=== PATIENT | female | born 1940 | race Two or more races ===

== ENCOUNTER → 2018-02-17 | Outpatient (CLI) | payer OTHER, MEDICAID | END | disposition home or self-care (01) | LOC: Rad HDHVI 15:59 | PROVIDERS: ATTEND Internal Medicine | DX: I87.2 Venous insufficiency (chronic) (peripheral) (principal); R00.2 Palpitations | CPT/HCPCS: 93306 ==

== ENCOUNTER → 2018-02-18 | Outpatient (CLI) | payer OTHER, MEDICAID ==
[~2018-02-18] VITALS: Ht 154.9 cm; Wt 88.0 kg
[~2018-02-18] MED LIST: ADENOSINE 74 MG in GIVE UN-DILUTED 0 ML IV ONE; ADENOSINE 90 MG/30 ML INJ IV ONE
== END | disposition home or self-care (01) ==
LOC: Rad HDHVI 10:01
PROVIDERS: ATTEND Internal Medicine
DX: I10 Essential (primary) hypertension (principal); I87.2 Venous insufficiency (chronic) (peripheral); I83.90 Asymptomatic varicose veins of unspecified lower extremity; E78.5 Hyperlipidemia, unspecified; J45.909 Unspecified asthma, uncomplicated; R00.2 Palpitations
CPT/HCPCS: 78452; 93005; 96374; 96375; A9500; J0153

== ENCOUNTER 2018-07-25 19:43 | Inpatient (IN) | payer OTHER, MEDICAID | END 2018-08-12 18:00 | disposition home or self-care (01) | LOC: OVERFLOW 07-26 04:34 → TELE-CENTR 08-05 13:25 → CENTRAL 08-10 13:37 → WEST WING 07-26 05:26 → TELE-CENTR 08-05 17:30 → ICU WEST 08-01 20:47 → WEST WING 07-26 05:18 → ER 19:43 | PROC: 0DV40ZZ Restriction of Esophagogastric Junction, Open Approach (ICD-10-PCS; 2018-07-27 11:25) | PROC: 5A1945Z Respiratory Ventilation, 24-96 Consecutive Hours (ICD-10-PCS; 2018-07-27 11:25) | PROC: 0BH17EZ Insertion of Endotracheal Airway into Trachea, Via Natural or Artificial Opening (ICD-10-PCS; 2018-07-27 11:25) | PROC: 0DS60ZZ Reposition Stomach, Open Approach (ICD-10-PCS; 2018-07-27 11:25) | PROC: 0DJD8ZZ Inspection of Lower Intestinal Tract, Via Natural or Artificial Opening Endoscopic (ICD-10-PCS; principal; 2018-07-27 11:45) | DX: K44.9 Diaphragmatic hernia without obstruction or gangrene (principal); K92.1 Melena; K57.30 Diverticulosis of large intestine without perforation or abscess without bleeding; I10 Essential (primary) hypertension; E78.5 Hyperlipidemia, unspecified; E66.9 Obesity, unspecified; K59.00 Constipation, unspecified; K64.8 Other hemorrhoids; K37 Unspecified appendicitis; S93.409A Sprain of unspecified ligament of unspecified ankle, initial encounter; D64.9 Anemia, unspecified ==

== ENCOUNTER 2018-09-25 00:13 | Emergency (ER) | payer OTHER, MEDICAID ==
[~2018-09-25] VITALS: Ht 147.3 cm; Wt 81.6 kg
[2018-09-25 03:11] VITALS: BP 111/56
[2018-09-25] MEDS ORDERED: HYDROcodone-ACET 5/325MG TAB PO ONE (04:00)
[2018-09-25] MEDS ORDERED: cefTRIAXone 1GM/50ML D5W 50 ML IV ONE (04:00)
[2018-09-25 05:31] LABS: Urine Bacteria FEW /hpf (None Seen); Urine Blood Negative /uL (Negative); Urine Mucus FEW (None Seen); Urine Specific Gravity 1.008 (1.001-1.035); Urine WBC 1 /hpf (0 - 5)
== END 2018-09-25 05:01 | disposition home or self-care (01) ==
LOC: EDBD 00:13 → ER 00:15
DX: N39.0 Urinary tract infection, site not specified (principal); J45.909 Unspecified asthma, uncomplicated; E78.5 Hyperlipidemia, unspecified; I10 Essential (primary) hypertension; M54.5 Low back pain; G89.29 Other chronic pain; Z90.49 Acquired absence of other specified parts of digestive tract
CPT/HCPCS: 81001; 96365; 99283; J0696

== ENCOUNTER 2019-06-26 12:21 | Emergency (ER) | payer OTHER, MEDICAID ==
[~2019-06-26] VITALS: Ht 152.4 cm; Wt 90.7 kg
[2019-06-26 16:59] VITALS: BP 137/64
== END 2019-06-26 17:26 | disposition home or self-care (01) ==
LOC: ER 12:26
DX: M17.11 Unilateral primary osteoarthritis, right knee (principal); D16.9 Benign neoplasm of bone and articular cartilage, unspecified; J45.909 Unspecified asthma, uncomplicated; E78.5 Hyperlipidemia, unspecified; I10 Essential (primary) hypertension
CPT/HCPCS: 73562

== ENCOUNTER → 2020-07-31 | Outpatient (CLI) | payer OTHER, MEDICAID | END | disposition home or self-care (01) | LOC: Rad HDHVI 08:17 | PROVIDERS: ATTEND Internal Medicine | DX: I08.2 Rheumatic disorders of both aortic and tricuspid valves (principal); R00.2 Palpitations; R07.9 Chest pain, unspecified | CPT/HCPCS: 93306 ==

== ENCOUNTER → 2020-08-22 | Outpatient (CLI) | payer OTHER, MEDICAID ==
[~2020-08-22] VITALS: Ht 160 cm; Wt 90.7 kg
[~2020-08-22] MED LIST changes: -ADENOSINE 74 MG in GIVE UN-DILUTED 0 ML IV ONE; +ADENOSINE 76 MG in GIVE UN-DILUTED 0 ML IV ONE
== END | disposition home or self-care (01) ==
LOC: Rad HDHVI 13:19
PROVIDERS: ATTEND Internal Medicine
DX: R06.02 Shortness of breath (principal); I10 Essential (primary) hypertension; E78.00 Pure hypercholesterolemia, unspecified; R07.9 Chest pain, unspecified; R00.2 Palpitations
CPT/HCPCS: 78452; 93005; 96374; 96375; A9500; J0153

== ENCOUNTER 2020-11-06 07:01 | Day surgery (SDC) | payer OTHER, MEDICAID ==
[~2020-11-06] VITALS: Ht 154.9 cm; Wt 93.0 kg
[~2020-11-06 07:01] MED LIST changes: -ADENOSINE 76 MG in GIVE UN-DILUTED 0 ML IV ONE; -ADENOSINE 90 MG/30 ML INJ IV ONE; +AML5T PO; +ASPI-498 PO; +ATOR40TA52 PO; +CHOL20007 PO; +FURO20TA3 PO; +POTA8TAB2 PO; +TIOT1AER INH; +ZOLP5TAB PO
[2020-11-06] MEDS ORDERED: VERAPAMIL 2.5MG/ML INJ 2ML VIAL IV ONE (08:19)
[2020-11-06] MEDS ORDERED: HEPARIN SODIUM (PORCINE) 5000 UNITS/ML 1ML VIAL ONE (08:19)
[2020-11-06] MEDS ORDERED: ANGIOMAX 250 MG VIAL IV ONE (08:19)
[2020-11-06] MEDS ORDERED: SODIUM CHL 0.9% 0 ML ONE (08:20)
[2020-11-06] MEDS ORDERED: MIDAZOLAM HCL 2MG/2ML 2ml VIAL (1mg/ml) ONE (08:20)
[2020-11-06] MEDS ORDERED: LIDOCAINE 2%HCL (LOCAL ANESTH.) INJ 20ML MDV ONE (08:20)
[2020-11-06] MEDS ORDERED: fentaNYL CITRATE 100 MCG/2 ML VL ONE (08:20)
[2020-11-06] MEDS ORDERED: ATROPINE SULF 1 MG/10ml SYR ONE (09:12)
[2020-11-06] MEDS ORDERED: ONDANSETRON HCL 4 MG/2 ML VIAL IV PRN (09:45)
[2020-11-06] MEDS ORDERED: HYDROcodone-ACET 5/325MG TAB PO PRN (09:45)
[2020-11-06] MEDS ORDERED: ACETAMINOPHEN 500 MG TAB PO PRN (09:45)
== END 2020-11-06 12:47 | disposition home or self-care (01) ==
LOC: CATH 07:01
PROVIDERS: ATTEND Internal Medicine
DX: R94.39 Abnormal result of other cardiovascular function study (principal); I10 Essential (primary) hypertension; E78.5 Hyperlipidemia, unspecified; J98.4 Other disorders of lung; Z79.82 Long term (current) use of aspirin; Z20.822 Contact with and (suspected) exposure to COVID-19; Z98.890 Other specified postprocedural states; Z79.899 Other long term (current) drug therapy; Z68.38 Body mass index [BMI] 38.0-38.9, adult
CPT/HCPCS: 93458; C1887; C1894; J1644; J2250; J3010; J7030; U0003; 99152

== ENCOUNTER 2020-11-12 18:30 | Emergency (ER) | payer OTHER, MEDICAID ==
[~2020-11-12] VITALS: Ht 154.9 cm; Wt 93.0 kg
[2020-11-12 19:12] LABS: Basophils # (auto) 0.1 10 ^3/uL (0-0.2); Basophils % (auto) 0.8 % (0.0-2.0); Eosinophils # (auto) 0.2 10 ^3/uL (0-0.8); Eosinophils % (auto) 3.4 % (0.0-7.0); Hematocrit 39.5 % (36.0-46.0); Hemoglobin 13.5 g/dL (12.2-16.2); Lymphocytes # (auto) 2.2 10 ^3/uL (0.4-5.4); Lymphocytes % (auto) 32.1 % (10.0-50.0); Mean Corpuscular Hemoglobin 31.2 pg (28.0-32.0); Mean Corpuscular Hgb Conc. 34.2 g/dL (32.0-36.0); Mean Corpuscular Volume 91.2 fL (80.0-100.0); Monocytes # (auto) 0.6 10 ^3/uL (0-1.3); Monocytes % (auto) 8.5 % (0.0-12.0); Neutrophils # (auto) 3.8 10 ^3/uL (1.6-8.6); Neutrophils % (auto) 55.2 % (37.0-80.0); Nucleated Red Blood Cells % 0.1 %; Platelet Count (auto) 223 10^3/uL (140-450); Red Blood Cells 4.33 10^6/uL (4.0-5.20); Red Cell Distribution Width 13.5 % (11.8-14.3); White Blood Cell 6.9 10^3/uL (4.4-10.8)
[2020-11-12 19:26] LABS: INR 0.93 (0.9-1.15)
[2020-11-12 19:27] LABS: Albumin 3.6 g/dL (3.4-5.0); Calcium 8.2 mg/dL (8.5-10.1); Lipase 113 U/L (73-393); Magnesium 2.2 mg/dL (1.6-2.6); Potassium 3.7 mmol/L (3.5-5.1)
[2020-11-12 19:31] LABS: BUN/Creatinine Ratio 21.2; Bilirubin, Total 0.3 mg/dL (0.2-1.0); Total Protein 7.1 g/dL (6.4-8.2)
[2020-11-12 21:57] LABS: Urine Bacteria NONE SEEN /hpf (None Seen); Urine Blood Negative /uL (Negative); Urine Specific Gravity 1.025 (1.001-1.035); Urine WBC 2 /hpf (0 - 5)
[2020-11-12] MEDS ORDERED: IOHEXOL 300 MG/ML 100ML BOTTLE IJ ONE (22:03)
[2020-11-13 00:01] VITALS: BP 123/56
== END 2020-11-13 01:45 | disposition home or self-care (01) ==
LOC: ER 18:32
DX: K43.9 Ventral hernia without obstruction or gangrene (principal); J45.909 Unspecified asthma, uncomplicated; E78.5 Hyperlipidemia, unspecified; I10 Essential (primary) hypertension; Z87.440 Personal history of urinary (tract) infections; Z87.442 Personal history of urinary calculi; Z90.49 Acquired absence of other specified parts of digestive tract; Z98.890 Other specified postprocedural states; Z79.899 Other long term (current) drug therapy; Z79.82 Long term (current) use of aspirin
CPT/HCPCS: 36415; 71045; 74177; 80053; 81001; 83605; 83690; 83735; 84484; 85025; 85610; 93005; 99285; Q9967

== ENCOUNTER 2021-04-09 11:33 | Inpatient (IN) | payer OTHER, MEDICAID ==
[~2021-04-09] VITALS: Ht 154.9 cm; Wt 94.8 kg
[2021-04-09] MEDS ORDERED: NEOSTIGMINE 1 MG/ML INJ (10mg/10ML VIAL) ONE (16:11)
[2021-04-09] MEDS ORDERED: fentaNYL CITRATE 100 MCG/2 ML VL ONE (16:11)
[2021-04-09] MEDS ORDERED: ONDANSETRON HCL 4 MG/2 ML VIAL ONE (16:11)
[2021-04-09] MEDS ORDERED: ROCURONIUM 10MG/ML 10ML VIAL IV ONE (16:11)
[2021-04-09] MEDS ORDERED: MEPERIDINE HCL (25 MG/ML) 1ML VIAL ONE (16:11)
[2021-04-09] MEDS ORDERED: MIDAZOLAM HCL 2MG/2ML 2ml VIAL (1mg/ml) ONE (16:11)
[2021-04-09] MEDS ORDERED: PROPOFOL 10 MG/ML 20 ML IV ONE (16:11)
[2021-04-09] MEDS ORDERED: SODIUM CHLORIDE LOCK 10 ML ONE (16:11)
[2021-04-09] MEDS ORDERED: GLYCOPYRROLATE 0.2 MG/ML 1ML VIAL ONE (16:11)
[2021-04-09] MEDS ORDERED: hydrALAZINE HCL 20 MG/ML VL ONE (16:24)
[2021-04-09] MEDS ORDERED: LIDOCAINE W/ EPINEPHRINE 1% 20ML VIAL ONE (16:41)
[2021-04-09] MEDS ORDERED: BUPIVACAINE 0.25% INJ 50ML VIAL ONE (16:42)
[2021-04-09] MEDS ORDERED: SUCCINYLCHOLINE CHLORIDE 20 MG/ML 10ML VIAL IV ONE (16:53)
[2021-04-09] MEDS ORDERED: ceFAZolin 1GM/50ML 100 ML IV ONE (17:04)
[2021-04-09] MEDS ORDERED: POVIDONE IODINE 10 % TOPICAL OINT 30GM TOP ONE (18:17)
[2021-04-09] MEDS ORDERED: METOCLOPRAMIDE HCL 5MG/ml INJ 2ml VIAL IV PRN (18:45)
[2021-04-09] MEDS ORDERED: MORPHINE SULFATE 4 MG/ML SYR/VIAL IV PRN (18:45)
[2021-04-09] MEDS ORDERED: ONDANSETRON HCL 4 MG/2 ML VIAL IV PRN (18:45)
[2021-04-09] MEDS ORDERED: HYDROmorphone HCL 2 MG/ML VL IV PRN (18:45)
[2021-04-09] MEDS: HYDROmorphone HCL 2 MG/ML VL IV PRN ×2 (18:45→19:32)
[2021-04-09] MEDS ORDERED: MORPHINE SULFATE INJECTION 2 MG/ML SYRG IV PRN (19:45)
[2021-04-09] MEDS ORDERED: NITROGLYCERIN 0.4 MG SL TAB SL PRN (19:45)
[2021-04-09] MEDS ORDERED: hydrALAZINE HCL 20 MG/ML VL IV PRN (19:45)
[2021-04-09 21:30] VITALS: BP 136/97
[2021-04-09 21:37] VITALS: BP 136/97
[2021-04-09] MEDS: D5W/SOD CHL 0.45%/KCL 20MEQ 1,000 ML IV SCH (21:37)
[2021-04-10] MEDS ORDERED: PNEUMOCOCCAL VACC POLYS 25 MCG/0.5 ML VIAL IM ONE (01:30)
[2021-04-10] MEDS ORDERED: INFLUENZA QUAD 2021-2022 0.5 ML SYRG IM ONE (01:30)
[2021-04-10 04:53] VITALS: BP 114/55
[2021-04-10 07:20] LABS: Basophils # (auto) 0 10 ^3/uL (0-0.2); Basophils % (auto) 0.3 % (0.0-2.0); Eosinophils # (auto) 0 10 ^3/uL (0-0.8); Hematocrit 38.8 % (36.0-46.0); Hemoglobin 13.2 g/dL (12.2-16.2); Lymphocytes # (auto) 0.6 10 ^3/uL (0.4-5.4); Lymphocytes % (auto) 8.3 % (10.0-50.0); Mean Corpuscular Hemoglobin 31.1 pg (28.0-32.0); Mean Corpuscular Hgb Conc. 34.1 g/dL (32.0-36.0); Mean Corpuscular Volume 91.3 fL (80.0-100.0); Monocytes # (auto) 0.1 10 ^3/uL (0-1.3); Neutrophils # (auto) 6.7 10 ^3/uL (1.6-8.6); Neutrophils % (auto) 90.4 % (37.0-80.0); Red Blood Cells 4.25 10^6/uL (4.0-5.20); Red Cell Distribution Width 13.7 % (11.8-14.3); White Blood Cell 7.5 10^3/uL (4.4-10.8)
[2021-04-10 07:30] LABS: Albumin 2.9 g/dL (3.4-5.0); Calcium 8.1 mg/dL (8.5-10.1); Potassium 4.3 mmol/L (3.5-5.1)
[2021-04-10 07:33] LABS: BUN/Creatinine Ratio 18.8; Bilirubin, Total 0.3 mg/dL (0.2-1.0); Total Protein 6.2 g/dL (6.4-8.2)
[2021-04-10 09:00] VITALS: BP 129/72
[2021-04-10] MEDS ORDERED: cefTRIAXone 1GM/50ML D5W 50 ML IV ONE (09:00)
[2021-04-10] MEDS: PANTOPRAZOLE 40 MG/10 ML VIAL INJ IV SCH (10:36)
[2021-04-10] MEDS: D5W/SOD CHL 0.45%/KCL 20MEQ 1,000 ML IV SCH ×2 (11:45→23:50)
[2021-04-10 13:00] VITALS: BP 124/50
[2021-04-10 17:00] VITALS: BP 156/56
[2021-04-10] MEDS ORDERED: BENA20TA14 PO (18:02)
[2021-04-10 22:00] VITALS: BP 129/50
[2021-04-11 03:08] VITALS: BP 129/50
[2021-04-11 05:00] VITALS: BP 143/50
[2021-04-11 09:00] VITALS: BP 136/68
[2021-04-11 09:28] LABS: Basophils # (auto) 0 10 ^3/uL (0-0.2); Basophils % (auto) 0.6 % (0.0-2.0); Eosinophils # (auto) 0 10 ^3/uL (0-0.8); Eosinophils % (auto) 0.4 % (0.0-7.0); Hematocrit 37.1 % (36.0-46.0); Hemoglobin 12.3 g/dL (12.2-16.2); Lymphocytes # (auto) 1.4 10 ^3/uL (0.4-5.4); Lymphocytes % (auto) 18.2 % (10.0-50.0); Mean Corpuscular Hemoglobin 30.5 pg (28.0-32.0); Mean Corpuscular Hgb Conc. 33.2 g/dL (32.0-36.0); Mean Corpuscular Volume 91.9 fL (80.0-100.0); Monocytes # (auto) 0.6 10 ^3/uL (0-1.3); Monocytes % (auto) 7.8 % (0.0-12.0); Neutrophils # (auto) 5.8 10 ^3/uL (1.6-8.6); Red Blood Cells 4.04 10^6/uL (4.0-5.20); Red Cell Distribution Width 13.9 % (11.8-14.3); White Blood Cell 7.9 10^3/uL (4.4-10.8)
[2021-04-11] MEDS: PANTOPRAZOLE 40 MG/10 ML VIAL INJ IV SCH (09:30)
[2021-04-11 09:45] LABS: BUN/Creatinine Ratio 17.9; Calcium 8.4 mg/dL (8.5-10.1); Magnesium 2.4 mg/dL (1.6-2.6); Potassium 4.3 mmol/L (3.5-5.1)
[2021-04-11 09:57] LABS: Cholesterol 166 mg/dL (< 200); HDL Cholesterol 53 mg/dL (40-59); LDL Cholesterol 95 mg/dL (< 100); Triglycerides 130 mg/dL (< 150)
[2021-04-11] MEDS: D5W/SOD CHL 0.45%/KCL 20MEQ 1,000 ML IV SCH ×2 (11:11→14:09)
[2021-04-11] MEDS: DOCUSATE SOD 100 MG CAP PO PRN ×2 (11:12→21:43)
[2021-04-11 13:00] VITALS: BP 139/65
[2021-04-11 16:48] VITALS: BP 156/97
[2021-04-11 22:00] VITALS: BP 147/66
[2021-04-12 05:00] VITALS: BP_SYST 150; BP_SYST 167; BP_DIAS 71; BP_DIAS 89
[2021-04-12] MEDS: D5W/SOD CHL 0.45%/KCL 20MEQ 1,000 ML IV SCH (06:25)
[2021-04-12] MEDS: IPRATROPIUM BROM 0.5 MG/2.5ML INH SOL NEB PRN (07:01)
[2021-04-12] MEDS: ALBUTEROL SULF 2.5 MG/0.5ML(0.5%) NEB SOLN NEB PRN (07:01)
[2021-04-12 09:00] VITALS: BP 155/75
[2021-04-12] MEDS: PANTOPRAZOLE 40 MG/10 ML VIAL INJ IV SCH (09:18)
[2021-04-12 13:00] VITALS: BP 142/65
[2021-04-12] MEDS ORDERED: D5W/SOD CHL 0.45%/KCL 20MEQ 1,000 ML IV SCH (16:00)
[2021-04-12 17:00] VITALS: BP 146/79
[2021-04-12] MEDS: amLODIPine BESYLATE 5 MG TAB PO SCH (17:25)
[2021-04-12 22:00] VITALS: BP 140/62
[2021-04-13 05:00] VITALS: BP 139/73
[2021-04-13] MEDS: ALBUTEROL SULF 2.5 MG/0.5ML(0.5%) NEB SOLN NEB PRN (06:39)
[2021-04-13] MEDS: IPRATROPIUM BROM 0.5 MG/2.5ML INH SOL NEB PRN (06:39)
[2021-04-13 07:28] LABS: Basophils # (auto) 0.1 10 ^3/uL (0-0.2); Basophils % (auto) 0.9 % (0.0-2.0); Eosinophils # (auto) 0.5 10 ^3/uL (0-0.8); Eosinophils % (auto) 7.2 % (0.0-7.0); Hematocrit 40.3 % (36.0-46.0); Hemoglobin 13.2 g/dL (12.2-16.2); Lymphocytes % (auto) 30.7 % (10.0-50.0); Mean Corpuscular Hemoglobin 29.8 pg (28.0-32.0); Mean Corpuscular Hgb Conc. 32.7 g/dL (32.0-36.0); Monocytes # (auto) 0.6 10 ^3/uL (0-1.3); Monocytes % (auto) 9.4 % (0.0-12.0); Neutrophils # (auto) 3.4 10 ^3/uL (1.6-8.6); Neutrophils % (auto) 51.8 % (37.0-80.0); Red Blood Cells 4.42 10^6/uL (4.0-5.20); Red Cell Distribution Width 13.9 % (11.8-14.3); White Blood Cell 6.5 10^3/uL (4.4-10.8)
[2021-04-13 07:49] LABS: BUN/Creatinine Ratio 11.8; Calcium 8.4 mg/dL (8.5-10.1); Magnesium 2.2 mg/dL (1.6-2.6); Potassium 4.3 mmol/L (3.5-5.1)
[2021-04-13 09:00] VITALS: BP 157/57
[2021-04-13] MEDS: PANTOPRAZOLE 40 MG/10 ML VIAL INJ IV SCH (10:35)
[2021-04-13] MEDS: amLODIPine BESYLATE 5 MG TAB PO SCH (10:36)
[2021-04-13 13:00] VITALS: BP 152/79
[2021-04-13] MEDS ORDERED: INFLUENZA QUAD 2021-2022 0.5 ML SYRG IM ONE (17:15)
== END 2021-04-13 17:55 | disposition home health service (06) | DRG 355 ==
LOC: SUR 11:33 → TELE 19:33 → TELE-WESTW 20:45
PROVIDERS: ADMIT Nurse Practitioner Acute Care; ATTEND Internal Medicine
PROC: 0WQF0ZZ Repair Abdominal Wall, Open Approach (ICD-10-PCS; principal; 2021-04-09 17:03)
DX: K43.6 Other and unspecified ventral hernia with obstruction, without gangrene (principal); K44.9 Diaphragmatic hernia without obstruction or gangrene; I10 Essential (primary) hypertension; E66.9 Obesity, unspecified; G47.33 Obstructive sleep apnea (adult) (pediatric); E78.5 Hyperlipidemia, unspecified; J45.909 Unspecified asthma, uncomplicated; Z68.38 Body mass index [BMI] 38.0-38.9, adult
CPT/HCPCS: 36415; 80048; 80053; 80061; 83735; 85025; 90686; 97163; C9113; G0378; J0330; J0690; J0696; J2250; J2405; J2704; J3490

== ENCOUNTER 2023-01-01 06:41 | Inpatient (IN) | payer OTHER, MEDICAID ==
[~2023-01-01] VITALS: Ht 154.9 cm; Wt 103.0 kg
[~2023-01-01 06:41] MED LIST changes: +BENA-36 PO; -POTA8TAB2 PO; +POTA8TAB38 PO; -ZOLP5TAB PO
[2023-01-01 07:20] LABS: Basophils # (auto) 0.1 10 ^3/uL (0-0.2); Eosinophils # (auto) 0.2 10 ^3/uL (0-0.8); Eosinophils % (auto) 3.2 % (0.0-7.0); Hematocrit 41.8 % (36.0-46.0); Hemoglobin 13.7 g/dL (12.2-16.2); Lymphocytes # (auto) 2.5 10 ^3/uL (0.4-5.4); Lymphocytes % (auto) 34.1 % (10.0-50.0); Mean Corpuscular Hemoglobin 30.3 pg (28.0-32.0); Mean Corpuscular Hgb Conc. 32.7 g/dL (32.0-36.0); Mean Corpuscular Volume 92.6 fL (80.0-100.0); Monocytes # (auto) 0.6 10 ^3/uL (0-1.3); Monocytes % (auto) 8.3 % (0.0-12.0); Neutrophils # (auto) 3.9 10 ^3/uL (1.6-8.6); Neutrophils % (auto) 53.4 % (37.0-80.0); Nucleated Red Blood Cells % 0.2 %; Red Blood Cells 4.51 10^6/uL (4.0-5.20); Red Cell Distribution Width 13.4 % (11.8-14.3); White Blood Cell 7.3 10^3/uL (4.4-10.8)
[2023-01-01 07:24] LABS: INR 0.95 (0.9-1.15); Partial Thromboplastin Time 26.5 SEC (24.5-34.5)
[2023-01-01 07:27] LABS: Albumin 3.6 g/dL (3.4-5.0); Calcium 9.2 mg/dL (8.5-10.1); Potassium 4.8 mmol/L (3.5-5.1)
[2023-01-01 07:31] LABS: BUN/Creatinine Ratio 23.1 (10.0-20.0); Bilirubin, Total 0.5 mg/dL (0.2-1.0); Total Protein 6.7 g/dL (6.4-8.2)
[2023-01-01] MEDS ORDERED: PRED20TA2 PO (07:54)
[2023-01-01] MEDS ORDERED: IPRATROPIUM BROM 0.5 MG/2.5ML INH SOL NEB ONE (08:00)
[2023-01-01] MEDS ORDERED: predniSONE 20 MG TAB PO ONE (08:00)
[2023-01-01] MEDS ORDERED: ALBUTEROL SULF 2.5 MG/0.5ML(0.5%) NEB SOLN NEB ONE (08:00)
[2023-01-01] MEDS ORDERED: IOHEXOL 350 MG/ML 100ML IJ ONE (09:44)
[2023-01-01] MEDS ORDERED: IPRATROPIUM BROM 0.5 MG/2.5ML INH SOL NEB PRN (12:45)
[2023-01-01] MEDS ORDERED: ONDANSETRON HCL 4 MG/2 ML VIAL IV PRN (12:45)
[2023-01-01] MEDS ORDERED: ALBUTEROL SULF 2.5 MG/0.5ML(0.5%) NEB SOLN NEB PRN (12:45)
[2023-01-01] MEDS ORDERED: MORPHINE SULFATE INJ 2 MG/ml SYRG IV PRN (12:45)
[2023-01-01 16:01] VITALS: BP 133/58
[2023-01-01] MEDS: ATORVASTATIN 20 MG TAB PO SCH (20:45)
[2023-01-01] MEDS: [UNRECOGNIZED DRUG - OTHER] IN SCH (20:46)
[2023-01-01 22:00] VITALS: BP 154/68
[2023-01-02] MEDS ORDERED: MELATONIN 5 MG TAB PO ONE (01:45)
[2023-01-02 05:00] VITALS: BP 155/85
[2023-01-02 06:07] LABS: Basophils # (auto) 0.1 10 ^3/uL (0-0.2); Basophils % (auto) 0.8 % (0.0-2.0); Eosinophils # (auto) 0.1 10 ^3/uL (0-0.8); Eosinophils % (auto) 1.2 % (0.0-7.0); Hematocrit 36.7 % (36.0-46.0); Hemoglobin 12.4 g/dL (12.2-16.2); Lymphocytes # (auto) 2.2 10 ^3/uL (0.4-5.4); Lymphocytes % (auto) 25.7 % (10.0-50.0); Mean Corpuscular Hemoglobin 30.7 pg (28.0-32.0); Mean Corpuscular Hgb Conc. 33.7 g/dL (32.0-36.0); Mean Corpuscular Volume 91.2 fL (80.0-100.0); Monocytes # (auto) 0.7 10 ^3/uL (0-1.3); Monocytes % (auto) 8.5 % (0.0-12.0); Neutrophils # (auto) 5.6 10 ^3/uL (1.6-8.6); Neutrophils % (auto) 63.8 % (37.0-80.0); Nucleated Red Blood Cells % 0.1 %; Red Blood Cells 4.03 10^6/uL (4.0-5.20); Red Cell Distribution Width 13.5 % (11.8-14.3); White Blood Cell 8.7 10^3/uL (4.4-10.8)
[2023-01-02 06:21] LABS: Potassium 3.8 mmol/L (3.5-5.1)
[2023-01-02 06:29] LABS: Albumin 2.9 g/dL (3.4-5.0); BUN/Creatinine Ratio 27.8 (10.0-20.0); Bilirubin, Total 0.4 mg/dL (0.2-1.0); Calcium 8.3 mg/dL (8.5-10.1)
[2023-01-02] MEDS: ASPirin-EC 81 mg tab PO SCH (06:46)
[2023-01-02] MEDS: FUROSEMIDE 20 MG TAB PO SCH (06:47)
[2023-01-02] MEDS: amLODIPine BESYLATE 5 MG TAB PO SCH (06:48)
[2023-01-02 09:11] VITALS: BP 107/65
[2023-01-02] MEDS: PANTOPRAZOLE 40 MG/10 ML VIAL INJ IV SCH (10:03)
[2023-01-02] MEDS: DOCUSATE SOD 100 MG CAP PO PRN (10:03)
[2023-01-02] MEDS: BENAZEPRIL HCL 10 MG TAB PO SCH (10:04)
[2023-01-02] MEDS: CHOLECALCIFEROL (VITD3) 2,000 UNIT CAP/TAB PO SCH (10:04)
[2023-01-02] MEDS: predniSONE 20 MG TAB PO SCH (10:04)
[2023-01-02 13:00] VITALS: BP 111/69
[2023-01-02 17:00] VITALS: BP 133/61
[2023-01-02] MEDS: [UNRECOGNIZED DRUG - OTHER] IN SCH (18:00)
[2023-01-02] MEDS: ATORVASTATIN 20 MG TAB PO SCH (18:48)
[2023-01-02 22:00] VITALS: BP 142/62
[2023-01-03 05:00] VITALS: BP 156/73
[2023-01-03] MEDS: ASPirin-EC 81 mg tab PO SCH (06:02)
[2023-01-03] MEDS: FUROSEMIDE 20 MG TAB PO SCH (06:03)
[2023-01-03] MEDS: amLODIPine BESYLATE 5 MG TAB PO SCH (06:03)
[2023-01-03 09:00] VITALS: BP 149/55
[2023-01-03] MEDS: DOCUSATE SOD 100 MG CAP PO PRN (09:13)
[2023-01-03] MEDS: PANTOPRAZOLE 40 MG/10 ML VIAL INJ IV SCH (09:13)
[2023-01-03] MEDS: CHOLECALCIFEROL (VITD3) 2,000 UNIT CAP/TAB PO SCH (09:13)
[2023-01-03] MEDS: predniSONE 20 MG TAB PO SCH (09:13)
[2023-01-03] MEDS: BENAZEPRIL HCL 10 MG TAB PO SCH (09:14)
[2023-01-03 13:00] VITALS: BP 135/91
[2023-01-03 17:00] VITALS: BP 109/43
[2023-01-03] MEDS: ATORVASTATIN 20 MG TAB PO SCH (17:12)
[2023-01-03] MEDS: [UNRECOGNIZED DRUG - OTHER] IN SCH (17:12)
[2023-01-03 22:00] VITALS: BP 118/57
[2023-01-03] MEDS: ZOLPIDEM TARTRATE 5 MG TAB PO PRN (23:56)
[2023-01-04] VITALS (7 sets, daily range): BP systolic 118–146; BP diastolic 49–76
[2023-01-04] MEDS: ASPirin-EC 81 mg tab PO SCH (06:19)
[2023-01-04] MEDS: FUROSEMIDE 20 MG TAB PO SCH (06:20)
[2023-01-04] MEDS: amLODIPine BESYLATE 5 MG TAB PO SCH (06:20)
[2023-01-04] MEDS: BENAZEPRIL HCL 10 MG TAB PO SCH (09:07)
[2023-01-04] MEDS: CHOLECALCIFEROL (VITD3) 2,000 UNIT CAP/TAB PO SCH (09:07)
[2023-01-04] MEDS: predniSONE 20 MG TAB PO SCH (09:07)
[2023-01-04] MEDS: PANTOPRAZOLE 40 MG/10 ML VIAL INJ IV SCH (09:07)
[2023-01-04] MEDS: ATORVASTATIN 20 MG TAB PO SCH (17:16)
[2023-01-04] MEDS: [UNRECOGNIZED DRUG - OTHER] IN SCH (17:55)
[2023-01-04] MEDS: ZOLPIDEM TARTRATE 5 MG TAB PO PRN (21:23)
[2023-01-05] VITALS (8 sets, daily range): BP systolic 119–148; BP diastolic 43–77
[2023-01-05] MEDS: FUROSEMIDE 20 MG TAB PO SCH (07:00)
[2023-01-05] MEDS: amLODIPine BESYLATE 5 MG TAB PO SCH (07:00)
[2023-01-05] MEDS: ASPirin-EC 81 mg tab PO SCH (07:00)
[2023-01-05] MEDS: CHOLECALCIFEROL (VITD3) 2,000 UNIT CAP/TAB PO SCH (09:12)
[2023-01-05] MEDS ORDERED: ADENOSINE 87 MG in GIVE UN-DILUTED 0 ML IV STA (09:22)
[2023-01-05] MEDS: BENAZEPRIL HCL 10 MG TAB PO SCH (09:57)
[2023-01-05] MEDS: predniSONE 20 MG TAB PO SCH (09:57)
[2023-01-05] MEDS: DOCUSATE SOD 100 MG CAP PO PRN (17:35)
[2023-01-05] MEDS: ATORVASTATIN 20 MG TAB PO SCH (17:35)
[2023-01-05] MEDS: [UNRECOGNIZED DRUG - OTHER] IN SCH (17:36)
[2023-01-05] MEDS: ZOLPIDEM TARTRATE 5 MG TAB PO PRN (23:06)
[2023-01-06 05:00] VITALS: BP 136/57
[2023-01-06] MEDS: ASPirin-EC 81 mg tab PO SCH (06:06)
[2023-01-06] MEDS: amLODIPine BESYLATE 5 MG TAB PO SCH (06:07)
[2023-01-06] MEDS: FUROSEMIDE 20 MG TAB PO SCH (06:07)
[2023-01-06 08:35] VITALS: BP 143/57
[2023-01-06] MEDS: predniSONE 20 MG TAB PO SCH (08:51)
[2023-01-06] MEDS: BENAZEPRIL HCL 10 MG TAB PO SCH (08:51)
[2023-01-06] MEDS: CHOLECALCIFEROL (VITD3) 2,000 UNIT CAP/TAB PO SCH (08:51)
[2023-01-06] MEDS ORDERED: LACT10PA2 PO (10:15)
[2023-01-06 12:41] VITALS: BP 130/60
== END 2023-01-06 13:31 | disposition home health service (06) | DRG 203 ==
LOC: ER 06:41 → OVERFLOW 12:46 → CENTRAL 17:40
PROVIDERS: ADMIT Nurse Practitioner Family; ATTEND Family Medicine
DX: J45.901 Unspecified asthma with (acute) exacerbation (principal); E78.00 Pure hypercholesterolemia, unspecified; I11.0 Hypertensive heart disease with heart failure; I50.9 Heart failure, unspecified; Z90.49 Acquired absence of other specified parts of digestive tract; Z87.442 Personal history of urinary calculi
CPT/HCPCS: 36415; 71045; 71275; 78452; 80053; 83880; 84484; 85025; 85379; 85610; 85730; 93005; 93017; 93306; 94640; C9113; G0378; J0153; J2405

== ENCOUNTER 2023-09-04 07:55 | Inpatient (IN) | payer OTHER, MEDICAID ==
[~2023-09-04] VITALS: Ht 152.4 cm; Wt 91.5 kg
[~2023-09-04 07:55] MED LIST changes: +LACT10PA2 PO; +PRED20TA2 PO
[2023-09-04 09:30] LABS: Basophils # (auto) 0.1 10 ^3/uL (0-0.2); Basophils % (auto) 1.2 % (0.0-2.0); Eosinophils # (auto) 0.3 10 ^3/uL (0-0.8); Eosinophils % (auto) 4.5 % (0.0-7.0); Hematocrit 42.6 % (36.0-46.0); Hemoglobin 13.9 g/dL (12.2-16.2); Lymphocytes # (auto) 2.3 10 ^3/uL (0.4-5.4); Lymphocytes % (auto) 33.4 % (10.0-50.0); Mean Corpuscular Hemoglobin 29.9 pg (28.0-32.0); Mean Corpuscular Hgb Conc. 32.6 g/dL (32.0-36.0); Mean Corpuscular Volume 91.7 fL (80.0-100.0); Monocytes # (auto) 0.6 10 ^3/uL (0-1.3); Monocytes % (auto) 9.1 % (0.0-12.0); Neutrophils # (auto) 3.6 10 ^3/uL (1.6-8.6); Neutrophils % (auto) 51.8 % (37.0-80.0); Nucleated Red Blood Cells % 0.1 %; Red Blood Cells 4.64 10^6/uL (4.0-5.20); Red Cell Distribution Width 14.5 % (11.8-14.3)
[2023-09-04 09:33] LABS: Urine Bacteria NONE SEEN /hpf (None Seen); Urine Blood Negative /uL (Negative); Urine Clarity Clear (Clear); Urine Color Yellow (Yellow); Urine Mucus FEW (None Seen); Urine Protein, UAD Negative (Negative); Urine Specific Gravity 1.025 (1.001-1.035); Urine Urobilinogen Normal (Negative); Urine WBC 3 /hpf (0 - 5); Urine pH 5.5 (5.0-8.0)
[2023-09-04 09:45] LABS: Alanine Aminotransferase 14 U/L (7-40); Albumin 4.3 g/dL (3.2-4.8); Alkaline Phosphatase 76 U/L (46-116); Anion Gap 2 (5-15); Aspartate Aminotransferase 17 U/L (13-40); BUN/Creatinine Ratio 17.8 (10.0-20.0); Blood Urea Nitrogen 13 mg/dL (9-23); Calcium 9.3 mg/dL (8.5-10.1); Carbon Dioxide 29 mmol/L (20-30); Chloride 111 mmol/L (98-107); Glucose 102 mg/dL (74-106); Potassium 5.2 mmol/L (3.5-5.1); Sodium 142 mmol/L (136-145)
[2023-09-04 09:46] LABS: Bilirubin, Total 0.5 mg/dL (0.2-1.0); Total Protein 6.9 g/dL (5.7-8.2)
[2023-09-04] MEDS: SODIUM CHLORIDE 0.9% 1,000 ML IV ONE (10:37)
[2023-09-04] MEDS: SODIUM CHLORIDE 0.9% 1,000 ML IV SCH (10:56)
[2023-09-04] MEDS: LACTULOSE 20Gm/30ML SOLN PO ONE (11:09)
[2023-09-04] MEDS: MILK OF MAGNESIA 30ML SUSP PO ONE (11:10)
[2023-09-04] MEDS: FLEET ENEMA(ADULT) 135 ML PR ONE (11:10)
[2023-09-04] MEDS: cefTRIAXone 1GM/50ML D5W 50 ML IV ONE (11:50)
[2023-09-04 11:57] LABS: LDL Cholesterol 98 mg/dL (< 100); Triglycerides 141 mg/dL (< 150)
[2023-09-04 11:59] LABS: Cholesterol 168 mg/dL (< 200); HDL Cholesterol 48 mg/dL (40-59)
[2023-09-04 18:56] VITALS: BP 120/59; PULSE 65; RESP 18; O2SAT 97
[2023-09-04 19:50] VITALS: O2SAT 95
[2023-09-04] MEDS: DOCUSATE SOD 100 MG CAP PO SCH (21:48)
[2023-09-04] MEDS: ATORVASTATIN 20 MG TAB PO SCH (21:48)
[2023-09-05] VITALS (8 sets, daily range): BP systolic 112–157; BP diastolic 50–81; PULSE 53–65; RESP 16–18; TEMP 97.4–98.9; O2SAT 93–98
[2023-09-05] MEDS: ACETAMINOPHEN 325 MG TAB PO PRN (01:41)
[2023-09-05 04:20] LABS: Basophils # (auto) 0.1 10 ^3/uL (0-0.2); Eosinophils # (auto) 0.4 10 ^3/uL (0-0.8); Eosinophils % (auto) 5.9 % (0.0-7.0); Hematocrit 38.7 % (36.0-46.0); Hemoglobin 12.7 g/dL (12.2-16.2); Lymphocytes # (auto) 2.5 10 ^3/uL (0.4-5.4); Lymphocytes % (auto) 36.6 % (10.0-50.0); Mean Corpuscular Hemoglobin 30.3 pg (28.0-32.0); Mean Corpuscular Hgb Conc. 32.8 g/dL (32.0-36.0); Mean Corpuscular Volume 92.2 fL (80.0-100.0); Monocytes # (auto) 0.6 10 ^3/uL (0-1.3); Monocytes % (auto) 9.6 % (0.0-12.0); Neutrophils # (auto) 3.2 10 ^3/uL (1.6-8.6); Neutrophils % (auto) 46.9 % (37.0-80.0); Nucleated Red Blood Cells % 0.1 %; Red Blood Cells 4.19 10^6/uL (4.0-5.20); Red Cell Distribution Width 14.4 % (11.8-14.3); White Blood Cell 6.7 10^3/uL (4.4-10.8)
[2023-09-05 04:39] LABS: Alanine Aminotransferase 13 U/L (7-40); Albumin 3.8 g/dL (3.2-4.8); Alkaline Phosphatase 67 U/L (46-116); Anion Gap 4 (5-15); Aspartate Aminotransferase 15 U/L (13-40); BUN/Creatinine Ratio 18.5 (10.0-20.0); Bilirubin, Total 0.4 mg/dL (0.2-1.0); Blood Urea Nitrogen 15 mg/dL (9-23); Calcium 9.1 mg/dL (8.7-10.4); Carbon Dioxide 26 mmol/L (20-30); Chloride 108 mmol/L (98-107); Glucose 99 mg/dL (74-106); Potassium 4.9 mmol/L (3.5-5.1); Sodium 138 mmol/L (136-145); Total Protein 6.2 g/dL (5.7-8.2)
[2023-09-05] MEDS ORDERED: RALO60TA14 PO (06:05)
[2023-09-05] MEDS ORDERED: FAMO-12 PO (06:05)
[2023-09-05] MEDS ORDERED: BUSP5TAB51 PO (06:05)
[2023-09-05] MEDS ORDERED: ENAL1TAB42 PO (06:05)
[2023-09-05] MEDS: FUROSEMIDE 20 MG TAB PO SCH (06:39)
[2023-09-05] MEDS: ASPirin-EC 81 mg tab PO SCH (06:39)
[2023-09-05] MEDS: amLODIPine BESYLATE 5 MG TAB PO SCH (06:39)
[2023-09-05] MEDS: ENOXAPARIN SOD 40 MG/0.4 ML SYRINGE SC SCH (09:26)
[2023-09-05] MEDS: CHOLECALCIFEROL (VITD3) 1,000UNIT=25mCg TAB PO SCH (09:26)
[2023-09-05] MEDS: cefTRIAXone 1GM/50ML D5W 50 ML IV SCH (09:43)
[2023-09-05] MEDS ORDERED: BENAZEPRIL HCL 10 MG TAB PO SCH (10:00)
[2023-09-05] MEDS: LACTULOSE 20Gm/30ML SOLN PO PRN (18:05)
[2023-09-06] VITALS (8 sets, daily range): BP systolic 128–151; BP diastolic 53–74; PULSE 55–85; RESP 17–18; TEMP 97.6–98.4; O2SAT 94–99
[2023-09-06] MEDS: MELATONIN 5 MG TAB PO ONE (03:00)
[2023-09-06 08:39] LABS: Hepatitis B Surface Antigen Negative (Negative)
[2023-09-06 09:01] LABS: Hepatitis C Antibody Negative (Negative)
[2023-09-06 12:22] LABS: Basophils # (auto) 0.1 10 ^3/uL (0-0.2); Eosinophils # (auto) 0.3 10 ^3/uL (0-0.8); Eosinophils % (auto) 5.4 % (0.0-7.0); Hematocrit 39.2 % (36.0-46.0); Hemoglobin 12.8 g/dL (12.2-16.2); Lymphocytes # (auto) 2.3 10 ^3/uL (0.4-5.4); Lymphocytes % (auto) 37.5 % (10.0-50.0); Mean Corpuscular Hemoglobin 29.9 pg (28.0-32.0); Mean Corpuscular Hgb Conc. 32.6 g/dL (32.0-36.0); Mean Corpuscular Volume 91.8 fL (80.0-100.0); Monocytes # (auto) 0.7 10 ^3/uL (0-1.3); Monocytes % (auto) 11.9 % (0.0-12.0); Neutrophils # (auto) 2.7 10 ^3/uL (1.6-8.6); Neutrophils % (auto) 44.2 % (37.0-80.0); Nucleated Red Blood Cells % 0.3 %; Red Blood Cells 4.27 10^6/uL (4.0-5.20); Red Cell Distribution Width 14.2 % (11.8-14.3); White Blood Cell 6.2 10^3/uL (4.4-10.8)
[2023-09-06 12:44] LABS: Alanine Aminotransferase 13 U/L (7-40); Albumin 3.6 g/dL (3.2-4.8); Alkaline Phosphatase 63 U/L (46-116); Anion Gap 5 (5-15); Aspartate Aminotransferase 15 U/L (13-40); BUN/Creatinine Ratio 16.2 (10.0-20.0); Bilirubin, Total 0.3 mg/dL (0.2-1.0); Blood Urea Nitrogen 11 mg/dL (9-23); Calcium 8.9 mg/dL (8.7-10.4); Carbon Dioxide 26 mmol/L (20-30); Chloride 108 mmol/L (98-107); Glucose 93 mg/dL (74-106); Potassium 4.4 mmol/L (3.5-5.1); Sodium 139 mmol/L (136-145); Total Protein 6.1 g/dL (5.7-8.2)
[2023-09-06] MEDS: SODIUM CHLORIDE 0.9% 1,000 ML IV SCH (12:45)
[2023-09-06 14:28] LABS: INR 0.96 (0.9-1.15); Partial Thromboplastin Time 29.7 SEC (24.5-34.5); Prothrombin Time 10.1 sec (9.3-11.8)
[2023-09-06] MEDS ORDERED: FAMO40TA7 PO (17:21)
[2023-09-06] MEDS ORDERED: GABA400C PO (17:27)
[2023-09-07] VITALS (13 sets, daily range): BP systolic 121–166; BP diastolic 49–86; PULSE 57–83; RESP 16–20; TEMP 97.3–98; O2SAT 94–100
[2023-09-07 06:18] LABS: Basophils # (auto) 0.1 10 ^3/uL (0-0.2); Basophils % (auto) 1.1 % (0.0-2.0); Eosinophils # (auto) 0.3 10 ^3/uL (0-0.8); Hematocrit 38.7 % (36.0-46.0); Hemoglobin 12.7 g/dL (12.2-16.2); Lymphocytes # (auto) 2.3 10 ^3/uL (0.4-5.4); Lymphocytes % (auto) 35.8 % (10.0-50.0); Mean Corpuscular Hemoglobin 30.3 pg (28.0-32.0); Mean Corpuscular Hgb Conc. 32.9 g/dL (32.0-36.0); Mean Corpuscular Volume 92.1 fL (80.0-100.0); Monocytes # (auto) 0.6 10 ^3/uL (0-1.3); Monocytes % (auto) 9.7 % (0.0-12.0); Neutrophils # (auto) 3.1 10 ^3/uL (1.6-8.6); Neutrophils % (auto) 48.4 % (37.0-80.0); Nucleated Red Blood Cells % 0.1 %; Red Cell Distribution Width 14.1 % (11.8-14.3); White Blood Cell 6.3 10^3/uL (4.4-10.8)
[2023-09-07 06:24] LABS: Anion Gap 6 (5-15); Carbon Dioxide 27 mmol/L (20-30); Chloride 108 mmol/L (98-107); Sodium 141 mmol/L (136-145)
[2023-09-07 06:30] LABS: BUN/Creatinine Ratio 15.2 (10.0-20.0); Blood Urea Nitrogen 10 mg/dL (9-23); Glucose 79 mg/dL (74-106); Magnesium 2.2 mg/dL (1.6-2.6)
[2023-09-07] MEDS: ALBUTEROL SULF 2.5 MG/0.5ML(0.5%) NEB SOLN NEB PRN (08:00)
[2023-09-07] MEDS ORDERED: hydrALAZINE HCL 20 MG/ML VL IV PRN (14:15)
[2023-09-08] VITALS (7 sets, daily range): BP systolic 107–142; BP diastolic 48–86; PULSE 64–94; RESP 16–20; TEMP 97.3–98.3; O2SAT 94–96
[2023-09-08 05:51] LABS: Basophils # (auto) 0.1 10 ^3/uL (0-0.2); Basophils % (auto) 0.7 % (0.0-2.0); Eosinophils # (auto) 0.2 10 ^3/uL (0-0.8); Eosinophils % (auto) 2.9 % (0.0-7.0); Hematocrit 39.5 % (36.0-46.0); Lymphocytes # (auto) 2.5 10 ^3/uL (0.4-5.4); Lymphocytes % (auto) 32.8 % (10.0-50.0); Mean Corpuscular Hemoglobin 30.2 pg (28.0-32.0); Mean Corpuscular Volume 91.5 fL (80.0-100.0); Monocytes # (auto) 0.8 10 ^3/uL (0-1.3); Monocytes % (auto) 9.8 % (0.0-12.0); Neutrophils # (auto) 4.1 10 ^3/uL (1.6-8.6); Neutrophils % (auto) 53.8 % (37.0-80.0); Red Blood Cells 4.31 10^6/uL (4.0-5.20); Red Cell Distribution Width 13.9 % (11.8-14.3); White Blood Cell 7.7 10^3/uL (4.4-10.8)
[2023-09-08 06:04] LABS: Anion Gap 10 (5-15); Carbon Dioxide 23 mmol/L (20-30); Chloride 108 mmol/L (98-107); Potassium 3.9 mmol/L (3.5-5.1); Sodium 141 mmol/L (136-145)
[2023-09-08 06:10] LABS: Blood Urea Nitrogen 12 mg/dL (9-23); Glucose 79 mg/dL (74-106)
[2023-09-08 06:11] LABS: Magnesium 2.2 mg/dL (1.6-2.6)
[2023-09-08] MEDS ORDERED: GASTROGRAFIN 120 ML SOL ONE (07:07)
== END 2023-09-08 14:03 | disposition home or self-care (01) | DRG 394 ==
LOC: ER 07:55 → OVERFLOW 10:49 → WEST WING 09-05 04:45
PROVIDERS: ADMIT Internal Medicine Geriatric Medicine; ATTEND Internal Medicine Geriatric Medicine
PROC: 05HD33Z Insertion of Infusion Device into Right Cephalic Vein, Percutaneous Approach (ICD-10-PCS; principal; 2023-09-06)
PROC: B54MZZA Ultrasonography of Right Upper Extremity Veins, Guidance (ICD-10-PCS; 2023-09-06)
DX: K40.30 Unilateral inguinal hernia, with obstruction, without gangrene, not specified as recurrent (principal); K56.600 Partial intestinal obstruction, unspecified as to cause; N39.0 Urinary tract infection, site not specified; K56.7 Ileus, unspecified; K56.41 Fecal impaction; I10 Essential (primary) hypertension; J45.909 Unspecified asthma, uncomplicated; E66.01 Morbid (severe) obesity due to excess calories; K57.30 Diverticulosis of large intestine without perforation or abscess without bleeding; N20.0 Calculus of kidney; E78.5 Hyperlipidemia, unspecified; Z87.440 Personal history of urinary (tract) infections; Z87.442 Personal history of urinary calculi; Z98.891 History of uterine scar from previous surgery; Z68.39 Body mass index [BMI] 39.0-39.9, adult; Z90.49 Acquired absence of other specified parts of digestive tract
CPT/HCPCS: 36415; 71045; 74176; 74250; 80048; 80053; 80061; 81001; 83735; 84443; 85025; 85610; 85730; 86803; 87086; 87088; 87186; 87340; 94640; 96365; G0378

== ENCOUNTER 2023-09-11 05:12 | Emergency (ER) | payer OTHER, MEDICAID ==
[~2023-09-11] VITALS: Ht 160 cm; Wt 94.5 kg
[~2023-09-11 05:12] MED LIST changes: -BENA-36 PO; +BUSP5TAB51 PO; +ENAL1TAB42 PO; +FAMO40TA7 PO; +GABA400C PO; -PRED20TA2 PO; +RALO60TA14 PO
[2023-09-11 05:17] VITALS: BP 142/67; PULSE 74; RESP 16; TEMP 99; O2SAT 98
[2023-09-11] MEDS: ONDANSETRON ODT 4 MG TAB PO ONE (06:28)
[2023-09-11] MEDS: HYDROcodone-ACET 5/325MG TAB PO ONE (06:29)
[2023-09-11] MEDS: methylPREDNISolone SOD SUCC 125 MG/2 ML VL IM ONE (06:29)
== END 2023-09-11 07:00 | disposition home or self-care (01) ==
LOC: ER 05:12
DX: M10.9 Gout, unspecified (principal); J45.909 Unspecified asthma, uncomplicated; E78.5 Hyperlipidemia, unspecified; I10 Essential (primary) hypertension; Z90.49 Acquired absence of other specified parts of digestive tract; Z87.442 Personal history of urinary calculi
CPT/HCPCS: 96372; 99283; J2930; Q0162

== ENCOUNTER → 2023-12-14 | Outpatient (CLI) | payer OTHER, MEDICAID ==
[~2023-12-14] MED LIST changes: +ALBUTEROL SULF 2.5 MG/0.5ML(0.5%) NEB SOLN ONE
== END | disposition home or self-care (01) ==
LOC: RT 10:00
PROVIDERS: ATTEND Internal Medicine Pulmonary Disease
DX: R06.02 Shortness of breath (principal); R06.09 Other forms of dyspnea; R05.9 Cough, unspecified
CPT/HCPCS: 94060; 94727; 94729

== ENCOUNTER 2024-05-05 12:07 | Emergency (ER) | payer OTHER, MEDICAID ==
[~2024-05-05] VITALS: Ht 154.9 cm; Wt 92.8 kg
[~2024-05-05 12:07] MED LIST changes: -ALBUTEROL SULF 2.5 MG/0.5ML(0.5%) NEB SOLN ONE
--- NOTE | 2024-05-05 13:05 | ED.PDOC ---
History of Present Illness HPI Comments 83 y.o female with PMH of asthma, HTN and hyperlipidemia, presents to the ED for a chief complaint of a productive cough and phlegm that started about 15 days ago. Patient reports recovering from flu like symptoms, felt better for 8 days after but recently cough has came back and states she is unable to spit phlegm out. Patient denies any fever, chills, chest pain, SOB. Patient has been seen by her PCP for this complaint but was told if symptoms persisted or worsened, to come into the ED for further workup. Time Seen by MD: 12:55 Primary Care Provider: Anish Reviewed Notes: Nurses Notes, Medications, Allergies Allergies: Coded Allergies: No Known Drug Allergy (Verified Allergy, Unknown, 11/04/20) Home Meds Active Scripts Azithromycin (Zithromax) 1 Gm Pow, 1 PACK PO ONCE, #1 PACK Prov:ROLAND TELLES MD 05/05/24 Lactulose (Lactulose) 10 Gm Pablo, 10 GM PO DAILY PRN, #240 PACK Prov:ALEXIS SAUNDERS MD 01/06/23 Reported Medications Gabapentin (Neurontin) 400 Mg Cap, 400 MG PO BID 09/06/23 Famotidine (Famotidine) 40 Mg Tab, 40 MG PO DAILY, TAB 09/06/23 Enalapril Maleate (Enalapril Maleate) 2.5 Mg Tab, 10 MG PO DAILY for 30 Days, MG 09/05/23 Buspirone Hcl (Buspirone Hcl) 5 Mg Tab, 5 MG PO Q12HR for 30 Days, MG 09/05/23 Raloxifene Hydrochloride (EVISTA TABLET) 60 Mg Tb, 1 TAB PO DAILY, #30 TAB 11 Refills 09/05/23 Cholecalciferol (VITAMIN D3) 2,000 Unit Tab, 1 TAB PO DAILY for SUPPLEMENT 11/04/20 Furosemide (Furosemide) 20 Mg Tab, 1 TAB PO QAM for PERIPHERAL EDEMA 11/04/20 Potassium Chloride (Klor-Con 8) 8 Meq Tab, 1 TAB PO DAILY for SUPPLEMENT 11/04/20 Atorvastatin Calcium (ATORVASTATIN CALCIUM) 40 Mg Tab, 1 TAB PO QPM for HIGH CHOLESTEROL 11/04/20 Aspirin (ASPIRIN 81) 81 Mg Tab, 1 TAB PO QAM for HEART ATTACK PREVENTION 11/04/20 Tiotropium Ruffin-Olodaterol (Stiolto Respimat 2.5-2.5 Mcg/Act) 1 Aer Aer, 2 PUFF INH QPM for ASTHMA 11/04/20 Amlodipine Besylate (NORVASC TABLET) 5 Mg Tb, 1 TAB PO QAM for HYPERTENSION 11/04/20 Information Source: Patient Mode of Arrival: Ambulatory Severity: Moderate Timing: Days (15) Duration: Since onset Past Medical History PAST MEDICAL HISTORY: Arthritis, Asthma, Gout, High Lipids, HTN, Kidney Stones, UTI'S Surgical History: Cholecystectomy, , Hernia Repair 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 Family History Family History: Unknown Social History Smoker: Non-Smoker Alcohol: Denies ETOH Use Drugs: Denies Drug Use Lives In: Home Constitutional: denies: chills, diaphoresis, fatigue, fever, malaise, sweats, weakness, others EENTM: denies: blurred vision, double vision, ear bleeding, ear discharge, ear drainage, ear pain, ear ringing, eye pain, eye redness, hearing loss, mouth pain, mouth swelling, nasal discharge, nose bleeding, nose congestion, nose pain, photophobia, tearing, throat pain, throat swelling, voice changes, others Respiratory: reports: cough; denies: hemoptysis, orthopnea, SOB at rest, shortness of breath, SOB with excertion, stridor, wheezing, others Cardiovascular: denies: chest pain, dizzy spells, diaphoresis, Dyspnea on exertion, edema, irregular heart beat, left arm pain, lightheadedness, palpitations, PND, syncope, others Gastrointestinal: denies: abdomen distended, abdominal pain, blood streaked bowels, constipated, diarrhea, dysphagia, difficulty swallowing, hematemesis, melena, nausea, poor appetite, poor fluid intake, rectal bleeding, rectal pain, vomiting, others Genitourinary: denies: abnormal vagina bleeding, burning, dyspareunia, dysuria, flank pain, frequency, hematuria, incontinence, pain, , vagina discharge, urgency, others Neurological: denies: dizziness, fainting, headache, left sided numbness, left sided weakness, numbness, paresthesia, pre-existing deficit, right sided numbness, right sided weakness, seizure, speech problems, tingling, tremors, weakness, others Musculoskeletal: denies: back pain, gout, joint pain, joint swelling, muscle pain, muscle stiffness, neck pain, others Integumetry: denies: bruises, change in color, change in hair/nails, dryness, laceration, lesions, lumps, rash, wounds, others Allergic/Immunocompromised: denies: Difficulty Healing, Frequent Infections, Hives, Itching, others Hematologic/Lymphatic: denies: anemia, blood clots, easy bleeding, easy bruising, swollen glands, others Endocrine: denies: excessive hunger, excessive sweating, excessive thirst, excessive urination, flushing, intolerance to cold, intolerance to heat, unexplained weight gain, unexplained weight loss, others Psychiatric: denies: anxiety, bipolar disorder, depression, hopeless, panic disorder, schizophrenia, sleepless, suicidal, others All Other Systems: Reviewed and Negative Physical Exam General Appearance: No Apparent Distress HEENT: Normal ENT Inspection, Pharynx Normal, TMs Normal Neck: Full Range of Motion, Non-Tender, Normal, Normal Inspection Respiratory: Chest Non-Tender, Lungs Clear, No Accessory Muscle Use, No Respiratory Distress, Normal Breath Sounds Cardiovascular: No Edema, No JVD, No Murmur, No Gallop, Normal Peripheral Pulses, Regular Rate/Rhythm Breast Exam: Deferred Gastrointestinal: No Organomegaly, Non Tender, No Pulsatile Mass, Normal Bowel Sounds, Soft Genitalia: Deferred Pelvic: Deferred Rectal: Deferred Extremities: No calf tenderness, Normal capillary refill, Normal inspection, Normal range of motion, Non-tender, No pedal edema Musculoskeletal : Apperance: Normal Neurologic: Alert, survey associate II-XII nml as Tested, No Motor Deficits, Normal Affect, Normal Mood, No Sensory Deficits Cerebellar Function: Normal Reflexes: Normal Skin: Dry, Normal Color, Warm Lymphatic: No Adenopathy Was a procedure done? Was a procedure done?: No Differential Dx Considerations may include: Influenza, URI, Bronchitis, asthma, pneumonia X-Ray, Labs, Meds, VS Vital Signs Date Time Temp Pulse Resp B/P (MAP) Pulse Ox O2 Delivery O2 Flow Rate FiO2 05/05/24 16:32 97.0 55 18 188/65 (106) 97 97.0 05/05/24 13:51 98.3 62 18 155/68 (97) 96 Lab Test 05/05/24 15:24 Range/Units Influenza Type A Antigen Negative Negative Influenza Type B Antigen Negative Negative SARS-CoV-2 Antigen (Rapid) Negative NEGATIVE The influenza a, influenza B and COVID test are negative Images Reviewed?: Images reviewed and evaluated by me Time of 1ST Reevaluation: 13:02 Reevaluation 1ST: Unchanged Patient Education/Counseling: Diagnosis, Treatment, Prognosis, Need For Follow Up Family Education/Counseling: Diagnosis, Treatment, Prognosis, Need For Follow U p Departure 1 Departure Time of Disposition: 17:27 Impression: Primary Impression: Acute bronchitis Qualified Codes: J20.9 - Acute bronchitis, unspecified Disposition: 01 HOME / SELF CARE / HOMELESS Condition: Fair e-Prescriptions Azithromycin (Zithromax) 1 Gm Pow 1 PACK PO ONCE, #1 PACK Prov: ROLAND TELLES MD 05/05/24 Discharged With: Self Critical Care Note Critical Care Time?: No Stability Stability form required: No I personally scribed for ROLAND TELLES MD ([email or web address]) on 05/05/24 at 13:05. Electronically submitted by Laura He ([facility]). ROLAND TELLES MD May 05, 2024 13:05
--- NOTE | 2024-05-05 13:57 | DVH ---
CHEST RADIOGRAPH Indication:cough Technique: Frontal and lateral view of the chest was obtained Comparison: CHEST TWO VIEWS ROUTINE on DOS: 11/04/20 FINDINGS: Lines and Tubes: None Lungs: Clear Pleura: No effusion. No pneumothorax. Cardiomediastinal contours: Vascular calcifications of the aorta Bones: Unremarkable IMPRESSION: No evidence of acute disease.
[2024-05-05 16:32] VITALS: BP 188/65; PULSE 55; RESP 18; TEMP 97; O2SAT 97
[2024-05-05 17:06] LABS: COVID19 ANTIGEN SOFIA FIA NEGATIVE (NEGATIVE); Rapid Influenza A Negative (Negative); Rapid Influenza B Negative (Negative)
[2024-05-05] MEDS ORDERED: AZIT1POW PO (17:26)
== END 2024-05-05 17:43 | disposition home or self-care (01) ==
LOC: ER 12:07
DX: J20.9 Acute bronchitis, unspecified (principal); J45.909 Unspecified asthma, uncomplicated; E78.5 Hyperlipidemia, unspecified; I10 Essential (primary) hypertension; M19.90 Unspecified osteoarthritis, unspecified site; Z79.899 Other long term (current) drug therapy; Z87.440 Personal history of urinary (tract) infections; Z90.49 Acquired absence of other specified parts of digestive tract; Z98.890 Other specified postprocedural states; Z20.822 Contact with and (suspected) exposure to COVID-19
CPT/HCPCS: 36415; 71046; 87426; 87804

== ENCOUNTER 2024-09-05 18:15 | Inpatient (IN) | payer OTHER, MEDICAID ==
[~2024-09-05] VITALS: Ht 154.9 cm; Wt 94.9 kg
[~2024-09-05 18:15] MED LIST changes: +AZIT1POW PO
[2024-09-05 19:07] LABS: Urine Bacteria None Seen /hpf (None Seen)
--- NOTE | 2024-09-05 19:08 | ED.PDOC ---
History of Present Illness HPI Comments 83 year old female accompanied by daughter presents to the ED with chief complaint of back pain. Patient reports that she has been experiencing bilateral lower back pain that radiates down her legs for the past few days. Patient relays that she was normally able to walk on her own with a cane, however, now s he has been in too much pain and too weak to walk on her own. Daughter states that besides the back pain, the patient has been experiencing a lingering cough, congestion, chills, and poor appetite for months. Patient notes she is worried she may have cancer. Patient denies any dysuria, N/V/D, chest pain, SOB, dizziness, headache, or fever. Chief Complaint: Back Pain Time Seen by MD: 19:02 Primary Care Provider: RHIANNON Reviewed Notes: Nurses Notes, Medications, Allergies Allergies: Coded Allergies: No Known Drug Allergy (Verified Allergy, Unknown, 11/04/20) Home Meds Active Scripts Azithromycin (Zithromax) 1 Gm Pow, 1 PACK PO ONCE, #1 PACK Prov:ROLAND TELLES MD 05/05/24 Lactulose (Lactulose) 10 Gm Pablo, 10 GM PO DAILY PRN, #240 PACK Prov:ALEXIS SAUNDERS MD 01/06/23 Reported Medications Gabapentin (Neurontin) 400 Mg Cap, 400 MG PO BID 09/06/23 Famotidine (Famotidine) 40 Mg Tab, 40 MG PO DAILY, TAB 09/06/23 Enalapril Maleate (Enalapril Maleate) 2.5 Mg Tab, 10 MG PO DAILY for 30 Days, MG 09/05/23 Buspirone Hcl (Buspirone Hcl) 5 Mg Tab, 5 MG PO Q12HR for 30 Days, MG 09/05/23 Raloxifene Hydrochloride (EVISTA TABLET) 60 Mg Tb, 1 TAB PO DAILY, #30 TAB 11 Refills 09/05/23 Cholecalciferol (VITAMIN D3) 2,000 Unit Tab, 1 TAB PO DAILY for SUPPLEMENT 11/04/20 Furosemide (Furosemide) 20 Mg Tab, 1 TAB PO QAM for PERIPHERAL EDEMA 11/04/20 Potassium Chloride (Klor-Con 8) 8 Meq Tab, 1 TAB PO DAILY for SUPPLEMENT 11/04/20 Atorvastatin Calcium (ATORVASTATIN CALCIUM) 40 Mg Tab, 1 TAB PO QPM for HIGH CHOLESTEROL 11/04/20 Aspirin (ASPIRIN 81) 81 Mg Tab, 1 TAB PO QAM for HEART ATTACK PREVENTION 11/04/20 Tiotropium Compton-Olodaterol (Stiolto Respimat 2.5-2.5 Mcg/Act) 1 Aer Aer, 2 PUFF INH QPM for ASTHMA 11/04/20 Amlodipine Besylate (NORVASC TABLET) 5 Mg Tb, 1 TAB PO QAM for HYPERTENSION 11/04/20 Information Source: Patient, Relative (Daughter) Mode of Arrival: Ambulatory Severity: Moderate Timing: Days Duration: Since onset Prehospital treatment: None Past Medical History PAST MEDICAL HISTORY: Anxiety, Arthritis, Asthma, Cancer, DM, Gout, High Lipids, HTN, Kidney Stones, UTI'S Past Medical History (Other): Cardiomegaly Surgical History: Cholecystectomy, , Hernia Repair 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 Family History Family History: Reviewed,noncontributory to illness, Unknown Social History Smoker: Non-Smoker Alcohol: Denies ETOH Use Drugs: Denies Drug Use Lives In: Home Constitutional: reports: chills, weakness; denies: diaphoresis, fatigue, fever, malaise, sweats, others EENTM: denies: blurred vision, double vision, ear bleeding, ear discharge, ear drainage, ear pain, ear ringing, eye pain, eye redness, hearing loss, mouth pain, mouth swelling, nasal discharge, nose bleeding, nose congestion, nose pain, photophobia, tearing, throat pain, throat swelling, voice changes, others Respiratory: reports: cough; denies: hemoptysis, orthopnea, SOB at rest, shortness of breath, SOB with excertion, stridor, wheezing, others Cardiovascular: denies: chest pain, dizzy spells, diaphoresis, Dyspnea on exertion, edema, irregular heart beat, left arm pain, lightheadedness, palpitations, PND, syncope, others Gastrointestinal: reports: poor appetite; denies: abdomen distended, abdominal pain, blood streaked bowels, constipated, diarrhea, dysphagia, difficulty swallowing, hematemesis, melena, nausea, poor fluid intake, rectal bleeding, rectal pain, vomiting, others Genitourinary: denies: abnormal vagina bleeding, burning, dyspareunia, dysuria, flank pain, frequency, hematuria, incontinence, pain, , vagina discharge, urgency, others Neurological: denies: dizziness, fainting, headache, left sided numbness, left sided weakness, numbness, paresthesia, pre-existing deficit, right sided numbness, right sided weakness, seizure, speech problems, tingling, tremors, weakness, others Musculoskeletal: reports: back pain, others (Leg pain); denies: gout, joint pain, joint swelling, muscle pain, muscle stiffness, neck pain Integumetry: denies: bruises, change in color, change in hair/nails, dryness, laceration, lesions, lumps, rash, wounds, others Allergic/Immunocompromised: denies: Difficulty Healing, Frequent Infections, Hives, Itching, others Hematologic/Lymphatic: denies: anemia, blood clots, easy bleeding, easy bruising, swollen glands, others Endocrine: denies: excessive hunger, excessive sweating, excessive thirst, excessive urination, flushing, intolerance to cold, intolerance to heat, unexplained weight gain, unexplained weight loss, others Psychiatric: denies: anxiety, bipolar disorder, depression, hopeless, panic disorder, schizophrenia, sleepless, suicidal, others All Other Systems: Reviewed and Negative Physical Exam General Appearance: Moderate Distress HEENT: Normal ENT Inspection, Pharynx Normal, TMs Normal Neck: Full Range of Motion, Non-Tender, Normal, Normal Inspection Respiratory: Chest Non-Tender, Lungs Clear, No Accessory Muscle Use, No Respiratory Distress, Normal Breath Sounds Cardiovascular: No Edema, No JVD, No Murmur, No Gallop, Normal Peripheral Pulses, Regular Rate/Rhythm Breast Exam: Deferred Gastrointestinal: No Organomegaly, Non Tender, No Pulsatile Mass, Normal Bowel Sounds, Soft Genitalia: Deferred Pelvic: Deferred Rectal: Deferred Extremities: No calf tenderness, Normal capillary refill, No pedal edema Musculoskeletal : Apperance: Normal Neurologic: Alert, respiratory equipment assistant II-XII nml as Tested, Motor Weakness, Normal Affect, Normal Mood, No Sensory Deficits Cerebellar Function: Normal Reflexes: Normal Skin: Dry, Normal Color, Warm Lymphatic: No Adenopathy Was a procedure done? Was a procedure done?: No Differential Dx Considerations may include: Generalized weakness, electrolyte imbalance, UTI, bowel obstruction X-Ray, Labs, Meds, VS Vital Signs Date Time Temp Pulse Resp B/P (MAP) Pulse Ox O2 Delivery O2 Flow Rate FiO2 09/05/24 18:37 98.8 88 21 152/62 (92) 96 Lab Test 09/05/24 19:16 09/05/24 18:37 Range/Units White Blood Count 9.4 4.4-10.8 10^3/uL Red Blood Count 4.80 4.0-5.20 10^6/uL Hemoglobin 14.7 12.2-16.2 g/dL Hematocrit 44.2 36.0-46.0 % Mean Corpuscular Volume 92.2 80.0-100.0 fL Mean Corpuscular Hemoglobin 30.7 28.0-32.0 pg Mean Corpuscular Hemoglobin Concent 33.3 32.0-36.0 g/dL Red Cell Distribution Width 13.7 11.8-14.3 % Platelet Count 230 140-450 10^3/uL Mean Platelet Volume 9.8 6.9-10.8 fL Neutrophils (%) (Auto) 58.6 37.0-80.0 % Lymphocytes (%) (Auto) 28.3 10.0-50.0 % Monocytes (%) (Auto) 9.9 0.0-12.0 % Eosinophils (%) (Auto) 2.3 0.0-7.0 % Basophils (%) (Auto) 0.9 0.0-2.0 % Neutrophils # (Auto) 5.5 1.6-8.6 10 ^3/uL Lymphocytes # (Auto) 2.6 0.4-5.4 10 ^3/uL Monocytes # (Auto) 0.9 0-1.3 10 ^3/uL Eosinophils # (Auto) 0.2 0-0.8 10 ^3/uL Basophils # (Auto) 0.1 0-0.2 10 ^3/uL Nucleated Red Blood Cells 0.0 % Sodium Level 139 136-145 mmol/L Potassium Level 4.3 3.5-5.1 mmol/L Chloride Level 105 98-107 mmol/L Carbon Dioxide Level 27 20-31 mmol/L Anion Gap 7 5-15 Blood Urea Nitrogen 18 9-23 mg/dL Creatinine 0.81 0.550-1.02 mg/dL Glomerular Filtration Rate Calc 72 >90 mL/min BUN/Creatinine Ratio 22.2 H 10.0-20.0 Serum Glucose 97 74-106 mg/dL Calcium Level 10.3 8.7-10.4 mg/dL Total Bilirubin 0.7 0.2-1.0 mg/dL Aspartate Amino Transferase (AST) 19 13-40 U/L Alanine Aminotransferase (ALT) 15 7-40 U/L Alkaline Phosphatase 72 46-116 U/L Total Protein 7.3 5.7-8.2 g/dL Albumin 4.5 3.2-4.8 g/dL Lipase 26 12-53 U/L Urine Color Light-yellow Yellow Urine Clarity Clear Clear Urine pH 5.5 5.0-9.0 Urine Specific Regent 1.016 1.001-1.035 Urine Protein Negative Negative Urine Ketones Trace Negative Urine Blood Negative Negative /uL Urine Nitrite Negative Negative Urine Bilirubin Negative Negative Urine Urobilinogen Normal Negative mg/dL Urine Leukocyte Esterase 1+ Negative /uL Urine RBC 1 0 - 4 /hpf Urine Microscopic WBC 15 H 0-5 /HPF Urine Squamous Epithelial Cells Few <5 /hpf Urine Bacteria None seen None Seen /hpf Urine Glucose Normal Normal mg/dL CT scan of the abdomen and pelvis shows: Impression: 1. No acute abdominopelvic abnormalities. 2. Diverticulosis without evidence of acute diverticulitis. 3. Punctate nonobstructive right nephrolithiasis. The urine test is positive for UTI The patient's CBC is within normal limits The chemistry panel is within normal limits The patient is given Rocephin 1 g IV piggyback An IV Hep-Lock was established Images Reviewed?: Images reviewed and evaluated by me Time of 1ST Reevaluation: 20:03 Reevaluation 1ST: Unchanged Patient Education/Counseling: Diagnosis, Treatment, Prognosis Family Education/Counseling: Diagnosis, Treatment, Prognosis Additional Information -Reviewed patient's previous visit(s): 05/05/24 for bronchitis - The following tests were ordered, and results were reviewed by me: CT Abd/Pel, CBC, CMP, UA, Lipase - Additional information was gathered from interviewing the following independent Historian: daughter - I reviewed and agreed with the following test results read by other provider: CT Abd/Pel - I discussed treatments and results with medical personnel and: patient and daughter Comprehensive systems review obtained and negative except for what is stated in the HPI. Departure 1 Departure Time of Disposition: 20:03 Impression: Primary Impression: Intractable abdominal pain Additional Impression: UTI (urinary tract infection) Qualified Codes: N30.00 - Acute cystitis without hematuria Disposition: ADMITTED INPATIENT Admit to: [facility] Surg Condition: Fair Critical Care Note Critical Care Time?: No Stability Stability form required: Yes Unstable for transfer: ED Physician Assesment (Clinical assesment) Heart Score Heart Score: Heart Score Response (Comments) Value History N/A 0 EKG N/A 0 Age N/A 0 Risk Factors N/A 0 Troponin N/A 0 Total 0 I personally scribed for ROLAND TELLES MD ([email or web address]) on 09/05/24 at 19:08. Electronically submitted by Kareem Juarez ([email or web address]). ROLAND TELLES MD Sep 05, 2024 19:08
[2024-09-05 19:16] LABS: Urine Blood Negative /uL (Negative); Urine Clarity Clear (Clear); Urine Color Light-Yellow (Yellow); Urine Protein, UAD Negative (Negative); Urine Specific Gravity 1.016 (1.001-1.035); Urine Squamous Epithelial Cell FEW /hpf (<5); Urine Urobilinogen Normal (Negative); Urine WBC 15 /HPF (0-5); Urine pH 5.5 (5.0-9.0)
[2024-09-05 19:38] LABS: Basophils # (auto) 0.1 10 ^3/uL (0-0.2); Basophils % (auto) 0.9 % (0.0-2.0); Eosinophils # (auto) 0.2 10 ^3/uL (0-0.8); Eosinophils % (auto) 2.3 % (0.0-7.0); Hematocrit 44.2 % (36.0-46.0); Hemoglobin 14.7 g/dL (12.2-16.2); Lymphocytes # (auto) 2.6 10 ^3/uL (0.4-5.4); Lymphocytes % (auto) 28.3 % (10.0-50.0); Mean Corpuscular Hemoglobin 30.7 pg (28.0-32.0); Mean Corpuscular Hgb Conc. 33.3 g/dL (32.0-36.0); Mean Corpuscular Volume 92.2 fL (80.0-100.0); Monocytes # (auto) 0.9 10 ^3/uL (0-1.3); Monocytes % (auto) 9.9 % (0.0-12.0); Neutrophils # (auto) 5.5 10 ^3/uL (1.6-8.6); Neutrophils % (auto) 58.6 % (37.0-80.0); Platelet Count (auto) 230 10^3/uL (140-450); Red Cell Distribution Width 13.7 % (11.8-14.3); White Blood Cell 9.4 10^3/uL (4.4-10.8)
[2024-09-05 19:53] LABS: Alanine Aminotransferase 15 U/L (7-40); Albumin 4.5 g/dL (3.2-4.8); Alkaline Phosphatase 72 U/L (46-116); Anion Gap 7 (5-15); Aspartate Aminotransferase 19 U/L (13-40); BUN/Creatinine Ratio 22.2 (10.0-20.0); Blood Urea Nitrogen 18 mg/dL (9-23); Calcium 10.3 mg/dL (8.7-10.4); Carbon Dioxide 27 mmol/L (20-31); Chloride 105 mmol/L (98-107); Glucose 97 mg/dL (74-106); Lipase 26 U/L (12-53); Potassium 4.3 mmol/L (3.5-5.1); Sodium 139 mmol/L (136-145); Total Protein 7.3 g/dL (5.7-8.2)
[2024-09-05 19:54] LABS: Bilirubin, Total 0.7 mg/dL (0.2-1.0)
--- NOTE | 2024-09-05 19:58 | DVH ---
Exam: CT CT AB PEL WO CON-NO ORAL OR IV History: weakness Comparison Study: CT CT AB PEL WO CON-NO ORAL OR IV on DOS: 09/04/23 TECHNIQUE: Multidetector CT of the abdomen and pelvis was performed from lung bases to pubic symphysi s. Imaging was performed without IV contrast. Axial, coronal, and sagittal multiplanar reformats were obtained from the axial data set by the technologist. RADIATION DOSE: DLP 1149.79 mGy.cm; CTDI vol 22.54 mGy. Findings: Lungs: The lung bases are clear. Heart: No cardiomegaly or pericardial effusion. Liver: Unremarkable. Gallbladder: Cholecystectomy. Spleen: Unremarkable Pancreas: Unremarkable Adrenals: Unremarkable Kidneys: Punctate nonobstructive right nephrolithiasis. GI tract: Diverticulosis without evidence of acute diverticulitis. : Unremarkable. Vasculature: Mild aortoiliac atherosclerosis. Lymphadenopathy: Absent Peritoneum: No ascites Musculoskeletal: Moderate multilevel degenerative changes of the thoracolumbar spine Soft tissues: Moderate right fat containing inguinal hernia. Impression: 1. No acute abdominopelvic abnormalities. 2. Diverticulosis without evidence of acute diverticulitis. 3. Punctate nonobstructive right nephrolithiasis.
[2024-09-05] MEDS: RALOXIFENE HCL 60 MG TAB PO ONE (21:45)
[2024-09-05] MEDS: ASPirin 81 mg TAB PO ONE (21:45)
[2024-09-05] MEDS ORDERED: ACETAMINOPHEN 325 MG TAB PO PRN (21:45)
[2024-09-05] MEDS: ENOXAPARIN SOD 40 MG/0.4 ML SYRINGE SC ONE (21:45)
[2024-09-05] MEDS: ENALAPRIL MALEATE 10 MG TAB PO ONE (21:45)
[2024-09-05] MEDS: SODIUM CHLORIDE 0.9% 500 ML IV ONE (21:45)
[2024-09-05] MEDS: OXYBUTYNIN CHL 5 MG TAB PO ONE (21:45)
--- NOTE | 2024-09-05 21:50 | DVHHPRES ---
History of Present Illness Resident Creating Document: FERNANDA JONES RESDIENT History of Present Illness + this is an 83-year-old female with past medical history of anxiety, osteoarthritis, asthma, cancer (possible cervical cancer), prediabetic, gout, dyslipidemia, hypertension came to the hospital due to lower back and bilateral lower limb pain. She also reports fever, chills, decreased appetite, cough, shortness of breaths and constipation. Due to bilateral knee pain secondary to osteoarthritis the patient was previously using cane but recently has been wheelchair-bound. Due to previous history of cancer, the patient afraid of having cancer. PMHx: anxiety, osteoarthritis, asthma, cancer (possible cervical cancer), prediabetic, gout, dyslipidemia, hypertension PSHx: Cholecystectomy, and hernia repair Family history: Noncontributory Social history: Lives with the family at home, denies smoking or any other drug use, uses wheelchair for mobility Home medication: Raloxifene, enalapril, oxybutynin, and multivitamins Allergic history: No known allergy Review of Systems Review of Systems General: Reports fever and chill HEENT: No headaches, visiual changes, hearing loss, tinnitus, nasal congestion and discharge, and sore throat. Cardiovascular: Denies chest pain, palpitations, dyspnea on exertion, orthopnea, or claudication. Respiratory: Reports cough and congestion Gastrointestinal: Denies nausea, vomiting, dysphagia, odynophagia, heartburn, abdominal pain, flatulence, bloating, diarrhea, constipation, change in stool, or blood in stool. Genitourinary: No dysuria, hematuria, discharge, frequency, urgency, nocturia, incontinence, and urinary retention. Endocrine: No heat or cold intolerance, polydipsia, polyuria, and polyphagia. Neurological: No dizziness, extremity weakness and numbness, tremors, gait disturbance, seizures, and memory impairment. Psychiatric: Denies depression, anxiety,or insomnia. Musculoskeletal: Reports lower back and bilateral lower limb pain Skin: No rashes, itching, skin lesion, changes in hair, nail, skin texture and breast. Hematologic/Lymphatic: Denies easy bruising, bleeding tendencies, or lymph node enlargement. Allergies: Coded Allergies: No Known Drug Allergy (Verified Allergy, Unknown, 11/04/20) Exam Vital Signs Vital Signs Date Time Temp Pulse Resp B/P (MAP) Pulse Ox O2 Delivery O2 Flow Rate FiO2 09/05/24 18:37 98.8 88 21 152/62 (92) 96 Exam General Appearance: Alert, Oriented X3, Cooperative, No acute distress HEENT: Atraumatic, PERRLA, EOMI, Mucous membrane moist/pink Respiratory: Clear to auscultation, Normal air movement Cardiovascular: Regular rate, Normal S1, Normal S2, No murmurs, no chest wall tenderness Abdominal: Mild suprapubic tenderness Extremities: Bilateral knee joint tenderness with restricted range of motion due to pain Skin: No rashes, No breakdown, No significant lesion Neuro: Normal gait, Normal speech, Strength at 5/5 X4 ext, Normal tone, Sensation intact, Cranial nerves 3-12 NL, Reflexes 2+ Psych/Mental Status: Mental status NL, Mood NL Labs/Xrays Labs Test 09/05/24 19:16 09/05/24 18:37 Range/Units White Blood Count 9.4 4.4-10.8 10^3/uL Red Blood Count 4.80 4.0-5.20 10^6/uL Hemoglobin 14.7 12.2-16.2 g/dL Hematocrit 44.2 36.0-46.0 % Mean Corpuscular Volume 92.2 80.0-100.0 fL Mean Corpuscular Hemoglobin 30.7 28.0-32.0 pg Mean Corpuscular Hemoglobin Concent 33.3 32.0-36.0 g/dL Red Cell Distribution Width 13.7 11.8-14.3 % Platelet Count 230 140-450 10^3/uL Mean Platelet Volume 9.8 6.9-10.8 fL Neutrophils (%) (Auto) 58.6 37.0-80.0 % Lymphocytes (%) (Auto) 28.3 10.0-50.0 % Monocytes (%) (Auto) 9.9 0.0-12.0 % Eosinophils (%) (Auto) 2.3 0.0-7.0 % Basophils (%) (Auto) 0.9 0.0-2.0 % Neutrophils # (Auto) 5.5 1.6-8.6 10 ^3/uL Lymphocytes # (Auto) 2.6 0.4-5.4 10 ^3/uL Monocytes # (Auto) 0.9 0-1.3 10 ^3/uL Eosinophils # (Auto) 0.2 0-0.8 10 ^3/uL Basophils # (Auto) 0.1 0-0.2 10 ^3/uL Nucleated Red Blood Cells 0.0 % Sodium Level 139 136-145 mmol/L Potassium Level 4.3 3.5-5.1 mmol/L Chloride Level 105 98-107 mmol/L Carbon Dioxide Level 27 20-31 mmol/L Anion Gap 7 5-15 Blood Urea Nitrogen 18 9-23 mg/dL Creatinine 0.81 0.550-1.02 mg/dL Glomerular Filtration Rate Calc 72 >90 mL/min BUN/Creatinine Ratio 22.2 H 10.0-20.0 Serum Glucose 97 74-106 mg/dL Calcium Level 10.3 8.7-10.4 mg/dL Total Bilirubin 0.7 0.2-1.0 mg/dL Aspartate Amino Transferase (AST) 19 13-40 U/L Alanine Aminotransferase (ALT) 15 7-40 U/L Alkaline Phosphatase 72 46-116 U/L Total Protein 7.3 5.7-8.2 g/dL Albumin 4.5 3.2-4.8 g/dL Lipase 26 12-53 U/L Urine Color Light-yellow Yellow Urine Clarity Clear Clear Urine pH 5.5 5.0-9.0 Urine Specific [place] 1.016 1.001-1.035 Urine Protein Negative Negative Urine Ketones Trace Negative Urine Blood Negative Negative /uL Urine Nitrite Negative Negative Urine Bilirubin Negative Negative Urine Urobilinogen Normal Negative mg/dL Urine Leukocyte Esterase 1+ Negative /uL Urine RBC 1 0 - 4 /hpf Urine Microscopic WBC 15 H 0-5 /HPF Urine Squamous Epithelial Cells Few <5 /hpf Urine Bacteria None seen None Seen /hpf Urine Glucose Normal Normal mg/dL Assessment/Plan Assessment/Plan Complicated UTI UA shows UTI picture Urine culture Empiric antibiotic, ceftriaxone IV fluid Acetaminophen History of cervical cancer Osteoarthritis Asthma Diabetes Gout Dyslipidemia Hypertension Continue home medicine DIET: Cardiac diet DVT PROPHYLAXIS: Lovenox BOWEL REGIMEN: Colace CODE STATUS: Goal of care discussed for more than 18 minutes, full code DISPOSITION: Med/surge Patient's status and paln discussed with the patient and the patient's granddaughter at the bedside. Case discussed with Dr. Pineda Plan discussed with: Patient, Other (RN) My Orders Orders - HEWADMAL,HEWAD RESDIENT Procedure Category Date Status Time Admit ADMIT 09/05/24 Transmitted 21:41 Stat Ekg For Chest SYLVIA 09/05/24 In Process Pain 21:41 Notify Md Of Changes SYLVIA 09/05/24 In Process From Base 21:41 Date of Service: Sep 05, 2024 Billing Provider: MANI PINEDA MD Common Visit Codes: [id number] INP/OBS CARE (HIGH) Secondary Visit Codes: [id number] CARE PLAN 30 MINUTES FERNANDA JONES RESDIENT Sep 05, 2024 21:49 MANI PINEDA MD Sep 06, 2024 17:44
[2024-09-05] MEDS: OXYBUTYNIN CHL 5 MG TAB PO SCH (22:00)
[2024-09-06 00:07] LABS: Barbiturate Scree,Urine Neg (NEGATIVE); Benzodiazephine Screen, Urine Neg (NEGATIVE); Opiate Scree,Urine Neg (NEGATIVE)
[2024-09-06 00:08] LABS: Amphetamine Screen, Urine Neg (NEGATIVE); Cannabinoid Screen, Urine Neg (NEGATIVE); Cocaine Screen, Urine Neg (NEGATIVE); Phencyclidine Screen, Urine Neg (NEGATIVE)
[2024-09-06] MEDS: cefTRIAXone 1GM/50ML D5W 50 ML IV ONE (00:19)
[2024-09-06 05:00] VITALS: PULSE 64; RESP 16; O2SAT 98
[2024-09-06] MEDS: PANTOPRAZOLE 40 MG TAB PO SCH (05:31)
[2024-09-06] MEDS: IBUPROFEN 400 MG TAB PO PRN (05:31)
[2024-09-06 07:24] LABS: Alanine Aminotransferase 11 U/L (7-40); Alkaline Phosphatase 61 U/L (46-116); Anion Gap 8 (5-15); Aspartate Aminotransferase 13 U/L (13-40); BUN/Creatinine Ratio 22.4 (10.0-20.0); Bilirubin, Total 0.6 mg/dL (0.2-1.0); Blood Urea Nitrogen 17 mg/dL (9-23); Calcium 9.7 mg/dL (8.7-10.4); Carbon Dioxide 26 mmol/L (20-31); Chloride 105 mmol/L (98-107); Glucose 98 mg/dL (74-106); Potassium 4.5 mmol/L (3.5-5.1); Sodium 139 mmol/L (136-145); Total Protein 6.4 g/dL (5.7-8.2)
[2024-09-06 07:29] LABS: Basophils # (auto) 0.1 10 ^3/uL (0-0.2); Basophils % (auto) 0.9 % (0.0-2.0); Eosinophils # (auto) 0.2 10 ^3/uL (0-0.8); Eosinophils % (auto) 2.5 % (0.0-7.0); Hematocrit 39.6 % (36.0-46.0); Hemoglobin 13.4 g/dL (12.2-16.2); Lymphocytes # (auto) 2.4 10 ^3/uL (0.4-5.4); Lymphocytes % (auto) 26.2 % (10.0-50.0); Mean Corpuscular Hemoglobin 31.1 pg (28.0-32.0); Mean Corpuscular Hgb Conc. 33.9 g/dL (32.0-36.0); Mean Corpuscular Volume 91.8 fL (80.0-100.0); Monocytes # (auto) 0.9 10 ^3/uL (0-1.3); Monocytes % (auto) 10.5 % (0.0-12.0); Neutrophils # (auto) 5.4 10 ^3/uL (1.6-8.6); Neutrophils % (auto) 59.9 % (37.0-80.0); Platelet Count (auto) 210 10^3/uL (140-450); Red Blood Cells 4.31 10^6/uL (4.0-5.20); Red Cell Distribution Width 13.5 % (11.8-14.3)
--- NOTE | 2024-09-06 07:45 | DVH ---
EXAM: XR Chest, 1 View CLINICAL INDICATION: pna TECHNIQUE: Frontal view of the chest. COMPARISON: XY CHEST XRAY 1 VIEW on DOS: 09/06/23, XY CHEST PORTABLE on DOS: 01/02/23, XY CHEST PORTAB LE on DOS: 01/01/23, CHEST XRAY 1 VIEW on DOS: 11/12/20 FINDINGS: LUNGS AND PLEURAL SPACES: Pulmonary venous congestion. No consolidation. No pneumothorax. HEART: Unremarkable. No cardiomegaly. MEDIASTINUM: Unremarkable. Normal mediastinal contour. BONES/JOINTS: Unremarkable. No acute fracture. OTHER FINDINGS: . IMPRESSION: Pulmonary venous congestion.
[2024-09-06 08:00] VITALS: PULSE 68; RESP 13; O2SAT 95
[2024-09-06 08:32] LABS: Rapid Influenza A Negative (Negative); Rapid Influenza B Negative (Negative)
[2024-09-06 08:34] LABS: COVID19 ANTIGEN SOFIA FIA NEGATIVE (NEGATIVE)
--- NOTE | 2024-09-06 08:38 | DVH ---
INDICATION: hx of Thickened endometrium measuring up to 17 mm. TECHNIQUE: Multiple real-time grayscale transabdominal sonographic images along with color and duplex Doppler of the uterus and ovaries were obtained. COMPARISON: None FINDINGS: Visualization of the pelvic structures due to obscuration from bowel gas. The uterus measures 5.9 x 3.2 x 2.1 cm. The endometrial stripe is not well visualized due to obscurat ion from bowel gas. Bilateral ovaries are not well visualized due to obscuration from bowel gas. IMPRESSION: Evaluation is limited due to exam obscuration from bowel gas. Bilateral ovaries not visualized. Lurdes l sonographic appearance of the uterus. Endometrium not well visualized due to obscuration from bowel gas.
[2024-09-06] MEDS: cefTRIAXone 1GM/50ML D5W 50 ML IV SCH (09:08)
[2024-09-06] MEDS: RALOXIFENE HCL 60 MG TAB PO SCH (10:17)
[2024-09-06] MEDS: ENALAPRIL MALEATE 10 MG TAB PO SCH (10:18)
[2024-09-06] MEDS: POLYETHYLENE GLYCOL 17 GM PWDR PO ONE (10:19)
[2024-09-06] MEDS: ASPirin 81 mg TAB PO SCH (10:19)
[2024-09-06] MEDS: ENOXAPARIN SOD 40 MG/0.4 ML SYRINGE SC SCH (10:20)
--- NOTE | 2024-09-06 12:53 | DVH ---
EXAM: CT LS SPINE WO CONTRAST HISTORY: midline tenderness, positive R slr test COMPARISON: None CTDIvol 38.22 mGy, DLP 1134.71 mGy*cm. TECHNIQUE: Multiple axial CT images of the spine were obtained using bone algorithm. Axial and coron al reformatting was done. Bone and soft tissue windows were reviewed. FINDINGS: No CT evidence of definite acute fracture, spinal dislocation, or significant appearing acute subluxa tion is seen. The visualized paraspinal soft tissues are grossly unremarkable. Diffuse osteopenia. Gr rima 1 anterolisthesis of L5 on S1. Multilevel degenerative changes of the spine with multilevel degenerative disc osteophyte hypertrophy most prominent at L4-L5 and L5-S1. There is suggestion of moderate canal stenosis at L3-L4 and L4-L5 . IMPRESSION: No definite CT evidence of acute fracture or dislocation of the bony lumbar spine.
--- NOTE | 2024-09-06 14:57 | DVHPNRES ---
Progress Note Date Seen: Sep 06, 2024 Resident Creating Document: HERI REGALADO RESIDENT Medical Necessity Reason Pt with a Central, PICC or Fol: No Subjective Review of Systems Mirna Pink is a [place]an-speaking 83 year old female with past medical history of hypertension, dyslipidemia, prediabetes, gout, osteoarthritis, asthma, ? Cervical cancer who presented to the ER with a chief complaint of lower back pain and bilateral posterior thigh pain for the past month. Per daughter present at bedside, patient was ambulatory a month back, but now she is less because of the pain in her back and bilateral hips and thighs. Reports that the pain is worsening with time, but denies any fever or chills, headache or urinary or bowel incontinence. The patient has a PCP who she saw 3 months back. On examination, patient had lumbar spinal midline tenderness positive straight leg test on the right side. CT lumbar spine without contrast completed showed No CT evidence of definite acute fracture, spinal dislocation, or significant appearing acute subluxation is seen. The visualized paraspinal soft tissues are grossly unremarkable. Diffuse osteopenia. Grade 1 anterolisthesis of L5 on S1. Multilevel degenerative changes of the spine with multilevel degenerative disc osteophyte hypertrophy most prominent at L4-L5 and L5-S1. There is suggestion of moderate canal stenosis at L3-L4 and L4-L5. Past medical history: See above Surgical history: , hernia repair, cholecystectomy Social history: Lives with daughter, denies smoking or drug use. Home medication: Raloxifene, enalapril, oxybutynin, and multivitamins Patient seen and examined in the ER. Daughter at bedside. Physical therapy consulted. Objective vital signs Vital Sign Date Time Temp Pulse Resp B/P (MAP) Pulse Ox O2 Delivery O2 Flow Rate FiO2 09/06/24 13:35 Room Air* 0 21 09/06/24 12:00 68 09/06/24 12:00 97.8 21 139/55 (83) 94 97.8 Total Intake and Output 09/05/24 09/05/24 09/06/24 15:00 23:00 07:00 Intake Total 550 ml Balance 550 ml medications Current Medications Medications Dose Ordered Sig/Rodney Route Start Time Stop Time Status Last Admin Dose Admin Ceftriaxone Sodium 50 ml @ 100 mls/hr DAILY@09 IV 09/06/24 09:00 09/06/24 09:08 100 MLS/HR Enalapril Maleate 10 mg DAILY PO 09/06/24 10:00 09/06/24 10:18 10 MG Raloxifene HCl 60 mg DAILY PO 09/06/24 10:00 09/06/24 10:17 60 MG Acetaminophen 650 mg Q4HP PRN PO 09/05/24 21:45 Ibuprofen 400 mg Q8HP PRN PO 09/05/24 21:45 09/06/24 05:31 400 MG Enoxaparin Sodium 40 mg DAILY SC 09/06/24 10:00 09/06/24 10:20 40 MG Pantoprazole Sodium 40 mg DAILY@0600 PO 09/06/24 06:00 09/06/24 05:31 40 MG Aspirin 81 mg DAILY PO 09/06/24 10:00 09/06/24 10:19 81 MG Oxybutynin Chloride 5 mg Q12HR PO 09/05/24 22:00 09/06/24 10:19 5 MG Examination Patient lying in bed, in no acute distress General: Well-built, afebrile, palor, mucosae are moist Cardiovascular: Regular S1 and S2. No murmurs, gallops or rubs. No JVD elevation. 1+ pitting edema Respiratory: Normal B/L air entry on room air. Bilateral crackles on lower base on auscultation Abdomen: Soft, nontender, nondistended, normoactive bowel sounds, no rebound tenderness, no organomegaly, no masses Genitourinary: Deferred MSK/skin: Mobilizes 4 limbs. Skin is dry and warm. Positive straight leg test on the right side that 60 degree. Midline lumbar spinal tenderness. Neurological: No motor, no sensitive deficits, normal speech. Pupils are isocoric and reactive. Psych/Mental Status: A/Ox3 laboratory and microbiology Laboratory Tests 09/06/24 06:43 Test 09/06/24 06:43 Range/Units Serum Glucose 98 74-106 mg/dL Labs and/or images reviewed: Labs reviewed by me, Image(s) reviewed by me Problem List/Assessment/Plan Problem List/Assessment/Plan Chronic lower back pain with positive straight leg test Diffuse osteopenia Degenerative disc disease L4-L5-S1 Spinal canal stenosis L3-L4-L5 CT lumbar spine, showed Diffuse osteopenia. Grade 1 anterolisthesis of L5 on S1. Multilevel degenerative changes of the spine with multilevel degenerative disc osteophyte hypertrophy most prominent at L4-L5 and L5-S1. There is suggestion of moderate canal stenosis at L3-L4 and L4-L5. Physical therapy consulted Continue home medication raloxifene 60 mg daily Acute cystitis IV ceftriaxone starting 09/05 Hypertension Continue home medication enalapril 10 mg daily History of asthma-controlled Albuterol nebulized treatment q.6 hour ?Diabetes mellitus type 2-hemoglobin A1c pending Plan discussed with patient and daughter at the bedside in which all questions have been answered Goals of care discussed with patient for more than 22 minutes, full code status Case discussed with Dr. Preez Plan discussed with: Patient My Orders My Orders Orders - HERI REGALADO Procedure Category Date Status Time Chest Xray 1 View XY 09/06/24 Resulted 07:21 Vitamin D, 25-Hydroxy LAB 09/07/24 Verified 04:00 Vitamin B12 LAB 09/07/24 Verified 04:00 Thyroid Stimulating LAB 09/07/24 Verified Hormone 04:00 PTPTT LAB 09/07/24 Verified 04:00 Pelvic US 09/06/24 Resulted 07:28 Ls Spine Wo Contrast CT 09/06/24 Resulted 09:41 Pt Request For Service PT 09/06/24 Logged 11:53 Date of Service: Sep 06, 2024 Billing Provider: JELANI PEREZ MD Common Visit Codes: [id number] INP/OBS CARE(HIGH) HERI REGALADO RESIDENT Sep 06, 2024 14:57 JELANI PEREZ MD Sep 06, 2024 21:16
[2024-09-06] MEDS ORDERED: ALBUTEROL SULF 2.5 MG/0.5ML(0.5%) NEB SOLN NEB SCH (15:15)
[2024-09-06] MEDS: DOCUSATE SOD 100 MG CAP PO ONE (16:21)
[2024-09-06 17:07] VITALS: BP 126/49; PULSE 64; RESP 21; TEMP 98.1; O2SAT 95
[2024-09-06 19:30] VITALS: PULSE 60; RESP 14; O2SAT 99
[2024-09-06] MEDS: ALBUTEROL SULF 2.5 MG/0.5ML(0.5%) NEB SOLN NEB SCH (19:30)
[2024-09-06 19:36] VITALS: PULSE 58; RESP 14; O2SAT 100
[2024-09-06 21:00] VITALS: BP 150/44; PULSE 62; RESP 18; TEMP 97.7; O2SAT 97
[2024-09-06] MEDS: DOCUSATE SOD 100 MG CAP PO SCH (22:59)
[2024-09-07] VITALS (12 sets, daily range): BP systolic 108–134; BP diastolic 39–67; PULSE 53–78; RESP 16–20; TEMP 97.9–98.4; O2SAT 94–100
[2024-09-07] MEDS ORDERED: ENAL1TAB46 PO (02:46)
[2024-09-07 09:11] LABS: Basophils # (auto) 0.1 10 ^3/uL (0-0.2); Basophils % (auto) 0.9 % (0.0-2.0); Eosinophils # (auto) 0.2 10 ^3/uL (0-0.8); Eosinophils % (auto) 3.2 % (0.0-7.0); Hemoglobin 13.7 g/dL (12.2-16.2); Lymphocytes # (auto) 2.2 10 ^3/uL (0.4-5.4); Mean Corpuscular Hemoglobin 31.1 pg (28.0-32.0); Mean Corpuscular Hgb Conc. 34.1 g/dL (32.0-36.0); Monocytes # (auto) 0.7 10 ^3/uL (0-1.3); Monocytes % (auto) 9.9 % (0.0-12.0); Platelet Count (auto) 239 10^3/uL (140-450); Red Cell Distribution Width 13.5 % (11.8-14.3); White Blood Cell 7.3 10^3/uL (4.4-10.8)
[2024-09-07 09:31] LABS: Chloride 104 mmol/L (98-107); Potassium 4.2 mmol/L (3.5-5.1); Sodium 139 mmol/L (136-145)
[2024-09-07 09:32] LABS: Anion Gap 6 (5-15); Calcium 9.7 mg/dL (8.7-10.4); Carbon Dioxide 29 mmol/L (20-31)
[2024-09-07 09:35] LABS: INR 0.95 (0.9-1.15); Partial Thromboplastin Time 26.7 SEC (24.5-34.5); Prothrombin Time 10.1 sec (9.3-11.8)
[2024-09-07 09:37] LABS: BUN/Creatinine Ratio 13.3 (10.0-20.0); Blood Urea Nitrogen 10 mg/dL (9-23); Glucose 106 mg/dL (74-106)
--- NOTE | 2024-09-07 10:45 | DVHINCON2 ---
Consultation - Spinal Surgery Date Seen: Sep 07, 2024 Referring Physician Referring Physician Attending Doctor: Milton Gerard Resident Resident Creating Document: FERNANDA JONES RESPAVANDAVID Reason for Consultation Intractable lower back and hip pain rating dating to the thighs History of Present Illness History of Present Illness History of Present Illness + this is an 83-year-old female with past medical history of anxiety, osteoarthritis, asthma, cancer (possible cervical cancer), prediabetic, gout, dyslipidemia, hypertension came to the hospital due to lower back and bilateral lower limb pain. She also reports fever, chills, decreased appetite, cough, shortness of breaths and constipation. Due to bilateral knee pain secondary to osteoarthritis the patient was previously using cane but recently has been wheelchair-bound. Due to previous history of cancer, the patient afraid of having cancer. Past Medical/Surgical History Past Medical/Surgical History PMHx: anxiety, osteoarthritis, asthma, cancer (possible cervical cancer), prediabetic, gout, dyslipidemia, hypertension PSHx: Cholecystectomy, and hernia repair Family and Social History Family and Social History Family history: Noncontributory Social history: Lives with the family at home, denies smoking or any other drug use, uses wheelchair for mobility Home medication: Raloxifene, enalapril, oxybutynin, and multivitamins Allergic history: No known allergy Allergies and medications Allergies: Coded Allergies: No Known Drug Allergy (Verified Allergy, Unknown, 11/04/20) Home Meds Active Scripts Azithromycin (Zithromax) 1 Gm Pow, 1 PACK PO ONCE, #1 PACK Prov:ROLAND TELLES MD 05/05/24 Lactulose (Lactulose) 10 Gm Pablo, 10 GM PO DAILY PRN, #240 PACK Prov:ALEXIS SAUNDERS MD 01/06/23 Reported Medications Enalapril Maleate (VASOTEC TABLET) 10 Mg Tb, 1 TAB PO BID, #30 TAB 5 Refills 09/07/24 Gabapentin (Neurontin) 400 Mg Cap, 400 MG PO BID 09/06/23 Famotidine (Famotidine) 40 Mg Tab, 40 MG PO DAILY, TAB 09/06/23 Buspirone Hcl (Buspirone Hcl) 5 Mg Tab, 5 MG PO Q12HR for 30 Days, MG 09/05/23 Raloxifene Hydrochloride (EVISTA TABLET) 60 Mg Tb, 1 TAB PO DAILY, #30 TAB 11 Refills 09/05/23 Cholecalciferol (VITAMIN D3) 2,000 Unit Tab, 1 TAB PO DAILY for SUPPLEMENT 11/04/20 Furosemide (Furosemide) 20 Mg Tab, 1 TAB PO QAM for PERIPHERAL EDEMA 11/04/20 Potassium Chloride (Klor-Con 8) 8 Meq Tab, 1 TAB PO DAILY for SUPPLEMENT 11/04/20 Atorvastatin Calcium (ATORVASTATIN CALCIUM) 40 Mg Tab, 1 TAB PO QPM for HIGH CHOLESTEROL 11/04/20 Aspirin (ASPIRIN 81) 81 Mg Tab, 1 TAB PO QAM for HEART ATTACK PREVENTION 11/04/20 Tiotropium [place]-Olodaterol (Stiolto Respimat 2.5-2.5 Mcg/Act) 1 Aer Aer, 2 PUFF INH QPM for ASTHMA 11/04/20 Amlodipine Besylate (NORVASC TABLET) 5 Mg Tb, 1 TAB PO QAM for HYPERTENSION 11/04/20 Review of systems Review of Systems: HEENT:Normal, CVS:Abnormal, RESPIRATORY:Abnormal, GI:Normal, :Normal, MSK:Abnormal (Low back pain), NEURO:Normal Examination Vital signs PROCEDURE: MRI LUMBAR SPINE WO CONTRAST INDICATION: moderate canal stenosis at L3-L4 and L4-L5 Exam Date: 09/07/2024 02:47 PM COMPARISON: CT scan of the lumbar spine dated 09/06/2024. TECHNIQUE: MRI lumbar spine without intravenous contrast. FINDINGS: No vertebral body fractures are identified about the lumbar spine. There is bilateral L5 spondylolysis with grade 2 anterolisthesis L5 on S1 measuring 11 mm AP. The conus terminates at L1-L2. L1-L2: No significant discopathy, spinal canal stenosis, or neural foraminal stenosis bilaterally. There is mild bilateral facet hypertrophy. L2-L3: There is a mild circumferential broad disc bulge. There is bilateral facet and ligamentum flavum hypertrophy. No significant spinal canal stenosis. There is mild bilateral neural foraminal stenosis. L3-L4: There is grade 1 anterolisthesis L3 on L4 measuring 3 mm AP without evidence of spondylolysis. There is disc desiccation without loss of disc height. There is a circumferential broad disc bulge, most prominent in the foraminal regions. There is bilateral facet and ligamentum flavum hypertrophy, with fluid intensity in the bilateral facets. The AP dimension of the spinal canal measures 7 mm. There is mild bilateral neural foraminal stenosis. L4-L5: There is grade 1 anterolisthesis L4 on L5 measuring 4 mm AP, without evidence of spondylolysis. There is disc desiccation without loss of disc height. There is a circumferential broad disc bulge with endplate hypertrophy. Probable central disc annulus tear without focal disc herniation. There is bilateral facet and ligamentum flavum hypertrophy, with fluid intensity in the bilateral facets. No significant spinal canal stenosis. There is mild right and moderate left neural foraminal stenosis. L5-S1: There is grade 2 anterolisthesis L5 on S1 measuring 11 mm AP, with bilateral L5 spondylolysis. There is disc desiccation with loss of disc height. There are irregularities of the adjacent endplates. There is a circumferential broad disc bulge with endplate hypertrophy, most prominent in the foraminal regions. The AP dimension of the spinal canal measures 9 mm. There is moderate to severe bilateral neural foraminal stenosis. IMPRESSION: 1. No vertebral body fracture of the lumbar spine. 2. 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 There is also grade 1 anterolisthesis L3 on L4 and L4 on L5 without evidence of spondylolysis at those levels. 3. Degenerative disc disease and facet arthropathy with loda-en-yantxino spinal canal stenosis at L3-L4. No significant spinal canal stenosis is identified at any other level in the lumbar spine. 4. Significant neural foraminal stenosis on the left at L4-L5 and bilaterally at L5-S1. These findings May correspond to lower extremity radicular symptoms in the left L4 and bilateral L5 nerve root distributions. Imaging EXAM: CT LS SPINE WO CONTRAST HISTORY: midline tenderness, positive R slr test COMPARISON: None CTDIvol 38.22 mGy, DLP 1134.71 mGy*cm. TECHNIQUE: Multiple axial CT images of the spine were obtained using bone algorithm. Axial and coronal reformatting was done. Bone and soft tissue windows were reviewed. FINDINGS: No CT evidence of definite acute fracture, spinal dislocation, or significant appearing acute subluxation is seen. The visualized paraspinal soft tissues are grossly unremarkable. Diffuse osteopenia. Grade 1 anterolisthesis of L5 on S1. Multilevel degenerative changes of the spine with multilevel degenerative disc osteophyte hypertrophy most prominent at L4-L5 and L5-S1. There is suggestion of moderate canal stenosis at L3-L4 and L4-L5. IMPRESSION: No definite CT evidence of acute fracture or dislocation of the bony lumbar spine. Vital Signs Date Time Temp Pulse Resp B/P (MAP) Pulse Ox O2 Delivery O2 Flow Rate FiO2 09/07/24 10:05 118/67 09/07/24 09:00 98.1 62 16 95 98.1 09/07/24 08:00 Room Air* 0 21 Medications Current Medications Medications (Trade) Dose Ordered Sig/Rodney Route PRN Reason Start Time Stop Time Status Last Admin Albuterol (Ventolin Medneb) 2.[address] [facility] 09/06/24 15:15 09/06/24 15:16 DC Docusate Sodium (Colace Capsule) 100 mg BID PO 09/06/24 22:00 09/07/24 10:03 Albuterol (Ventolin Medneb) 2.[address] [facility] 09/06/24 18:00 09/07/24 07:37 Laboratory Labs Test 09/07/24 08:50 09/06/24 07:54 09/06/24 06:43 09/05/24 19:16 Range/Units White Blood Count 7.3 4.4-10.8 10^3/uL Red Blood Count 4.40 4.0-5.20 10^6/uL Hemoglobin 13.7 12.2-16.2 g/dL Hematocrit 40.0 36.0-46.0 % Mean Corpuscular Volume 91.0 80.0-100.0 fL Mean Corpuscular Hemoglobin 31.1 28.0-32.0 pg Mean Corpuscular Hemoglobin Concent 34.1 32.0-36.0 g/dL Red Cell Distribution Width 13.5 11.8-14.3 % Platelet Count 239 140-450 10^3/uL Mean Platelet Volume 9.3 6.9-10.8 fL Neutrophils (%) (Auto) 55.0 37.0-80.0 % Lymphocytes (%) (Auto) 31.0 10.0-50.0 % Monocytes (%) (Auto) 9.9 0.0-12.0 % Eosinophils (%) (Auto) 3.2 0.0-7.0 % Basophils (%) (Auto) 0.9 0.0-2.0 % Neutrophils # (Auto) 4.0 1.6-8.6 10 ^3/uL Lymphocytes # (Auto) 2.2 0.4-5.4 10 ^3/uL Monocytes # (Auto) 0.7 0-1.3 10 ^3/uL Eosinophils # (Auto) 0.2 0-0.8 10 ^3/uL Basophils # (Auto) 0.1 0-0.2 10 ^3/uL Nucleated Red Blood Cells 0.0 % Prothrombin Time 10.1 9.3-11.8 sec Prothrombin Time INR 0.95 0.9-1.15 Activated Partial Thromboplast Time 26.7 24.5-34.5 SEC Sodium Level 139 136-145 mmol/L Potassium Level 4.2 3.5-5.1 mmol/L Chloride Level 104 98-107 mmol/L Carbon Dioxide Level 29 20-31 mmol/L Anion Gap 6 5-15 Blood Urea Nitrogen 10 9-23 mg/dL Creatinine 0.75 0.550-1.02 mg/dL Glomerular Filtration Rate Calc 78 >90 mL/min BUN/Creatinine Ratio 13.3 10.0-20.0 Serum Glucose 106 74-106 mg/dL Hemoglobin A1c 5.4 <5.7 % A1C Calcium Level 9.7 8.7-10.4 mg/dL Influenza Type A Antigen Negative Negative Influenza Type B Antigen Negative Negative SARS-CoV-2 Antigen (Rapid) Negative NEGATIVE Magnesium Level 2.0 1.6-2.6 mg/dL Total Bilirubin 0.6 0.2-1.0 mg/dL Aspartate Amino Transferase (AST) 13 13-40 U/L Alanine Aminotransferase (ALT) 11 7-40 U/L Alkaline Phosphatase 61 46-116 U/L Troponin I High Sensitivity 4 </=34 ng/L B-Type Natriuretic Peptide 55.07 0-100 pg/mL Total Protein 6.4 5.7-8.2 g/dL Albumin 4.0 3.2-4.8 g/dL Lipase 26 12-53 U/L Test 09/05/24 18:37 Range/Units Urine Color Light-yellow Yellow Urine Clarity Clear Clear Urine pH 5.5 5.0-9.0 Urine Specific [place] 1.016 1.001-1.035 Urine Protein Negative Negative Urine Ketones Trace Negative Urine Blood Negative Negative /uL Urine Nitrite Negative Negative Urine Bilirubin Negative Negative Urine Urobilinogen Normal Negative mg/dL Urine Leukocyte Esterase 1+ Negative /uL Urine RBC 1 0 - 4 /hpf Urine Microscopic WBC 15 H 0-5 /HPF Urine Squamous Epithelial Cells Few <5 /hpf Urine Bacteria None seen None Seen /hpf Urine Glucose Normal Normal mg/dL Urine Opiates Screen Neg NEGATIVE Urine Fentanyl Screen Neg NEGATIVE Urine Barbiturates Screen Neg NEGATIVE Urine Phencyclidine Screen Neg NEGATIVE Urine Amphetamines Screen Neg NEGATIVE Urine Benzodiazepines Screen Neg NEGATIVE Urine Cocaine Screen Neg NEGATIVE Urine Cannabinoids Screen Neg NEGATIVE Microbiology Date/Time Source Procedure Growth Status 09/05/24 18:37 Voided Urine Urine Culture - Preliminary Resulted Examination: GENERAL:Normal, HEENT:Normal, NECK:Normal, LUNGS:Normal (No distress noted today), CVS:Abnormal, ABDOMEN:Normal, MSK:Normal (Patient states that the pain when she stands up his improved with her muscle relaxer), SKIN:Normal, NEURO:Normal (Patient states that she is able to get up and move a round better after receiving her muscle relaxers.) Problem List/Assessment/Plan Problems: (1) Lumbar stenosis with neurogenic claudication (2) Muscle spasm of back Assessment and Plan moderate canal stenosis at L3-L4 and L4-L5 found on CT > plan to order a MRI of the lumbar spine without contrast further spine recommendations will be given after the radiology study is complete Further care and management per admitting team's discretion PT evaluation and treatment recommendations If patient is complaining of muscle spasms recommend muscle relaxers Addendum 09/08/2024 after reviewing MRI 1. 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 There is also grade 1 anterolisthesis L3 on L4 and L4 on L5 without evidence of spondylolysis at those levels. 2. Degenerative disc disease and facet arthropathy with iyel-on-mxgfjbew spinal canal stenosis at L3-L4. No significant spinal canal stenosis is identified at any other level in the lumbar spine. 3. Significant neural foraminal stenosis on the left at L4-L5 and bilaterally at L5-S1. These findings May correspond to lower extremity radicular symptoms in the left L4 and bilateral L5 nerve root distributions. After speaking with the patient using drafting supervisor [id number] drafting supervisor his name is Keya patient must discuss any surgical options with her family. Patient is stating that after getting her muscle relaxer she feels that she is getting around and moving much better than yesterday. She states the pain with standing has improved. Spine recommends physical therapy and continue muscle relaxers. In light of the patient's improvement she may be discharged with outpatient follow-up. Call [phone] for a appointment with Dr. Genaro Aranda [address] [place] [address], [place] [id number] Call with questions Lorenzo Weeks [facility] Orthopaedic Spine Surgery nurse practitioner For Dr Makeda Morton Patient was examined, chart reviewed, labs evaluated, and diagnostic studies and findings analyzed. Case was discussed with Dr. Genaro Morton who formulated the plan of care. This medical document was created using an electronic medical record system with [employer] dictation system. Although this document has been carefully reviewed, there might still be some phonetic and typographical errors. These areas are purely typographical due to imperfections of the software programs, and do not reflect any compromise in the patient's medical care. Plan discussed with Plan discussed with: Patient, Other (Jonel DEL VALLE) RICARDO WEEKS NP Sep 07, 2024 10:45
[2024-09-07] MEDS: POLYETHYLENE GLYCOL 17 GM PWDR PO ONE (11:40)
--- NOTE | 2024-09-07 12:24 | DVHPNRES ---
Progress Note Date Seen: Sep 07, 2024 Resident Creating Document: HERI REGALADO RESIDENT Medical Necessity Reason Pt with a Central, PICC or Fol: No Subjective Review of Systems Mirna Pink is a Slovak-speaking 83 year old female with past medical history of hypertension, dyslipidemia, prediabetes, gout, osteoarthritis, asthma, ? Cervical cancer who presented to the ER with a chief complaint of lower back pain and bilateral posterior thigh pain for the past month. Per daughter present at bedside, patient was ambulatory a month back, but now she is less because of the pain in her back and bilateral hips and thighs. Reports that the pain is worsening with time, but denies any fever or chills, headache or urinary or bowel incontinence. The patient has a PCP who she saw 3 months back. On examination, patient had lumbar spinal midline tenderness positive straight leg test on the right side. CT lumbar spine without contrast completed showed No CT evidence of definite acute fracture, spinal dislocation, or significant appearing acute subluxation is seen. The visualized paraspinal soft tissues are grossly unremarkable. Diffuse osteopenia. Grade 1 anterolisthesis of L5 on S1. Multilevel degenerative changes of the spine with multilevel degenerative disc osteophyte hypertrophy most prominent at L4-L5 and L5-S1. There is suggestion of moderate canal stenosis at L3-L4 and L4-L5. Past medical history: See above Surgical history: , hernia repair, cholecystectomy Social history: Lives with daughter, denies smoking or drug use. Home medication: Raloxifene, enalapril, oxybutynin, and multivitamins 09/06-Patient seen and examined in the ER. Daughter at bedside. Physical therapy consulted. 09/07 - patient seen and examined at the bedside. Reports feeling better. Panel surgeon consulted given the CT scan lumber findings of spinal stenosis, recommended MRI without contrast of the lumbar spine. Started Flexeril 10 mg TID. Objective vital signs Vital Sign Date Time Temp Pulse Resp B/P (MAP) Pulse Ox O2 Delivery O2 Flow Rate FiO2 09/07/24 11:40 61 18 100 09/07/24 11:34 Room Air* 0 21 09/07/24 10:05 118/67 09/07/24 09:00 98.1 98.1 Total Intake and Output 09/06/24 09/06/24 09/07/24 15:00 23:00 07:00 Intake Total 50 ml 300 ml 100 ml Output Total 2 ml 4 ml Balance 50 ml 298 ml 96 ml medications Current Medications Medications Dose Ordered Sig/Rodney Route Start Time Stop Time Status Last Admin Dose Admin Ceftriaxone Sodium 50 ml @ 100 mls/hr DAILY@09 IV 09/06/24 09:00 09/07/24 10:08 100 MLS/HR Enalapril Maleate 10 mg DAILY PO 09/06/24 10:00 09/07/24 10:05 10 MG Raloxifene HCl 60 mg DAILY PO 09/06/24 10:00 09/07/24 10:07 60 MG Acetaminophen 650 mg Q4HP PRN PO 09/05/24 21:45 Ibuprofen 400 mg Q8HP PRN PO 09/05/24 21:45 09/06/24 05:31 400 MG Enoxaparin Sodium 40 mg DAILY SC 09/06/24 10:00 09/07/24 10:08 40 MG Pantoprazole Sodium 40 mg DAILY@0600 PO 09/06/24 06:00 09/07/24 06:40 40 MG Aspirin 81 mg DAILY PO 09/06/24 10:00 09/07/24 10:04 81 MG Oxybutynin Chloride 5 mg Q12HR PO 09/05/24 22:00 09/07/24 10:03 5 MG Docusate Sodium 100 mg BID PO 09/06/24 22:00 09/07/24 10:03 100 MG Albuterol 2.5 mg Q6HWA NEB 09/06/24 18:00 09/07/24 11:34 2.5 MG Cyclobenzaprine HCl 10 mg Q8HPRN PO 09/07/24 14:00 UNV Examination Examination Patient lying in bed, in no acute distress General: Well-built, afebrile, palor, mucosae are moist Cardiovascular: Regular S1 and S2. No murmurs, gallops or rubs. No JVD elevation. 1+ pitting edema Respiratory: Normal B/L air entry on room air. Bilateral crackles on lower base on auscultation Abdomen: Soft, nontender, nondistended, normoactive bowel sounds, no rebound tenderness, no organomegaly, no masses Genitourinary: Deferred MSK/skin: Mobilizes 4 limbs. Skin is dry and warm. Positive straight leg test on the right side that 60 degree. Midline lumbar spinal tenderness. Neurological: No motor, no sensitive deficits, normal speech. Pupils are isocoric and reactive. Psych/Mental Status: A/Ox laboratory and microbiology Laboratory Tests 09/07/24 08:50 Test 09/07/24 08:50 Range/Units Serum Glucose 106 74-106 mg/dL Microbiology Date/Time Source Procedure Growth Status 09/05/24 18:37 Voided Urine Urine Culture - Preliminary Resulted Labs and/or images reviewed: Labs reviewed by me, Image(s) reviewed by me Problem List/Assessment/Plan Problem List/Assessment/Plan 09/07 - patient seen and examined at the bedside. Reports feeling better. Panel surgeon consulted given the CT scan lumber findings of spinal stenosis, recommended MRI without contrast of the lumbar spine. Started Flexeril 10 mg TID. Chronic lower back pain with positive straight leg test Diffuse osteopenia Degenerative disc disease L4-L5-S1 Spinal canal stenosis L3-L4-L5 CT lumbar spine, showed Diffuse osteopenia. Grade 1 anterolisthesis of L5 on S1. Multilevel degenerative changes of the spine with multilevel degenerative disc osteophyte hypertrophy most prominent at L4-L5 and L5-S1. There is suggestion of moderate canal stenosis at L3-L4 and L4-L5. Physical therapy consulted Continue home medication raloxifene 60 mg daily Spinal surgeon consulted-recommended MRI lumbar spine without contrast Started Flexeril 10 mg TID Acute cystitis IV ceftriaxone starting 09/05 Hypertension Continue home medication enalapril 10 mg daily History of asthma-controlled Albuterol nebulized treatment q.6 hour Plan discussed with patient and daughter at the bedside in which all questions have been answered Goals of care discussed with patient for more than 22 minutes, full code status Case discussed with Dr. Perez Plan discussed with: Patient, Daughter My Orders My Orders Orders - HERI REGALADO Procedure Category Date Status Time Docusate Sodium PHA 09/06/24 In Process Capsule (Colace 22:00 Albuterol Medneb PHA 09/06/24 In Process (Ventolin Medneb) 18:00 ConsultdrDominique Lam CONS 09/07/24 Transmitted [place](Spine) 10:40 Lumbar Spine Wo MRI 09/07/24 Logged Contrast 10:42 Cyclobenzaprine PHA 09/07/24 Pending Tablet (Flexeril 14:00 Date of Service: Sep 07, 2024 Billing Provider: JELANI PEREZ MD Common Visit Codes: [id number] INP/OBS CARE(HIGH) HERI REGALADO RESIDENT Sep 07, 2024 12:24 JELANI PEREZ MD Sep 07, 2024 22:27
[2024-09-07] MEDS: ERGOCALCIFEROL 50,000 UNIT(1.25MG) CAP PO SCH (13:09)
[2024-09-07] MEDS: CYCLOBENZAPRINE HCL 10 MG TAB PO ONE (13:09)
[2024-09-07] MEDS: LORazepam 2MG/ML-1ML VIAL IV ONE (13:10)
[2024-09-07] MEDS ORDERED: CYCLOBENZAPRINE HCL 10 MG TAB PO PRN (14:00)
--- NOTE | 2024-09-07 16:12 | DVH ---
PROCEDURE: MRI LUMBAR SPINE WO CONTRAST INDICATION: moderate canal stenosis at L3-L4 and L4-L5 Exam Date: 09/07/2024 02:47 PM COMPARISON: CT scan of the lumbar spine dated 09/06/2024. TECHNIQUE: MRI lumbar spine without intravenous contrast. FINDINGS: No vertebral body fractures are identified about the lumbar spine. There is bilateral L5 spondylolysi s with grade 2 anterolisthesis L5 on S1 measuring 11 mm AP. The conus terminates at L1-L2. L1-L2: No significant discopathy, spinal canal stenosis, or neural foraminal stenosis bilaterally. Th ere is mild bilateral facet hypertrophy. L2-L3: There is a mild circumferential broad disc bulge. There is bilateral facet and ligamentum flav um hypertrophy. No significant spinal canal stenosis. There is mild bilateral neural foraminal steno sis. L3-L4: There is grade 1 anterolisthesis L3 on L4 measuring 3 mm AP without evidence of spondylolysis. There is disc desiccation without loss of disc height. There is a circumferential broad disc bulge, most prominent in the foraminal regions. There is bilateral facet and ligamentum flavum hypertrophy, with fluid intensity in the bilateral facets. The AP dimension of the spinal canal measures 7 mm. T here is mild bilateral neural foraminal stenosis. L4-L5: There is grade 1 anterolisthesis L4 on L5 measuring 4 mm AP, without evidence of spondylolysis . There is disc desiccation without loss of disc height. There is a circumferential broad disc bulge with endplate hypertrophy. Probable central disc annulus tear without focal disc herniation. There i s bilateral facet and ligamentum flavum hypertrophy, with fluid intensity in the bilateral facets. No significant spinal canal stenosis. There is mild right and moderate left neural foraminal stenosis. L5-S1: There is grade 2 anterolisthesis L5 on S1 measuring 11 mm AP, with bilateral L5 spondylolysis. There is disc desiccation with loss of disc height. There are irregularities of the adjacent endplat es. There is a circumferential broad disc bulge with endplate hypertrophy, most prominent in the fora rogers regions. The AP dimension of the spinal canal measures 9 mm. There is moderate to severe bilate ral neural foraminal stenosis. IMPRESSION: 1. No vertebral body fracture of the lumbar spine. 2. 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 There is also grade 1 anterolist hesis L3 on L4 and L4 on L5 without evidence of spondylolysis at those levels. 3. Degenerative disc disease and facet arthropathy with [id number] spinal canal stenosis at L3- L4. No significant spinal canal stenosis is identified at any other level in the lumbar spine. 4. Significant neural foraminal stenosis on the left at L4-L5 and bilaterally at L5-S1. These findin gs May correspond to lower extremity radicular symptoms in the left L4 and bilateral L5 nerve root di stributions.
[2024-09-08] VITALS (13 sets, daily range): BP systolic 105–151; BP diastolic 37–70; PULSE 60–94; RESP 16–20; TEMP 97.3–98.6; O2SAT 92–99
--- NOTE | 2024-09-08 12:00 | DVH ---
Date: 09/08/2024 10:46 AM Examination: XY KUB ABDOMEN SINGLE VIEW History: sbo Comparison: None TECHNIQUE: Frontal views of the abdomen was obtained. FINDINGS: Bowel gas pattern is unremarkable. The lung bases are unremarkable. No acute osseous abnormality identified. IMPRESSION: Nonobstructive bowel gas pattern. Large stool burden.
--- NOTE | 2024-09-08 14:21 | DVHPNRES ---
Progress Note Date Seen: Sep 08, 2024 Resident Creating Document: HERI REGALADO RESIDENT Medical Necessity Reason Pt with a Central, PICC or Fol: No Subjective Review of Systems Mirna Pink is a Greek-speaking 83 year old female with past medical history of hypertension, dyslipidemia, prediabetes, gout, osteoarthritis, asthma, ? Cervical cancer who presented to the ER with a chief complaint of lower back pain and bilateral posterior thigh pain for the past month. Per daughter present at bedside, patient was ambulatory a month back, but now she is less because of the pain in her back and bilateral hips and thighs. Reports that the pain is worsening with time, but denies any fever or chills, headache or urinary or bowel incontinence. The patient has a PCP who she saw 3 months back. On examination, patient had lumbar spinal midline tenderness positive straight leg test on the right side. CT lumbar spine without contrast completed showed No CT evidence of definite acute fracture, spinal dislocation, or significant appearing acute subluxation is seen. The visualized paraspinal soft tissues are grossly unremarkable. Diffuse osteopenia. Grade 1 anterolisthesis of L5 on S1. Multilevel degenerative changes of the spine with multilevel degenerative disc osteophyte hypertrophy most prominent at L4-L5 and L5-S1. There is suggestion of moderate canal stenosis at L3-L4 and L4-L5. Past medical history: See above Surgical history: , hernia repair, cholecystectomy Social history: Lives with daughter, denies smoking or drug use. Home medication: Raloxifene, enalapril, oxybutynin, and multivitamins 09/06-Patient seen and examined in the ER. Daughter at bedside. Physical therapy consulted. 09/07 - patient seen and examined at the bedside. Reports feeling better. Panel surgeon consulted given the CT scan lumber findings of spinal stenosis, recommended MRI without contrast of the lumbar spine. Started Flexeril 10 mg TID. 09/08 - patient seen and examined at the bedside. Spinal Surgeon recommends outpatient follow up, last bowel movement 4 days. Magnesium citrate administered. X-ray KUB showed large stool burden. Objective vital signs Vital Sign Date Time Temp Pulse Resp B/P (MAP) Pulse Ox O2 Delivery O2 Flow Rate FiO2 09/08/24 12:07 61 18 97 09/08/24 12:00 Room Air* 0 21 09/08/24 10:23 132/53 09/08/24 09:00 98.1 98.1 Total Intake and Output 09/07/24 09/07/24 09/08/24 15:00 23:00 07:00 Intake Total 50 ml 450 ml 75 ml Balance 50 ml 450 ml 75 ml medications Current Medications Medications Dose Ordered Sig/Rodney Route Start Time Stop Time Status Last Admin Dose Admin Ceftriaxone Sodium 50 ml @ 100 mls/hr DAILY@09 IV 09/06/24 09:00 09/08/24 10:25 100 MLS/HR Enalapril Maleate 10 mg DAILY PO 09/06/24 10:00 09/08/24 10:23 10 MG Raloxifene HCl 60 mg DAILY PO 09/06/24 10:00 09/08/24 10:31 60 MG Acetaminophen 650 mg Q4HP PRN PO 09/05/24 21:45 Ibuprofen 400 mg Q8HP PRN PO 09/05/24 21:45 09/06/24 05:31 400 MG Enoxaparin Sodium 40 mg DAILY SC 09/06/24 10:00 09/08/24 10:24 40 MG Pantoprazole Sodium 40 mg DAILY@0600 PO 09/06/24 06:00 09/08/24 05:58 40 MG Aspirin 81 mg DAILY PO 09/06/24 10:00 09/08/24 10:25 81 MG Oxybutynin Chloride 5 mg Q12HR PO 09/05/24 22:00 09/08/24 10:22 5 MG Docusate Sodium 100 mg BID PO 09/06/24 22:00 09/08/24 10:22 100 MG Albuterol 2.5 mg Q6HWA NEB 09/06/24 18:00 09/08/24 12:00 2.5 MG Cyclobenzaprine HCl 10 mg Q8HPRN PRN PO 09/07/24 14:00 Ergocalciferol 50,000 unit Q7D PO 09/07/24 12:30 09/07/24 13:09 50,000 UNIT Examination Patient lying in bed, in no acute distress General: Well-built, afebrile, palor, mucosae are moist Cardiovascular: Regular S1 and S2. No murmurs, gallops or rubs. No JVD elevation. 1+ pitting edema Respiratory: Normal B/L air entry on room air. Bilateral crackles on lower base on auscultation Abdomen: Soft, nontender, nondistended, normoactive bowel sounds, no rebound tenderness, no organomegaly, no masses Genitourinary: Deferred MSK/skin: Mobilizes 4 limbs. Skin is dry and warm. Positive straight leg test on the right side that 60 degree. Midline lumbar spinal tenderness. Neurological: No motor, no sensitive deficits, normal speech. Pupils are isocoric and reactive. Psych/Mental Status: A/Ox4 laboratory and microbiology Laboratory Tests 09/07/24 08:50 Test 09/07/24 08:50 Range/Units Serum Glucose 106 74-106 mg/dL Microbiology Date/Time Source Procedure Growth Status 09/05/24 18:37 Voided Urine Urine Culture - Final Complete Labs and/or images reviewed: Labs reviewed by me, Image(s) reviewed by me Problem List/Assessment/Plan Problem List/Assessment/Plan 09/08 - patient seen and examined at the bedside. Spinal Surgeon recommends outpatient follow up, last bowel movement 4 days. Magnesium citrate administered. X-ray KUB showed large stool burden. Chronic lower back pain with positive straight leg test Diffuse osteopenia Degenerative disc disease L4-L5-S1 Spinal canal stenosis L3-L4-L5 CT lumbar spine, showed Diffuse osteopenia. Grade 1 anterolisthesis of L5 on S1. Multilevel degenerative changes of the spine with multilevel degenerative disc osteophyte hypertrophy most prominent at L4-L5 and L5-S1. There is suggestion of moderate canal stenosis at L3-L4 and L4-L5. Physical therapy consulted Continue home medication raloxifene 60 mg daily Spinal surgeon consulted-recommended MRI lumbar spine without contrast Started Flexeril 10 mg TID Acute cystitis IV ceftriaxone starting 09/05 Hypertension Continue home medication enalapril 10 mg daily History of asthma-controlled Albuterol nebulized treatment q.6 hour Plan discussed with patient and daughter at the bedside in which all questions have been answered Goals of care discussed with patient for more than 22 minutes, full code status Case discussed with Dr. Diaz Plan discussed with: Patient My Orders My Orders Orders - HERI REGALADO RESIDENT Procedure Category Date Status Time Kub Abdomen Single XY 09/08/24 Resulted View 10:20 Dietary Evaluation Review Comments: 1. Recommend liberalizing to Regular diet for least-restrictive diet possible 2. Encourage good PO intakes >50% of meals; appropriate for advanced age 3. Weekly weights to trend possible gains/losses Expected Outcomes/Goals: Weight maintenance, adequate nutrition. Date of Service: Sep 08, 2024 Billing Provider: MANI MILLARD MD Common Visit Codes: [id number] INP/OBS CARE(HIGH) HERI REGALADO RESIDENT Sep 08, 2024 14:21 MANI MILLARD MD Sep 08, 2024 17:38
[2024-09-08] MEDS: MAGNESIUM CITRATE SOLUTION 300 ML BTL PO ONE (14:44)
[2024-09-09] VITALS (9 sets, daily range): BP systolic 118–138; BP diastolic 41–64; PULSE 54–86; RESP 16–19; TEMP 97.6–98.6; O2SAT 93–100
[2024-09-09 07:33] LABS: Anion Gap 9 (5-15); Carbon Dioxide 26 mmol/L (20-31); Chloride 104 mmol/L (98-107); Potassium 4.7 mmol/L (3.5-5.1); Sodium 139 mmol/L (136-145)
[2024-09-09 07:34] LABS: Calcium 9.3 mg/dL (8.7-10.4)
[2024-09-09 07:39] LABS: Blood Urea Nitrogen 15 mg/dL (9-23); Glucose 102 mg/dL (74-106)
[2024-09-09] MEDS ORDERED: LACT10SO3 PO (09:25)
[2024-09-09] MEDS ORDERED: DOCU1CAP46 PO (09:25)
[2024-09-09] MEDS ORDERED: CYCL-839 PO ×2 (09:25→09:30)
--- NOTE | 2024-09-09 09:30 | DVHDSRES ---
Discharge Summary Date of Admission Resident Creating Document: HERI REGALADO RESIDENT Sep 05, 2024 at 21:41 Date of Discharge: Sep 09, 2024 Labs/Diagnostic Data: Laboratory Results Test 09/09/24 06:35 09/07/24 08:50 09/06/24 07:54 09/06/24 06:43 Sodium Level 139 mmol/L (136-145) Potassium Level 4.7 mmol/L (3.5-5.1) Chloride Level 104 mmol/L (98-107) Carbon Dioxide Level 26 mmol/L (20-31) Anion Gap 9 (5-15) Blood Urea Nitrogen 15 mg/dL (9-23) Creatinine 0.79 mg/dL (0.550-1.02) Glomerular Filtration Rate Calc 74 mL/min (>90) BUN/Creatinine Ratio 19.0 (10.0-20.0) Serum Glucose 102 mg/dL (74-106) Calcium Level 9.3 mg/dL (8.7-10.4) White Blood Count 7.3 10^3/uL (4.4-10.8) Red Blood Count 4.40 10^6/uL (4.0-5.20) Hemoglobin 13.7 g/dL (12.2-16.2) Hematocrit 40.0 % (36.0-46.0) Mean Corpuscular Volume 91.0 fL (80.0-100.0) Mean Corpuscular Hemoglobin 31.1 pg (28.0-32.0) Mean Corpuscular Hemoglobin Concent 34.1 g/dL (32.0-36.0) Red Cell Distribution Width 13.5 % (11.8-14.3) Platelet Count 239 10^3/uL (140-450) Mean Platelet Volume 9.3 fL (6.9-10.8) Neutrophils (%) (Auto) 55.0 % (37.0-80.0) Lymphocytes (%) (Auto) 31.0 % (10.0-50.0) Monocytes (%) (Auto) 9.9 % (0.0-12.0) Eosinophils (%) (Auto) 3.2 % (0.0-7.0) Basophils (%) (Auto) 0.9 % (0.0-2.0) Neutrophils # (Auto) 4.0 10 ^3/uL (1.6-8.6) Lymphocytes # (Auto) 2.2 10 ^3/uL (0.4-5.4) Monocytes # (Auto) 0.7 10 ^3/uL (0-1.3) Eosinophils # (Auto) 0.2 10 ^3/uL (0-0.8) Basophils # (Auto) 0.1 10 ^3/uL (0-0.2) Nucleated Red Blood Cells 0.0 % Prothrombin Time 10.1 sec (9.3-11.8) Prothrombin Time INR 0.95 (0.9-1.15) Activated Partial Thromboplast Time 26.7 SEC (24.5-34.5) Hemoglobin A1c 5.4 % A1C (<5.7) Vitamin B12 Level 458 pg/mL (211-911) Vitamin D 25-Hydroxy 32.0 ng/mL (30.0-100) Thyroid Stimulating Hormone (TSH) 3.35 uIU/mL (0.55-4.78) Influenza Type A Antigen Negative (Negative) Influenza Type B Antigen Negative (Negative) SARS-CoV-2 Antigen (Rapid) Negative (NEGATIVE) Magnesium Level 2.0 mg/dL (1.6-2.6) Total Bilirubin 0.6 mg/dL (0.2-1.0) Aspartate Amino Transferase (AST) 13 U/L (13-40) Alanine Aminotransferase (ALT) 11 U/L (7-40) Alkaline Phosphatase 61 U/L (46-116) Troponin I High Sensitivity 4 ng/L (</=34) B-Type Natriuretic Peptide 55.07 pg/mL (0-100) Total Protein 6.4 g/dL (5.7-8.2) Albumin 4.0 g/dL (3.2-4.8) Test 09/05/24 19:16 09/05/24 18:37 Lipase 26 U/L (12-53) Urine Color Light-yellow (Yellow) Urine Clarity Clear (Clear) Urine pH 5.5 (5.0-9.0) Urine Specific [place] 1.016 (1.001-1.035) Urine Protein Negative (Negative) Urine Ketones Trace (Negative) Urine Blood Negative /uL (Negative) Urine Nitrite Negative (Negative) Urine Bilirubin Negative (Negative) Urine Urobilinogen Normal mg/dL (Negative) Urine Leukocyte Esterase 1+ /uL (Negative) Urine RBC 1 /hpf (0 - 4) Urine Microscopic WBC 15 /HPF (0-5) Urine Squamous Epithelial Cells Few /hpf (<5) Urine Bacteria None seen /hpf (None Seen) Urine Glucose Normal mg/dL (Normal) Urine Opiates Screen Neg (NEGATIVE) Urine Fentanyl Screen Neg (NEGATIVE) Urine Barbiturates Screen Neg (NEGATIVE) Urine Phencyclidine Screen Neg (NEGATIVE) Urine Amphetamines Screen Neg (NEGATIVE) Urine Benzodiazepines Screen Neg (NEGATIVE) Urine Cocaine Screen Neg (NEGATIVE) Urine Cannabinoids Screen Neg (NEGATIVE) Other Laboratory Tests 09/09/24 06:35 09/07/24 08:50 Brief Hx & Hospital Course: Mirna Pink is a Kinyarwanda-speaking 83 year old female with past medical history of hypertension, dyslipidemia, prediabetes, gout, osteoarthritis, asthma, ? Cervical cancer who presented to the ER with a chief complaint of lower back pain and bilateral posterior thigh pain for the past month. Per daughter present at bedside, patient was ambulatory a month back, but now she is less because of the pain in her back and bilateral hips and thighs. Reports that the pain is worsening with time, but denies any fever or chills, headache or urinary or bowel incontinence. The patient has a PCP who she saw 3 months back. On examination, patient had lumbar spinal midline tenderness positive straight leg test on the right side. CT lumbar spine without contrast completed showed No CT evidence of definite acute fracture, spinal dislocation, or significant appearing acute subluxation is seen. The visualized paraspinal soft tissues are grossly unremarkable. Diffuse osteopenia. Grade 1 anterolisthesis of L5 on S1. Multilevel degenerative changes of the spine with multilevel degenerative disc osteophyte hypertrophy most prominent at L4-L5 and L5-S1. There is suggestion of moderate canal stenosis at L3-L4 and L4-L5. Past medical history: See above Surgical history: , hernia repair, cholecystectomy Social history: Lives with daughter, denies smoking or drug use. Home medication: Raloxifene, enalapril, oxybutynin, and multivitamins During the hospitalization,CT lumbar spine, showed Diffuse osteopenia. Grade 1 anterolisthesis of L5 on S1. Multilevel degenerative changes of the spine with multilevel degenerative disc osteophyte hypertrophy most prominent at L4-L5 and L5-S1. There is suggestion of moderate canal stenosis at L3-L4 and L4-L5, spinal surgeon consulted, recommended MRI lumbar spine which showed Significant neural foraminal stenosis on the left at L4-L5 and bilaterally at L5-S1. These findings May correspond to lower extremity radicular symptoms in the left L4 and bilateral L5 nerve root distributions. [id number] spinal canal stenosis at L3-L4. Spinal surgeon recommended conservative and outpatient management along with outpatient pain management. PT was consulted, recommended front wheel walker which was provided to the patient. For constipation, MiraLax was continued during the stay, KUB was within normal limits, back citrate was administered and patient had 3 bowel movements overnight. We started Flexeril 10 mg TID. She received IV ceftriaxone for cystitis during the hospital stay. -patient is hemodynamically stable, clinically stable, no active complaint, therefore is being discharged home with the recommendations follow up with spinal surgeon, outpatient pain management, with the following medications: Flexeril 10 mg t.i.d. p.r.n., docusate 100 mg b.i.d., lactulose daily. Patient agrees with the discharge plan. Consults/Reason for consult Spinal surgeon consulted Operations or Procedures PROCEDURE: MRI LUMBAR SPINE WO CONTRAST INDICATION: moderate canal stenosis at L3-L4 and L4-L5 Exam Date: 09/07/2024 02:47 PM COMPARISON: CT scan of the lumbar spine dated 09/06/2024. TECHNIQUE: MRI lumbar spine without intravenous contrast. FINDINGS: No vertebral body fractures are identified about the lumbar spine. There is bilateral L5 spondylolysis with grade 2 anterolisthesis L5 on S1 measuring 11 mm AP. The conus terminates at L1-L2. L1-L2: No significant discopathy, spinal canal stenosis, or neural foraminal stenosis bilaterally. There is mild bilateral facet hypertrophy. L2-L3: There is a mild circumferential broad disc bulge. There is bilateral facet and ligamentum flavum hypertrophy. No significant spinal canal stenosis. There is mild bilateral neural foraminal stenosis. L3-L4: There is grade 1 anterolisthesis L3 on L4 measuring 3 mm AP without evidence of spondylolysis. There is disc desiccation without loss of disc height. There is a circumferential broad disc bulge, most prominent in the foraminal regions. There is bilateral facet and ligamentum flavum hypertrophy, with fluid intensity in the bilateral facets. The AP dimension of the spinal canal measures 7 mm. There is mild bilateral neural foraminal stenosis. L4-L5: There is grade 1 anterolisthesis L4 on L5 measuring 4 mm AP, without evidence of spondylolysis. There is disc desiccation without loss of disc height. There is a circumferential broad disc bulge with endplate hypertrophy. Probable central disc annulus tear without focal disc herniation. There is bilateral facet and ligamentum flavum hypertrophy, with fluid intensity in the bilateral facets. No significant spinal canal stenosis. There is mild right and moderate left neural foraminal stenosis. L5-S1: There is grade 2 anterolisthesis L5 on S1 measuring 11 mm AP, with bilateral L5 spondylolysis. There is disc desiccation with loss of disc height. There are irregularities of the adjacent endplates. There is a circumferential broad disc bulge with endplate hypertrophy, most prominent in the foraminal regions. The AP dimension of the spinal canal measures 9 mm. There is moderate to severe bilateral neural foraminal stenosis. IMPRESSION: 1. No vertebral body fracture of the lumbar spine. 2. 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 There is also grade 1 anterolisthesis L3 on L4 and L4 on L5 without evidence of spondylolysis at those levels. 3. Degenerative disc disease and facet arthropathy with [id number] spinal canal stenosis at L3-L4. No significant spinal canal stenosis is identified at any other level in the lumbar spine. 4. Significant neural foraminal stenosis on the left at L4-L5 and bilaterally at L5-S1. These findings May correspond to lower extremity radicular symptoms in the left L4 and bilateral L5 nerve root distributions. ATED BY: EMIR SOLORZANO MD DICTATED DATE/TIME: 09/07/24 1609 SIGNED BY: EMIR SOLORZANO MD SIGNED DATE/TIME: 09/07/24 1609 CC: Condition at Discharge: Stable Final Diagnosis/Problems List Chronic lower back pain with positive straight leg test secondary to significant neural foraminal stenosis L4/L5/S1 Diffuse osteopenia Degenerative disc disease L4-L5-S1 Spinal canal stenosis L3-L4-L5 Acute cystitis Constipation-resolved Hypertension-controlled History of asthma-controlled Discharge Disposition: Home Discharge Instruct/Medications Diet: Cardiac 2g Na,low cholest Activity: No Restrictions, As Tolerated Follow Up/Referral: Follow up with the spinal surgeon Dr. Morton as outpatient along with pain management as outpatient within 7 days. Follow up with primary care physician within 7 days Follow up with the discharge clinic appointment within 7 days Medications: Per EMR Discharge Statement: "Patient was advised to return to the ER or call 911 if any headaches, dizziness, shortness of breath, chest pain, abdominal pain, bleeding, fevers, or worsening of medical condition. Patient was counseled about treatment plan, medications, possible side effects, patientverbalized understanding. All questions were answered to the best of my ability. This discharge took greater then 30 minutes in planning, reviewing documentation, counseling the patient, and discussing with other team members." ASSESSMENT ASSESSMENT Assessment Chronic lower back pain with positive straight leg test Diffuse osteopenia Degenerative disc disease L4-L5-S1 Spinal canal stenosis L3-L4-L5 Acute cystitis Constipation-resolved Date of Service: Sep 09, 2024 Billing Provider: JELANI PEREZ MD Common Visit Codes: [id number] DISCH DAY >30min HERI REGALADO RESIDENT Sep 09, 2024 09:30 JELANI PEREZ MD Sep 09, 2024 14:20
== END 2024-09-09 15:30 | disposition home or self-care (01) | DRG 552 ==
LOC: ER 18:15 → OVERFLOW 21:41 → EAST 09-06 10:10 → OVERFLOW 09-06 10:10 → EAST 09-06 13:11
PROVIDERS: ADMIT Internal Medicine; ATTEND Internal Medicine
DX: M48.062 Spinal stenosis, lumbar region with neurogenic claudication (principal); N30.00 Acute cystitis without hematuria; J45.909 Unspecified asthma, uncomplicated; E11.9 Type 2 diabetes mellitus without complications; I10 Essential (primary) hypertension; E78.5 Hyperlipidemia, unspecified; M10.9 Gout, unspecified; M51.369 Other intervertebral disc degeneration, lumbar region without mention of lumbar back pain or lower extremity pain; M85.88 Other specified disorders of bone density and structure, other site; M17.0 Bilateral primary osteoarthritis of knee; M62.830 Muscle spasm of back; K59.00 Constipation, unspecified; M43.16 Spondylolisthesis, lumbar region; M43.17 Spondylolisthesis, lumbosacral region; F41.9 Anxiety disorder, unspecified; Z87.442 Personal history of urinary calculi; Z79.2 Long term (current) use of antibiotics; Z79.82 Long term (current) use of aspirin; Z90.49 Acquired absence of other specified parts of digestive tract; Z99.3 Dependence on wheelchair; Z79.899 Other long term (current) drug therapy
CPT/HCPCS: 36415; 71045; 72131; 72148; 74018; 74176; 76856; 80048; 80053; 80307; 81001; 82306; 82607; 83036; 83690; 83735; 83880; 84443; 84484; 85025; 85610; 85730; 87086; 87426; 87804; 94640; 97110; 97116; 97163; 97530; G0378

== ENCOUNTER 2024-09-12 17:45 | Inpatient (IN) | payer OTHER, MEDICAID ==
[~2024-09-12] VITALS: Ht 167.6 cm; Wt 91.9 kg
[~2024-09-12 17:45] MED LIST changes: -AML5T PO; -AZIT1POW PO; +CYCL-839 PO; +DOCU1CAP46 PO; -ENAL1TAB42 PO; +ENAL1TAB46 PO; -LACT10PA2 PO; +LACT10SO3 PO
[2024-09-12] MEDS: ACETAMINOPHEN 325 MG TAB PO ONE (18:45)
--- NOTE | 2024-09-12 18:59 | ED.PDOC ---
Musculoskeletal HPI Comments 83 year old female brought in by EMS presents to the ED with a chief complaint of LT foot pain onset 09/09/24. Patient states she was discharged from this hospital on 09/09/24 around noon and a few hours later she noticed LT foot was slightly swollen. Patient has noticed LT foot swelling has worsen, radiating to leg, and is also experiencing fever. Upon ED arrival temperature was 100.8 F. PMHx arthritis, Gout, anxiety, HTN, DM, HLD, asthma, cervial cancer. Denies nausea, vomiting, diarrhea, chest pain, shortness of breath, headache, dizziness. No other symptoms or modifying factors present at this time. Chief Complaint: Lower Extremity Time Seen by MD: 18:48 Primary Care Provider: RHIANNON Reviewed Notes: Medications, Allergies Allergies: Coded Allergies: No Known Drug Allergy (Verified Allergy, Unknown, 11/04/20) Home Meds Active Scripts Cyclobenzaprine Hcl (Cyclobenzaprine Hcl) 10 Mg Tab, 10 MG PO TIDPRN PRN for 20 Days, #60 TAB 0 Refills Prov:HERI REGALADO RESIDENT 09/09/24 Lactulose (Lactulose) 10 Gm/15 Ml Sandra, 10 GM PO DAILY for 30 Days, #30 ML 0 Refills Prov:FABRICIOHERI RESIDENT 09/09/24 Docusate Sodium (DOCQLACE) 100 Mg Cap, 100 MG PO BID for 30 Days, #60 CAP 0 Refills Prov:HERI REGALADO RESIDENT 09/09/24 Reported Medications Enalapril Maleate (VASOTEC TABLET) 10 Mg Tb, 1 TAB PO BID, #30 TAB 5 Refills 09/07/24 Gabapentin (Neurontin) 400 Mg Cap, 400 MG PO BID 09/06/23 Famotidine (Famotidine) 40 Mg Tab, 40 MG PO DAILY, TAB 09/06/23 Buspirone Hcl (Buspirone Hcl) 5 Mg Tab, 5 MG PO Q12HR for 30 Days, MG 09/05/23 Raloxifene Hydrochloride (EVISTA TABLET) 60 Mg Tb, 1 TAB PO DAILY, #30 TAB 11 Refills 09/05/23 Cholecalciferol (VITAMIN D3) 2,000 Unit Tab, 1 TAB PO DAILY for SUPPLEMENT 11/04/20 Furosemide (Furosemide) 20 Mg Tab, 1 TAB PO QAM for PERIPHERAL EDEMA 11/04/20 Potassium Chloride (Klor-Con 8) 8 Meq Tab, 1 TAB PO DAILY for SUPPLEMENT 11/04/20 Atorvastatin Calcium (ATORVASTATIN CALCIUM) 40 Mg Tab, 1 TAB PO QPM for HIGH CHOLESTEROL 11/04/20 Aspirin (ASPIRIN 81) 81 Mg Tab, 1 TAB PO QAM for HEART ATTACK PREVENTION 11/04/20 Tiotropium Hyde-Olodaterol (Stiolto Respimat 2.5-2.5 Mcg/Act) 1 Aer Aer, 2 PUFF INH QPM for ASTHMA 11/04/20 Discontinued Reported Medications Amlodipine Besylate (NORVASC TABLET) 5 Mg Tb, 1 TAB PO QAM for HYPERTENSION 11/04/20 Discontinued Scripts Azithromycin (Zithromax) 1 Gm Pow, 1 PACK PO ONCE, #1 PACK Prov:ROLAND TELLES MD 05/05/24 Lactulose (Lactulose) 10 Gm Pablo, 10 GM PO DAILY PRN, #240 PACK Prov:ALEXIS SAUNDERS MD 01/06/23 Information Source: Patient, Relative, Emergency Med Personnel Mode of Arrival: EMS Location: Left Extremity Location: Ankle, Leg Timing: Days Prehospital treatment: None Severity: Moderate Able to Move Extremity: Yes Bear Weight: Limited Pain: Moderate Circumstances: Spontaneous Onset of Symptoms: Spontaneous Symptoms: Swelling, Pain DVT Risk Factors: NONE History of: Gout, Arthritis Associated signs and symptoms: Ankle pain, Leg pain Past Medical History PAST MEDICAL HISTORY: Anxiety, Arthritis, Asthma, Cancer, DM, Gout, High Lipids, HTN, Kidney Stones, UTI'S Surgical History: Cholecystectomy, , Hernia Repair 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 History: Denies all 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 Hx Family History Family History: Reviewed,noncontributory to illness, Unknown Social History Smoker: Non-Smoker Alcohol: Denies ETOH Use Drugs: Denies Drug Use Lives In: Home Constitutional: reports: fever; denies: chills, diaphoresis, fatigue, malaise, sweats, weakness, others EENTM: denies: blurred vision, double vision, ear bleeding, ear discharge, ear drainage, ear pain, ear ringing, eye pain, eye redness, hearing loss, mouth pain, mouth swelling, nasal discharge, nose bleeding, nose congestion, nose pain, photophobia, tearing, throat pain, throat swelling, voice changes, others Respiratory: denies: cough, hemoptysis, orthopnea, SOB at rest, shortness of breath, SOB with excertion, stridor, wheezing, others Cardiovascular: denies: chest pain, dizzy spells, diaphoresis, Dyspnea on exertion, edema, irregular heart beat, left arm pain, lightheadedness, palpitations, PND, syncope, others Gastrointestinal: denies: abdomen distended, abdominal pain, blood streaked bowels, constipated, diarrhea, dysphagia, difficulty swallowing, hematemesis, melena, nausea, poor appetite, poor fluid intake, rectal bleeding, rectal pain, vomiting, others Genitourinary: denies: abnormal vagina bleeding, burning, dyspareunia, dysuria, flank pain, frequency, hematuria, incontinence, pain, , vagina discharge, urgency, others Neurological: denies: dizziness, fainting, headache, left sided numbness, left sided weakness, numbness, paresthesia, pre-existing deficit, right sided numbness, right sided weakness, seizure, speech problems, tingling, tremors, weakness, others Musculoskeletal: reports: gout, joint swelling, others (LT leg swelling, LT ankle swelling); denies: back pain, joint pain, muscle pain, muscle stiffness, neck pain Integumetry: denies: bruises, change in color, change in hair/nails, dryness, laceration, lesions, lumps, rash, wounds, others Allergic/Immunocompromised: denies: Difficulty Healing, Frequent Infections, Hives, Itching, others Hematologic/Lymphatic: denies: anemia, blood clots, easy bleeding, easy bruising, swollen glands, others Endocrine: denies: excessive hunger, excessive sweating, excessive thirst, excessive urination, flushing, intolerance to cold, intolerance to heat, unexplained weight gain, unexplained weight loss, others Psychiatric: denies: anxiety, bipolar disorder, depression, hopeless, panic disorder, schizophrenia, sleepless, suicidal, others All Other Systems: Reviewed and Negative Physical Exam General Appearance: No Apparent Distress, Normal HEENT: Normal ENT Inspection, Pharynx Normal, TMs Normal Neck: Full Range of Motion, Non-Tender, Normal, Normal Inspection Respiratory: Chest Non-Tender, Lungs Clear, No Accessory Muscle Use, No Respiratory Distress, Normal Breath Sounds Cardiovascular: No Edema, No JVD, No Murmur, No Gallop, Normal Peripheral Pulses, Regular Rate/Rhythm Breast Exam: Deferred Gastrointestinal: No Organomegaly, Non Tender, No Pulsatile Mass, Normal Bowel Sounds, Soft Genitalia: Deferred Pelvic: Deferred Rectal: Deferred Extremities: No calf tenderness, Normal capillary refill, Normal inspection, Normal range of motion, Non-tender, No pedal edema Musculoskeletal : Apperance: Normal Neurologic: Alert, hr shared services consultant II-XII nml as Tested, No Motor Deficits, Normal Affect, Normal Mood, No Sensory Deficits Cerebellar Function: Normal Reflexes: Normal Skin: Dry, Normal Color, Warm Lymphatic: No Adenopathy Was a procedure done? Was a procedure done?: No Differential Diagnosis EXT Differential Diagnosis: Cellulitis, Fracture, Sprain, Contusion, Strain X-Ray, Labs, Meds, VS Vital Signs Date Time Temp Pulse Resp B/P (MAP) Pulse Ox O2 Delivery O2 Flow Rate FiO2 09/12/24 18:03 100.8 77 16 142/70 (94) 98 100.8 Lab Test 09/12/24 21:39 09/12/24 19:05 Range/Units Troponin I High Sensitivity 4 4 </=34 ng/L White Blood Count 8.3 4.4-10.8 10^3/uL Red Blood Count 4.33 4.0-5.20 10^6/uL Hemoglobin 13.3 12.2-16.2 g/dL Hematocrit 39.7 36.0-46.0 % Mean Corpuscular Volume 91.6 80.0-100.0 fL Mean Corpuscular Hemoglobin 30.6 28.0-32.0 pg Mean Corpuscular Hemoglobin Concent 33.4 32.0-36.0 g/dL Red Cell Distribution Width 13.2 11.8-14.3 % Platelet Count 283 140-450 10^3/uL Mean Platelet Volume 9.3 6.9-10.8 fL Neutrophils (%) (Auto) 67.1 37.0-80.0 % Lymphocytes (%) (Auto) 19.7 10.0-50.0 % Monocytes (%) (Auto) 10.7 0.0-12.0 % Eosinophils (%) (Auto) 1.9 0.0-7.0 % Basophils (%) (Auto) 0.6 0.0-2.0 % Neutrophils # (Auto) 5.6 1.6-8.6 10 ^3/uL Lymphocytes # (Auto) 1.6 0.4-5.4 10 ^3/uL Monocytes # (Auto) 0.9 0-1.3 10 ^3/uL Eosinophils # (Auto) 0.2 0-0.8 10 ^3/uL Basophils # (Auto) 0.1 0-0.2 10 ^3/uL Nucleated Red Blood Cells 0.0 % Sodium Level 138 136-145 mmol/L Potassium Level 4.8 3.5-5.1 mmol/L Chloride Level 105 98-107 mmol/L Carbon Dioxide Level 27 20-31 mmol/L Anion Gap 6 5-15 Blood Urea Nitrogen 14 9-23 mg/dL Creatinine 0.83 0.550-1.02 mg/dL Glomerular Filtration Rate Calc 69 >90 mL/min BUN/Creatinine Ratio 16.9 10.0-20.0 Serum Glucose 118 H 74-106 mg/dL Lactic Acid Level 1.1 0.4-2.0 mmol/L Calcium Level 9.4 8.7-10.4 mg/dL Total Bilirubin 0.4 0.2-1.0 mg/dL Aspartate Amino Transferase (AST) 17 13-40 U/L Alanine Aminotransferase (ALT) 20 7-40 U/L Alkaline Phosphatase 74 46-116 U/L Total Protein 6.5 5.7-8.2 g/dL Albumin 4.0 3.2-4.8 g/dL Time of 1ST Reevaluation: 19:18 Reevaluation 1ST: Unchanged Patient Education/Counseling: Diagnosis, Treatment, Prognosis Family Education/Counseling: Diagnosis, Treatment, Prognosis Additional Information The following tests were ordered, and results were reviewed by me: CBC, CMP, LA W/ REFLEX, BLOOD CULTRUE, TROP -x3, XY L ANKLE 3 VIEW, XY CHEST, US LT LOWER DVT Additional Information was gathered from interviewing the following independent historians: daughter I reviewed and agreed with the following test results read by other providers: XY L ANKLE 3 VIEW, XY CHEST, US LT LOWER DVT I discussed treatment and results with medical personnel and: Patient, daughter Departure 1 Departure Time of Disposition: 00:06 (Patient with left leg pain and fever concerning for process cellulitis. We will empirically cover patient with antibiotics and the patient for further workup. We will not give patient will full fluid boluses patient has a component of volume overload.) Impression: Primary Impression: Cellulitis Qualified Codes: L03.116 - Cellulitis of left lower limb Additional Impressions: Fever Qualified Codes: R50.9 - Fever, unspecified Left leg pain Disposition: ADMITTED INPATIENT Admit to: Med Surg Condition: Serious Critical Care Note Critical Care Time?: Yes Critical care comment: Concern for sepsis Authorized and Performed by: Galina Granados MD Total critical care time: Approximately 38 minutes Due to a high probability of clinically significant, life threatening deterioration, the patient required my highest level of preparedness to intervene emergently and I personally spent this critical care time directly and personally managing the patient. This critical care time included obtaining a hi story; examining the patient; pulse oximetry; ordering and review of studies; arranging urgent treatment with development of a management plan; evaluation of patient's response to treatment; frequent reassessment; and, discussions with other providers. This critical care time was performed to assess and manage the high probability of imminent, life-threatening deterioration that could result in multi-organ failure. It was exclusive of separately billable procedures and treating other patients and teaching time. Please see my other sections and the rest of the note for further information on patient assessment and treatment. Stability Stability form required: No I personally scribed for GALINA GRANADOS MD ([email or web address]) on 09/12/24 at 18:59. Electronically submitted by Marbella Moya ([email or web address]). I personally scribed for GALINA GRANADOS MD ([email or web address]) on 09/12/24 at 20:24. Electronically submitted by Marbella Moya ([email or web address]). GALINA GRANADOS MD Sep 12, 2024 18:59
[2024-09-12 19:28] LABS: Basophils # (auto) 0.1 10 ^3/uL (0-0.2); Basophils % (auto) 0.6 % (0.0-2.0); Eosinophils # (auto) 0.2 10 ^3/uL (0-0.8); Eosinophils % (auto) 1.9 % (0.0-7.0); Hematocrit 39.7 % (36.0-46.0); Hemoglobin 13.3 g/dL (12.2-16.2); Lymphocytes # (auto) 1.6 10 ^3/uL (0.4-5.4); Lymphocytes % (auto) 19.7 % (10.0-50.0); Mean Corpuscular Hemoglobin 30.6 pg (28.0-32.0); Mean Corpuscular Hgb Conc. 33.4 g/dL (32.0-36.0); Mean Corpuscular Volume 91.6 fL (80.0-100.0); Monocytes # (auto) 0.9 10 ^3/uL (0-1.3); Monocytes % (auto) 10.7 % (0.0-12.0); Neutrophils # (auto) 5.6 10 ^3/uL (1.6-8.6); Neutrophils % (auto) 67.1 % (37.0-80.0); Platelet Count (auto) 283 10^3/uL (140-450); Red Blood Cells 4.33 10^6/uL (4.0-5.20); Red Cell Distribution Width 13.2 % (11.8-14.3); White Blood Cell 8.3 10^3/uL (4.4-10.8)
[2024-09-12 19:42] LABS: Alanine Aminotransferase 20 U/L (7-40); Alkaline Phosphatase 74 U/L (46-116); Anion Gap 6 (5-15); Aspartate Aminotransferase 17 U/L (13-40); BUN/Creatinine Ratio 16.9 (10.0-20.0); Bilirubin, Total 0.4 mg/dL (0.2-1.0); Blood Urea Nitrogen 14 mg/dL (9-23); Calcium 9.4 mg/dL (8.7-10.4); Carbon Dioxide 27 mmol/L (20-31); Chloride 105 mmol/L (98-107); Potassium 4.8 mmol/L (3.5-5.1); Sodium 138 mmol/L (136-145); Total Protein 6.5 g/dL (5.7-8.2)
[2024-09-12 19:43] LABS: Glucose 118 mg/dL (74-106)
--- NOTE | 2024-09-12 19:43 | DVH ---
CLINICAL INDICATION: left foot and ankle pain TECHNIQUE: XY L ANKLE 3 VIEW Comparison: None FINDINGS/IMPRESSION: : There is no evidence of acute fracture or dislocation. Diffuse soft-tissue swelling.
--- NOTE | 2024-09-12 19:50 | DVH ---
CHEST RADIOGRAPH Indication: fever Technique: Single frontal view of the chest was obtained Comparison: XY CHEST XRAY 1 VIEW on DOS: 09/06/24, XY CHEST XRAY 1 VIEW on DOS: 09/06/23, XY CHEST PORT ABLE on DOS: 01/02/23 FINDINGS: Lines and Tubes: None Lungs: No focal consolidation. Pleura: No effusion. No pneumothorax. Cardiomediastinal contours: Unremarkable Bones: NARROWING OF THE ACROMIOCLAVICULAR JOINT ON THE RIGHT SUGGESTING CHRONIC ROTATOR CUFF TEAR IMPRESSION: 1. No acute cardiopulmonary disease. 2. Narrowing of the right acromioclavicular joint consistent with chronic rotator cuff tear.
[2024-09-13] VITALS (11 sets, daily range): BP systolic 99–147; BP diastolic 48–79; PULSE 62–87; RESP 16–22; TEMP 97.6–98.3; O2SAT 91–99
[2024-09-13] MEDS: SODIUM CHLORIDE 0.9% 1,000 ML IV ONE (00:43)
[2024-09-13] MEDS: VANCOMYCIN 1GM/250ML KIT 200 ML IV ONE (00:53)
[2024-09-13] MEDS ORDERED: ACETAMINOPHEN 325 MG TAB PO PRN (01:30)
--- NOTE | 2024-09-13 02:03 | DVHHPRES ---
History of Present Illness Resident Creating Document: JESSICA BHAKTA RESIDENT Reason for Visit: CELLULITIS VS GOUT History of Present Illness Patient is an 83 year-old female presented to the ED with a chief complaint of LT foot pain onset 09/09/24. Patient states she was discharged from this hospital on 09/09/24 around noon and a few hours later she noticed LT foot was slightly swollen. Patient has noticed LT foot swelling has worsen, radiating to knee, and is also experiencing fever. Upon ED arrival temperature was 100.8 f. She denies nausea, vomiting, diarrhea, chest pain, shortness of breath, headache, dizziness. No other symptoms or modifying factors present at this time. Xray of the foot shows no evidence of acute fracture or dislocation but diffuse soft-tissue swelling. pmhx: hypertension, dyslipidemia, prediabetes, gout, osteoarthritis, asthma, cardial cancer pshx: Fhx: Noncontributory Social history: Non-Smoker, no alcohol use or drug use.lives at home Past Medical History See HPI Review of Systems Review of Systems Constitutional: fever, no chills no feeling of malaise HEENT: Denies headache, ear pain, ear discharges, conjunctivitis, nasal discharge throat pain Cardiovascular: Denies chest pain, palpitation, orthopnea, PND, or pedal edema Respiratory: Denies shortness of breath, cough cough, sputum production, hemoptysis, GI: Denies abdominal pain, nausea, vomiting, diarrhea, hematemesis, hematochezia, : Denies frequency, urgency, hematuria, Endocrine: Denies unintentional weight gain or weight loss, feeling of hot flashes, Kevin: Denies easy bruising, bleeding disorders, epistaxis Musculoskeletal: left foot pain and swelling, No redness to evidence of trauma, Psych: No evidence of depression, lester, suicidal ideation Constitutional: Yes: Fever Musculoskeletal: leg pain, foot pain Allergies: Coded Allergies: Vancomycin (Verified Adverse Reaction, Intermediate, itching. , 09/13/24) Exam Vital Signs Vital Signs Date Time Temp Pulse Resp B/P (MAP) Pulse Ox O2 Delivery O2 Flow Rate FiO2 09/13/24 00:23 97.9 77 15 129/75 (93) 100 97.9 Exam General Appearance: Alert, Oriented X3, Cooperative, mild distress HEENT: Atraumatic, PERRLA, EOMI, Mucous membrane moist/pink Respiratory: Clear to auscultation, Normal air movement Cardiovascular: Regular rate, Normal S1, Normal S2, No murmurs, no chest wall tenderness Abdominal: NO distention, no tenderness, bowel sounds present, no scars noted Extremities: No clubbing, No cyanosis, No edema, Normal pulses, left lower extremity to the knee Skin: No rashes, No breakdown, No significant lesion Neuro:Sensation intact, Cranial nerves 3-12 NL, Reflexes 2+ Psych/Mental Status: Mental status NL, Mood NL Labs/Xrays Labs Test 09/12/24 21:39 09/12/24 19:05 Range/Units Troponin I High Sensitivity 4 </=34 ng/L White Blood Count 8.3 4.4-10.8 10^3/uL Red Blood Count 4.33 4.0-5.20 10^6/uL Hemoglobin 13.3 12.2-16.2 g/dL Hematocrit 39.7 36.0-46.0 % Mean Corpuscular Volume 91.6 80.0-100.0 fL Mean Corpuscular Hemoglobin 30.6 28.0-32.0 pg Mean Corpuscular Hemoglobin Concent 33.4 32.0-36.0 g/dL Red Cell Distribution Width 13.2 11.8-14.3 % Platelet Count 283 140-450 10^3/uL Mean Platelet Volume 9.3 6.9-10.8 fL Neutrophils (%) (Auto) 67.1 37.0-80.0 % Lymphocytes (%) (Auto) 19.7 10.0-50.0 % Monocytes (%) (Auto) 10.7 0.0-12.0 % Eosinophils (%) (Auto) 1.9 0.0-7.0 % Basophils (%) (Auto) 0.6 0.0-2.0 % Neutrophils # (Auto) 5.6 1.6-8.6 10 ^3/uL Lymphocytes # (Auto) 1.6 0.4-5.4 10 ^3/uL Monocytes # (Auto) 0.9 0-1.3 10 ^3/uL Eosinophils # (Auto) 0.2 0-0.8 10 ^3/uL Basophils # (Auto) 0.1 0-0.2 10 ^3/uL Nucleated Red Blood Cells 0.0 % Sodium Level 138 136-145 mmol/L Potassium Level 4.8 3.5-5.1 mmol/L Chloride Level 105 98-107 mmol/L Carbon Dioxide Level 27 20-31 mmol/L Anion Gap 6 5-15 Blood Urea Nitrogen 14 9-23 mg/dL Creatinine 0.83 0.550-1.02 mg/dL Glomerular Filtration Rate Calc 69 >90 mL/min BUN/Creatinine Ratio 16.9 10.0-20.0 Serum Glucose 118 H 74-106 mg/dL Lactic Acid Level 1.1 0.4-2.0 mmol/L Calcium Level 9.4 8.7-10.4 mg/dL Total Bilirubin 0.4 0.2-1.0 mg/dL Aspartate Amino Transferase (AST) 17 13-40 U/L Alanine Aminotransferase (ALT) 20 7-40 U/L Alkaline Phosphatase 74 46-116 U/L Total Protein 6.5 5.7-8.2 g/dL Albumin 4.0 3.2-4.8 g/dL Assessment/Plan Assessment/Plan Cellulitis --> Continue antibiotics -> Vancomycin and Cefepime R/o Necrotizing fasciitis --> CT left leg, report pending --> Antibiotic: Vancomycin and Cefepime Hypertension --> Continue home medication Dyslipidemia --> Continue home medication Prediabetes --> Continue lifestyle modification, diet History of Gout -->Uric acid : 4.6 --> Not on allupurinola Osteoarthritis --> Continue continue home medication Asthma --> continue current regimen Goal of care discussed for more than 30 minutes, full code Case and plan discussed with Dr. Pineda Plan discussed with: Patient, Daughter My Orders Orders - JESSICA BHAKTA RESIDENT Procedure Category Date Status Time Admit ADMIT 09/13/24 Transmitted 01:27 Code Status CODE 09/13/24 Transmitted 01:27 Vital Signs SYLVIA 09/13/24 In Process 01:27 Review Orders With SYLVIA 09/13/24 In Process Adm. 01:27 Acetaminophen Tablet PHA 09/13/24 In Process (Tylenol Tablet) 01:30 Notify Of Changes SYLVIA 09/13/24 In Process From Base 01:27 Advance Directive SYLVIA 09/13/24 In Process 01:27 Patient Condition ORDERS 09/13/24 Transmitted 01:27 Allergies SYLVIA 09/13/24 In Process 01:27 Hydrocodone-Acet PHA 09/13/24 In Process 5/325mg Tab ([place] 01:30 Notify Of Changes SYLVIA 09/13/24 In Process From Base 01:[address] 09/13/24 Logged W/O Con 01:27 Complete Blood Count LAB 09/13/24 Logged 04:00 Basic Metabolic Panel LAB 09/13/24 Logged 04:00 Enoxaparin Sodium PHA 09/13/24 In Process (Lovenox) 10:00 Erythrocyte LAB 09/13/24 Verified Sedimentation Rate 01:42 C-Reactive Protein LAB 09/13/24 Verified 01:42 Uric Acid LAB 09/13/24 Verified 01:42 Date of Service: Sep 13, 2024 Billing Provider: MANI PINEDA MD Common Visit Codes: 48799-[id number] INP/OBS CARE (HIGH) Secondary Visit Codes: 32174-[id number] CARE PLAN 30 MINUTES JESSICA BHAKTA RESIDENT Sep 13, 2024 02:03 MANI PINEDA MD Sep 13, 2024 17:23
[2024-09-13] MEDS: CEFEPIME 2GM/50ML NS 50 ML IV ONE (02:45)
[2024-09-13] MEDS: ENOXAPARIN SOD 40 MG/0.4 ML SYRINGE SC ONE (02:45)
[2024-09-13 03:44] LABS: Hemoglobin 12.7 g/dL (12.2-16.2); Mean Corpuscular Hemoglobin 30.2 pg (28.0-32.0); Mean Corpuscular Hgb Conc. 33.3 g/dL (32.0-36.0); Mean Corpuscular Volume 90.6 fL (80.0-100.0); Platelet Count (auto) 269 10^3/uL (140-450); Red Cell Distribution Width 13.3 % (11.8-14.3); White Blood Cell 8.7 10^3/uL (4.4-10.8)
[2024-09-13] MEDS ORDERED: VANCOMYCIN PER PHARMACY 0 MG IV SCH (03:45)
--- NOTE | 2024-09-13 03:46 | DVH ---
Examination : LLEX CLINICAL INDICATION: r/o necrotizing faciitis COMPARISON: None. CONTRAST USED: None. TECHNIQUE: Spiral axial CT images through the lower leg were acquired without contrast, reconstructe d in multiple projections, and imaged using soft tissue and bone algorithms. The CT scan was performe d according to ALARA (As Low as Reasonably Achievable) principles. Reformatted/MPR images were perfor med. FINDINGS: Osseous Structures: Grossly unremarkable mineralization, architecture, and alignment are noted. There is no CT evidence of fracture or osseous lesion identified. The joints appear unremarkable with no evidence of disloca tion. Soft Tissues: There is no CT evidence of a soft tissue mass. Limited CT evaluation of the muscles and tendons is g rossly unremarkable. However, there is diffuse soft tissue edema around the ankle joint and dorsal a spect of the foot, suggestive of probable changes of cellulitis. No obvious drainable collection is identified. Degenerative Changes: Cxwovjor-fr-ojxkjb degenerative changes are observed in the tibiotalar and talofibular joints with alaniz bchondral cystic changes. Moderate degenerative changes are present in the intertarsal joint, and mi ld degenerative changes are noted in the metatarsophalangeal and interphalangeal joints. Ludf-ec-cqsk rate tricompartmental osteoarthritic changes are seen in the knee joint, along with moderate knee dinh nt effusion. Calcification of the medial and lateral meniscus is present, and meniscal injury cannot be excluded. Tendons: Mild thickening of the tibialis posterior tendon is observed, with calcification consistent with calc ific tendinopathy of the tibialis posterior tendon. The muscles in the anterior and posterior compar tments of the leg appear unremarkable. IMPRESSION: 1. No evidence of acute fracture or dislocation. No changes of osteo-myelitis. 2. Voyvgsva-db-secgei degenerative changes in the tibiotalar and talofibular joints with subchondral cystic changes. 3. Moderate degenerative changes in the intertarsal joint and mild degenerative changes in the metat arsophalangeal and interphalangeal joints. 4. Diffuse soft tissue edema around the ankle joint and dorsal aspect of the foot, probable changes of cellulitis. No obvious drainable collection is identified. 5. Mild thickening and calcification of the tibialis posterior tendon consistent with calcific tendi nopathy. 6. Mcem-wo-zyeoubnz tricompartmental osteoarthritic changes in the knee joint with moderate knee dinh nt effusion. Calcification of the medial and lateral meniscus is noted, and meniscal injury is not e xcluded. Electronically Signed 09/13/2024 03:45 Maxi Burris
[2024-09-13 03:48] LABS: Alanine Aminotransferase 14 U/L (7-40); Alkaline Phosphatase 59 U/L (46-116); Anion Gap 7 (5-15); Carbon Dioxide 22 mmol/L (20-31); Potassium 4.1 mmol/L (3.5-5.1); Sodium 138 mmol/L (136-145)
[2024-09-13 03:49] LABS: Albumin 3.9 g/dL (3.2-4.8); Aspartate Aminotransferase 14 U/L (13-40); Basophils % (manual) 0 (0.0-2.0); Bilirubin, Total 0.5 mg/dL (0.2-1.0); Blast Cells 0; Blood Urea Nitrogen 15 mg/dL (9-23); Chloride 109 mmol/L (98-107); Glucose 109 mg/dL (74-106); Metamyelocytes % 0; Myelocytes % 0; Promyelocytes % 0; Reactive Lymphocytes 0; Total Protein 6.6 g/dL (5.7-8.2)
[2024-09-13] MEDS: VANCOMYCIN 1GM/250mL NS or D5W KIT IV ONE (04:00)
[2024-09-13 04:05] LABS: Erythrocyte Sedimentation Rate 62 mm/hr (0-20)
[2024-09-13 04:46] LABS: Band Neutrophils % (manual) 2; Eosinophils % (manual) 2 (0-7); Lymphocytes % (manual) 22 (10.0-50.0); Monocytes % (manual) 8 (0-12)
[2024-09-13 04:47] LABS: Platelet Estimate Adequate; RBC Morphology Normal
[2024-09-13] MEDS: HYDROcodone-ACET 5/325MG TAB PO PRN (05:50)
[2024-09-13 06:07] LABS: Basophils # (auto) 0.1 10 ^3/uL (0-0.2); Basophils % (auto) 1.1 % (0.0-2.0); Eosinophils # (auto) 0.2 10 ^3/uL (0-0.8); Eosinophils % (auto) 2.7 % (0.0-7.0); Hematocrit 34.9 % (36.0-46.0); Lymphocytes # (auto) 2.5 10 ^3/uL (0.4-5.4); Lymphocytes % (auto) 31.8 % (10.0-50.0); Mean Corpuscular Hemoglobin 31.4 pg (28.0-32.0); Mean Corpuscular Hgb Conc. 34.4 g/dL (32.0-36.0); Mean Corpuscular Volume 91.3 fL (80.0-100.0); Monocytes # (auto) 0.9 10 ^3/uL (0-1.3); Monocytes % (auto) 11.9 % (0.0-12.0); Neutrophils # (auto) 4.1 10 ^3/uL (1.6-8.6); Neutrophils % (auto) 52.5 % (37.0-80.0); Nucleated Red Blood Cells % 0.1 %; Platelet Count (auto) 240 10^3/uL (140-450); Red Blood Cells 3.82 10^6/uL (4.0-5.20); Red Cell Distribution Width 13.3 % (11.8-14.3); White Blood Cell 7.9 10^3/uL (4.4-10.8)
[2024-09-13] MEDS: ENOXAPARIN SOD 40 MG/0.4 ML SYRINGE SC SCH (10:06)
[2024-09-13] MEDS: LACTULOSE 20Gm/30ML SOLN PO SCH (10:06)
[2024-09-13] MEDS: FUROSEMIDE 40 MG/4 ML VIAL IV ONE (10:08)
--- NOTE | 2024-09-13 10:41 | DVH ---
LEFT LOWER EXTREMITY VENOUS DOPPLER ULTRASOUND CLINICAL HISTORY: left leg pain, swelling, and fever COMPARISON: None TECHNIQUE: Grayscale ultrasound with compression, Color Doppler flow and duplex spectral Doppler sonography of the left lower extremity femoral popliteal deep venous system is performed. FINDINGS: Left common femoral vein: Negative. Left greater saphenous vein: Negative. Left deep femoral vein: Negative. Left femoral vein: Negative. Left popliteal vein: Negative. Other: Negative. IMPRESSION: I WOODS
[2024-09-13] MEDS: CEFEPIME 1GM/ 50ML 50 ML IV SCH (10:50)
--- NOTE | 2024-09-13 15:08 | DVHPNRES ---
Progress Note Date Seen: Sep 13, 2024 Resident Creating Document: HERI REGALADO RESIDENT Medical Necessity Reason Pt with a Central, PICC or Fol: No Subjective Review of Systems Mirna Pink is a [place] Citizen-speaking 83 year old female with past medical history of significant neural foraminal stenosis L4/L5/S1, hypertension, dyslipidemia, prediabetes, gout, osteoarthritis, asthma, ? Cervical cancer who presented to the ER with a chief complaint of lower extremity swelling and inability to ambulate. she was recently discharged from this hospital on 09/09 with significant neural foraminal stenosis and patient reports that this soon as she went home she started developing bilateral swelling and pain. Associated symptoms included fever but patient denied any shortness of breath or chest pain or nausea or vomiting. On admission, patient was febrile at 100.8 F, ESR 62, CRP 12, CBC and CMP unremarkable. Lower extremity CT showed diffuse soft tissue edema in the left ankle suspected cellulitis. Patient was started on IV vancomycin and cefepime. Past medical history: See above Surgical history: , hernia repair, cholecystectomy Social history: Lives with daughter, denies smoking or drug use. Home medication: Raloxifene, enalapril, oxybutynin, and multivitamins Patient seen and examined at bedside. Has bilateral pitting edema up to ankle, more than left as compared to right. Continue IV antibiotics. Objective vital signs Vital Sign Date Time Temp Pulse Resp B/P (MAP) Pulse Ox O2 Delivery O2 Flow Rate FiO2 09/13/24 10:08 136/48 09/13/24 09:00 97.6 67 16 93 97.6 09/13/24 02:31 Room Air* 0 21 Total Intake and Output 09/12/24 09/12/24 09/13/24 15:00 23:00 07:00 Intake Total 0 ml Balance 0 ml medications Current Medications Medications Dose Ordered Sig/Rodney Route Start Time Stop Time Status Last Admin Dose Admin Acetaminophen 650 mg Q6HP PRN PO 09/13/24 01:30 Acetaminophen/ Hydrocodone Bitart 1 tab Q4HP PRN PO 09/13/24 01:30 09/13/24 05:50 1 TAB Enoxaparin Sodium 40 mg DAILY SC 09/13/24 10:00 09/13/24 10:06 40 MG Vancomycin HCl 0 ml @ 0 mls/hr UD IV 09/13/24 03:45 Cefepime HCl 50 ml @ 12.5 mls/hr Q8HR@0300,1100,1900 IV 09/13/24 11:00 09/13/24 10:50 12.5 MLS/HR Lactulose 30 ml BID PO 09/13/24 10:00 09/13/24 10:06 30 ML Diphenhydramine HCl 50 mg Q6HP PRN PO 09/13/24 10:00 Vancomycin HCl 150 ml @ 150 mls/hr Q18H IV 09/13/24 16:00 Examination Patient lying in bed, in no acute distress General: Well-built, afebrile, palor, mucosae are moist Cardiovascular: Regular S1 and S2. No murmurs, gallops or rubs. No JVD elevation. Respiratory: Normal B/L air entry on room air. Clear lung sounds on auscultation Abdomen: Soft, nontender, nondistended, normoactive bowel sounds, no rebound tenderness, no organomegaly, no masses Genitourinary: Deferred MSK/skin: Mobilizes 4 limbs. Skin is dry and warm. Bilateral lower extremity pitting edema and swelling to ankles, left more than right. Neurological: No motor, no sensitive deficits, normal speech. Pupils are isocoric and reactive. Psych/Mental Status: A/Ox3 laboratory and microbiology Laboratory Tests 09/13/24 05:31 09/13/24 02:48 Test 09/13/24 02:48 Range/Units Serum Glucose 109 H 74-106 mg/dL Labs and/or images reviewed: Labs reviewed by me, Image(s) reviewed by me Problem List/Assessment/Plan Problem List/Assessment/Plan Acute left lower extremity cellulitis Ruled out necrotizing fascitis IV vancomycin and cefepime starting 09/12 Received IV fluids with IV NS Lasix 40 mg administered Blood culture pending ESR 62, CRP 12 Dyslipidemia Continue atorvastatin 40 mg daily Prediabetes mellitus Counseled regarding lifestyle measures for more than 28 minutes Hypertension Continue home medication enalapril 10 mg daily History of asthma-controlled Albuterol nebulized treatment q.6 hour Plan discussed with patient in which all questions have been answered Goals of care discussed with patient for more than 27 minutes, full code status Case discussed with Dr. Mora Plan discussed with: Patient My Orders My Orders Orders - HERI REGALADO RESIDENT Procedure Category Date Status Time Lactulose Oral PHA 3/19/25 In Process 10:00 Urinalysis LAB 09/13/24 Logged 08:46 Diphenhdramine PHA 09/13/24 In Process Capsule (Benadryl 10:00 Date of Service: Sep 13, 2024 Billing Provider: CAROL MORA DO Common Visit Codes: [id number] INP/OBS CARE(HIGH) HERI REGALADO RESIDENT Sep 13, 2024 15:08 CAROL MORA DO Sep 16, 2024 23:48
[2024-09-13] MEDS ORDERED: CYCLOBENZAPRINE HCL 10 MG TAB PO PRN (15:30)
[2024-09-13] MEDS: VANCOMYCIN 750mg/150ml 150 ML IV SCH (16:00)
[2024-09-13] MEDS: diphenhdrAMINE HCL 25 MG CAP PO PRN (17:08)
[2024-09-13] MEDS: ALBUTEROL SULF 2.5 MG/0.5ML(0.5%) NEB SOLN NEB SCH (17:58)
[2024-09-13] MEDS: DOCUSATE SOD 100 MG CAP PO SCH (21:38)
[2024-09-13] MEDS ORDERED: ENALAPRIL MALEATE 10 MG TAB PO SCH (22:00)
[2024-09-14] VITALS (13 sets, daily range): BP systolic 108–154; BP diastolic 33–74; PULSE 58–85; RESP 15–19; TEMP 97.9–98.2; O2SAT 93–99
[2024-09-14] MEDS: ASPirin-EC 81 mg tab PO SCH (05:57)
[2024-09-14 07:05] LABS: Basophils # (auto) 0.1 10 ^3/uL (0-0.2); Eosinophils # (auto) 0.4 10 ^3/uL (0-0.8); Eosinophils % (auto) 5.8 % (0.0-7.0); Hemoglobin 12.4 g/dL (12.2-16.2); Lymphocytes % (auto) 32.5 % (10.0-50.0); Mean Corpuscular Hemoglobin 31.4 pg (28.0-32.0); Mean Corpuscular Hgb Conc. 34.5 g/dL (32.0-36.0); Mean Corpuscular Volume 91.1 fL (80.0-100.0); Monocytes # (auto) 0.7 10 ^3/uL (0-1.3); Monocytes % (auto) 12.1 % (0.0-12.0); Neutrophils % (auto) 48.6 % (37.0-80.0); Nucleated Red Blood Cells % 0.1 %; Platelet Count (auto) 265 10^3/uL (140-450); Red Blood Cells 3.95 10^6/uL (4.0-5.20); Red Cell Distribution Width 13.2 % (11.8-14.3); White Blood Cell 6.1 10^3/uL (4.4-10.8)
[2024-09-14 07:13] LABS: Potassium 3.9 mmol/L (3.5-5.1); Sodium 140 mmol/L (136-145)
[2024-09-14 07:14] LABS: Anion Gap 8 (5-15); Carbon Dioxide 24 mmol/L (20-31)
[2024-09-14 07:19] LABS: Glucose 103 mg/dL (74-106)
[2024-09-14 07:20] LABS: BUN/Creatinine Ratio 13.9 (10.0-20.0); Blood Urea Nitrogen 10 mg/dL (9-23)
[2024-09-14 07:22] LABS: Chloride 108 mmol/L (98-107)
[2024-09-14] MEDS: ENALAPRIL MALEATE 10 MG TAB PO SCH (10:56)
--- NOTE | 2024-09-14 11:23 | DVH ---
Bilateral Lower Extremity Arterial Duplex Clinical History: pad Comparison: None Technique: Duplex Doppler evaluation including color Doppler and spectral/pulsed waveform analysis of the lower extremity arteries was performed. Findings: RIGHT: Peak systolic velocities are as follows: WEBSPHERE ARCHITECT 181 cm/s Deep femoral 65 cm/s SFA proximal 117 cm/s SFA mid-portion 132 cm/s SFA distal 127 cm/s Popliteal 76 cm/s Posterior tibial 88 cm/s Anterior tibial 78 cm/s Peroneal na cm/s Dorsalis pedis 78 cm/s The waveforms are biphasic with diastolic flow. LEFT: Peak systolic velocities are as follows: WEBSPHERE ARCHITECT 153 cm/s Deep femoral 73 cm/s SFA proximal 134 cm/s SFA mid-portion 114 cm/s SFA distal 153 cm/s Popliteal 88 cm/s Posterior tibial 74 cm/s Anterior tibial 132 cm/s Peroneal na cm/s Dorsalis pedis 132 cm/s The waveforms are triphasic with diastolic flow. IMPRESSION: 20-49% stenosis of bilateral common femoral arteries and left distal superficial femoral artery based on peak systolic velocity criteria. REFERENCE VALUES, [facility] ([facility]) vascular Imaging Lab Criteria: Peak systolic velocity ranges (in cm/sec) are as follows: <150 cm/s - <20 % stenosis 150-200 cm/s - 20-49% stenosis 200-300 cm/s - 50-75% stenosis >300 cm/s -> 75% stenosis
--- NOTE | 2024-09-14 11:28 | DVHPNRES ---
Progress Note Date Seen: Sep 14, 2024 Resident Creating Document: HERI REGALADO RESIDENT Medical Necessity Reason Pt with a Central, PICC or Fol: No Subjective Review of Systems Mirna Pink is a Bengali-speaking 83 year old female with past medical history of significant neural foraminal stenosis L4/L5/S1, hypertension, dyslipidemia, prediabetes, gout, osteoarthritis, asthma, ? Cervical cancer who presented to the ER with a chief complaint of lower extremity swelling and inability to ambulate. she was recently discharged from this hospital on 09/09 with significant neural foraminal stenosis and patient reports that this soon as she went home she started developing bilateral swelling and pain. Associated symptoms included fever but patient denied any shortness of breath or chest pain or nausea or vomiting. On admission, patient was febrile at 100.8 F, ESR 62, CRP 12, CBC and CMP unremarkable. Lower extremity CT showed diffuse soft tissue edema in the left ankle suspected cellulitis. Patient was started on IV vancomycin and cefepime. Past medical history: See above Surgical history: , hernia repair, cholecystectomy Social history: Lives with daughter, denies smoking or drug use. Home medication: Raloxifene, enalapril, oxybutynin, and multivitamins 09/14 Patient seen and examined at bedside. Left-sided swelling from toe up to the knee, CT scan showed moderate effusion of the left knee. IR consulted, patient underwent arthrocentesis, pending results. Called in lab to put in the order for joint Crystal Objective vital signs Vital Sign Date Time Temp Pulse Resp B/P (MAP) Pulse Ox O2 Delivery O2 Flow Rate FiO2 09/14/24 10:56 140/63 09/14/24 08:33 98.0 58 15 96 98.0 09/14/24 08:22 Room Air* 0 21 Total Intake and Output 09/13/24 09/13/24 09/14/24 15:00 23:00 07:00 Intake Total 50 ml 865 ml 850 ml Output Total 275 ml Balance 50 ml 865 ml 575 ml medications Current Medications Medications Dose Ordered Sig/Rodney Route Start Time Stop Time Status Last Admin Dose Admin Acetaminophen 650 mg Q6HP PRN PO 09/13/24 01:30 Acetaminophen/ Hydrocodone Bitart 1 tab Q4HP PRN PO 09/13/24 01:30 09/13/24 05:50 1 TAB Enoxaparin Sodium 40 mg DAILY SC 09/13/24 10:00 09/14/24 10:57 40 MG Vancomycin HCl 0 ml @ 0 mls/hr UD IV 09/13/24 03:45 Cefepime HCl 50 ml @ 12.5 mls/hr Q8HR@0300,1100,1900 IV 09/13/24 11:00 09/14/24 03:34 12.5 MLS/HR Lactulose 30 ml BID PO 09/13/24 10:00 09/13/24 21:37 30 ML Diphenhydramine HCl 50 mg Q6HP PRN PO 09/13/24 10:00 09/14/24 10:56 50 MG Vancomycin HCl 150 ml @ 150 mls/hr Q18H IV 09/13/24 16:00 09/14/24 10:55 150 MLS/HR Aspirin 81 mg QAM PO 09/14/24 07:00 09/14/24 05:57 81 MG Cyclobenzaprine HCl 10 mg TIDPRN PRN PO 09/13/24 15:30 Docusate Sodium 100 mg BID PO 09/13/24 22:00 09/13/24 21:38 100 MG Albuterol 2.5 mg Q6HWA NEB 09/13/24 18:00 09/14/24 08:21 2.5 MG Enalapril Maleate 10 mg DAILY PO 09/14/24 10:00 09/14/24 10:56 10 MG Examination Patient lying in bed, in no acute distress General: Well-built, afebrile, palor, mucosae are moist Cardiovascular: Regular S1 and S2. No murmurs, gallops or rubs. No JVD elevation. Respiratory: Normal B/L air entry on room air. Clear lung sounds on auscultation Abdomen: Soft, nontender, nondistended, normoactive bowel sounds, no rebound tenderness, no organomegaly, no masses Genitourinary: Deferred MSK/skin: Mobilizes 4 limbs. Skin is dry and warm. Left lower extremity swelling with pitting edema from toes to the level of knee. Neurological: No motor, no sensitive deficits, normal speech. Pupils are isocoric and reactive. Psych/Mental Status: A/Ox3 laboratory and microbiology Laboratory Tests 09/14/24 06:29 Test 09/14/24 06:29 Range/Units Serum Glucose 103 74-106 mg/dL Microbiology Date/Time Source Procedure Growth Status 09/13/24 03:22 Nose MRSA Screen - Final Complete 09/12/24 19:05 Blood Blood Culture - Preliminary NO GROWTH AFTER 24 HOURS OF INCUBATION. Resulted Labs and/or images reviewed: Labs reviewed by me, Image(s) reviewed by me Problem List/Assessment/Plan Problem List/Assessment/Plan Acute left lower extremity cellulitis Ruled out necrotizing fascitis Moderate knee effusion status post arthrocentesis Ruled out DVT left lower extremity IV vancomycin and cefepime starting 09/12 Received IV fluids with IV NS Lasix 40 mg administered Blood culture pending ESR 62, CRP 12 Radiologist Consulted-underwent arthrocentesis 09/14. Pending results Dyslipidemia Continue atorvastatin 40 mg daily Prediabetes mellitus Counseled regarding lifestyle measures for more than 28 minutes Neural foraminal stenosis L4/L5/S1 Outpatient spinal surgery follow up Flexeril p.r.n. TID Hypertension Continue home medication enalapril 10 mg daily History of asthma-controlled Albuterol nebulized treatment q.6 hour Lovenox 40 mg sc daily Plan discussed with patient in which all questions have been answered Goals of care discussed with patient for more than 27 minutes, full code status Case discussed with Dr. Mora Plan discussed with: Patient My Orders My Orders Orders - HERI REGALADO Procedure Category Date Status Time Aspirin Enteric PHA 09/14/24 In Process Coated Tablet 07:00 Cyclobenzaprine PHA 09/13/24 In Process Tablet (Flexeril 15:30 Docusate Sodium PHA 09/13/24 In Process Capsule (Colace 22:00 Albuterol Medneb PHA 09/13/24 In Process (Ventolin Medneb) 18:00 Enalapril Tablet PHA 09/14/24 In Process (Vasotec Tablet) 10:00 Elevate Each Leg W/ 1 SYLVIA 09/14/24 In Process Pillow P 09:27 Bilat Low Ext Art US 09/14/24 Taken Duplex 09:27 C-Reactive Protein LAB 09/14/24 In Process 10:46 * Radiologist Consult CONS 09/14/24 Transmitted 10:46 Date of Service: Sep 14, 2024 Billing Provider: CAROL MORA DO Common Visit Codes: [id number] INP/OBS CARE(HIGH) HERI REGALADO RESIDENT Sep 14, 2024 11:28 CAROL MORA DO Sep 20, 2024 07:08
--- NOTE | 2024-09-14 12:17 | DVH ---
US US GUIDANCE FOR NEEDLE PLACEME, HISTORY: KNEE DRAINAGE PROCEDURE: An informed consent was obtained. The patient was placed supine on the interventional tabl e. The left knee effusion was localized with ultrasound and the overlying skin prepped with chlorhex idine which was allowed to dry and draped in the usual sterile fashion. Time out was performed and in filtrated with 1% Xylocaine. With US guidance, 19-gauge centesis needle catheter was advanced into th e effusion. Approximately 100 cc of thick serous fluid was aspirated. No immediate complication was identified. The catheter was removed. FINDINGS: Limited US scan of through the left knee demonstrates a moderate knee effusion. Collection appears simple. IMPRESSION: Successful US left knee arthrocentesis with 100 mL removed.
[2024-09-14 13:25] LABS: Body Fluid Red Blood Cells 4213 CUMM (0-2000); Body Fluid White Blood Cells 3394 CUMM (0-200)
[2024-09-14 13:40] LABS: Body Fluid Polymorphonuclear 69 % (0-25)
[2024-09-15] VITALS (14 sets, daily range): BP systolic 117–143; BP diastolic 48–59; PULSE 51–72; RESP 15–20; TEMP 97.5–98.2; O2SAT 95–100
[2024-09-15 05:38] LABS: Basophils # (auto) 0.1 10 ^3/uL (0-0.2); Basophils % (auto) 1.4 % (0.0-2.0); Eosinophils # (auto) 0.3 10 ^3/uL (0-0.8); Hematocrit 34.6 % (36.0-46.0); Hemoglobin 11.9 g/dL (12.2-16.2); Lymphocytes # (auto) 2.3 10 ^3/uL (0.4-5.4); Lymphocytes % (auto) 42.2 % (10.0-50.0); Mean Corpuscular Hemoglobin 31.6 pg (28.0-32.0); Mean Corpuscular Hgb Conc. 34.4 g/dL (32.0-36.0); Mean Corpuscular Volume 91.8 fL (80.0-100.0); Monocytes # (auto) 0.5 10 ^3/uL (0-1.3); Monocytes % (auto) 8.7 % (0.0-12.0); Neutrophils # (auto) 2.3 10 ^3/uL (1.6-8.6); Neutrophils % (auto) 41.7 % (37.0-80.0); Nucleated Red Blood Cells % 0.1 %; Platelet Count (auto) 286 10^3/uL (140-450); Red Blood Cells 3.77 10^6/uL (4.0-5.20); White Blood Cell 5.5 10^3/uL (4.4-10.8)
[2024-09-15 05:45] LABS: Potassium 4.5 mmol/L (3.5-5.1); Sodium 142 mmol/L (136-145)
[2024-09-15 05:46] LABS: Anion Gap 6 (5-15); Carbon Dioxide 27 mmol/L (20-31)
[2024-09-15 05:47] LABS: Calcium 9.3 mg/dL (8.7-10.4)
[2024-09-15 05:48] LABS: Chloride 109 mmol/L (98-107)
[2024-09-15 05:51] LABS: Glucose 95 mg/dL (74-106)
[2024-09-15 05:52] LABS: BUN/Creatinine Ratio 12.5 (10.0-20.0); Blood Urea Nitrogen 9 mg/dL (9-23); Magnesium 2.3 mg/dL (1.6-2.6)
[2024-09-15 06:02] LABS: CRP High Sensitivity 5.31 mg/dL (<1.0)
[2024-09-15 13:31] LABS: Urine Bacteria FEW /hpf (None Seen); Urine Blood Negative /uL (Negative); Urine Clarity Clear (Clear); Urine Color Light-Yellow (Yellow); Urine Protein, UAD Negative (Negative); Urine Specific Gravity 1.008 (1.001-1.035); Urine Squamous Epithelial Cell FEW /hpf (<5); Urine Urobilinogen Normal (Negative); Urine WBC 1 /HPF (0-5)
--- NOTE | 2024-09-15 14:14 | DVHPNRES ---
Progress Note Date Seen: Sep 15, 2024 Resident Creating Document: HERI REGALADO RESIDENT Medical Necessity Reason Pt with a Central, PICC or Fol: No Subjective Review of Systems Mirna Pink is a Lebanese-speaking 83 year old female with past medical history of significant neural foraminal stenosis L4/L5/S1, hypertension, dyslipidemia, prediabetes, gout, osteoarthritis, asthma, ? Cervical cancer who presented to the ER with a chief complaint of lower extremity swelling and inability to ambulate. she was recently discharged from this hospital on 09/09 with significant neural foraminal stenosis and patient reports that this soon as she went home she started developing bilateral swelling and pain. Associated symptoms included fever but patient denied any shortness of breath or chest pain or nausea or vomiting. On admission, patient was febrile at 100.8 F, ESR 62, CRP 12, CBC and CMP unremarkable. Lower extremity CT showed diffuse soft tissue edema in the left ankle suspected cellulitis. Patient was started on IV vancomycin and cefepime. Past medical history: See above Surgical history: , hernia repair, cholecystectomy Social history: Lives with daughter, denies smoking or drug use. Home medication: Raloxifene, enalapril, oxybutynin, and multivitamins 09/14 Patient seen and examined at bedside. Left-sided swelling from toe up to the knee, CT scan showed moderate effusion of the left knee. IR consulted, patient underwent arthrocentesis, pending results. Called in lab to put in the order for joint Crystal 09/15-patient seen and examined at the bedside. Patient is ambulatory. Can put weight on the left leg. Physical therapy consulted. Joint aspiration study showed WBC 3000, RBC 4000. Polymorphic only 69. Culture prelim coming back negative. Objective vital signs Vital Sign Date Time Temp Pulse Resp B/P (MAP) Pulse Ox O2 Delivery O2 Flow Rate FiO2 09/15/24 12:24 60 18 98 09/15/24 12:16 Room Air 0.0 09/15/24 12:16 21 09/15/24 12:05 97.7 143/59 (87) 97.7 Total Intake and Output 09/14/24 09/14/24 09/15/24 15:00 23:00 07:00 Intake Total 150 ml 1050 ml 150 ml Output Total 200 ml Balance 150 ml 850 ml 150 ml medications Current Medications Medications Dose Ordered Sig/Rodney Route Start Time Stop Time Status Last Admin Dose Admin Acetaminophen 650 mg Q6HP PRN PO 09/13/24 01:30 Acetaminophen/ Hydrocodone Bitart 1 tab Q4HP PRN PO 09/13/24 01:30 09/15/24 01:51 1 TAB Enoxaparin Sodium 40 mg DAILY SC 09/13/24 10:00 09/15/24 10:26 40 MG Vancomycin HCl 0 ml @ 0 mls/hr UD IV 09/13/24 03:45 Cefepime HCl 50 ml @ 12.5 mls/hr Q8HR@0300,1100,1900 IV 09/13/24 11:00 09/15/24 11:46 12.5 MLS/HR Lactulose 30 ml BID PO 09/13/24 10:00 09/14/24 21:24 30 ML Diphenhydramine HCl 50 mg Q6HP PRN PO 09/13/24 10:00 09/15/24 01:52 50 MG Vancomycin HCl 150 ml @ 150 mls/hr Q18H IV 09/13/24 16:00 09/15/24 04:49 150 MLS/HR Aspirin 81 mg QAM PO 09/14/24 07:00 09/15/24 05:47 81 MG Cyclobenzaprine HCl 10 mg TIDPRN PRN PO 09/13/24 15:30 Docusate Sodium 100 mg BID PO 09/13/24 22:00 09/15/24 10:26 100 MG Albuterol 2.5 mg Q6HWA NEB 09/13/24 18:00 09/15/24 12:16 2.5 MG Enalapril Maleate 10 mg DAILY PO 09/14/24 10:00 09/15/24 10:26 10 MG Examination Patient lying in bed, in no acute distress General: Well-built, afebrile, palor, mucosae are moist Cardiovascular: Regular S1 and S2. No murmurs, gallops or rubs. No JVD elevation. Respiratory: Normal B/L air entry on room air. Clear lung sounds on auscultation Abdomen: Soft, nontender, nondistended, normoactive bowel sounds, no rebound tenderness, no organomegaly, no masses Genitourinary: Deferred MSK/skin: Mobilizes 4 limbs. Skin is dry and warm. Left lower extremity swelling with pitting edema from toes to the level of knee. Neurological: No motor, no sensitive deficits, normal speech. Pupils are isocoric and reactive. Psych/Mental Status: A/Ox3 laboratory and microbiology Laboratory Tests 09/15/24 04:14 Test 09/15/24 04:14 Range/Units Serum Glucose 95 74-106 mg/dL Microbiology Date/Time Source Procedure Growth Status 09/14/24 11:50 Aspirate Gram Stain - Final Resulted 09/14/24 11:50 Aspirate Body Fluid Culture - Preliminary Resulted 09/13/24 03:22 Nose MRSA Screen - Final Complete 09/12/24 19:05 Blood Blood Culture - Preliminary NO GROWTH AFTER 48 HOURS OF INCUBATION. Resulted Labs and/or images reviewed: Labs reviewed by me, Image(s) reviewed by me Problem List/Assessment/Plan Problem List/Assessment/Plan Acute left lower extremity cellulitis Ruled out necrotizing fascitis Moderate knee effusion status post arthrocentesis Ruled out DVT left lower extremity IV vancomycin and cefepime starting 09/12 Received IV fluids with IV NS Lasix 40 mg administered Blood culture pending ESR 62, CRP 12, CRP downtrending Radiologist Consulted-underwent arthrocentesis 09/14. Prelim culture shows no growth. Dyslipidemia Continue atorvastatin 40 mg daily Prediabetes mellitus Counseled regarding lifestyle measures for more than 28 minutes Neural foraminal stenosis L4/L5/S1 Outpatient spinal surgery follow up Flexeril p.r.n. TID Hypertension Continue home medication enalapril 10 mg daily History of asthma-controlled Albuterol nebulized treatment q.6 hour Lovenox 40 mg sc daily Physical therapy consulted Plan discussed with patient in which all questions have been answered Goals of care discussed with patient for more than 27 minutes, full code status Case discussed with Dr. Mora Plan discussed with: Patient Date of Service: Sep 15, 2024 Billing Provider: CAROL MORA DO Common Visit Codes: [id number] INP/OBS CARE(HIGH) HERI REGALADO RESIDENT Sep 15, 2024 14:14 CAROL MORA DO Sep 20, 2024 07:16
[2024-09-15] MEDS: VANCOMYCIN 1.25GM/250ML 250 ML IV SCH (22:46)
[2024-09-16] VITALS (12 sets, daily range): BP systolic 125–155; BP diastolic 39–85; PULSE 60–72; RESP 16–18; TEMP 97.5–98.5; O2SAT 93–100
[2024-09-16 06:09] LABS: Anion Gap 8 (5-15); Calcium 9.6 mg/dL (8.7-10.4); Carbon Dioxide 26 mmol/L (20-31)
[2024-09-16 06:12] LABS: Chloride 108 mmol/L (98-107); Potassium 4.2 mmol/L (3.5-5.1); Sodium 142 mmol/L (136-145)
[2024-09-16 06:14] LABS: BUN/Creatinine Ratio 11.8 (10.0-20.0); Glucose 94 mg/dL (74-106)
[2024-09-16 06:20] LABS: Blood Urea Nitrogen 8 mg/dL (9-23)
[2024-09-16] MEDS ORDERED: ACET1CAP14 PO (13:15)
[2024-09-16] MEDS ORDERED: DOXY50CA PO (13:15)
[2024-09-16] MEDS ORDERED: HYDR-3682 PO (13:16)
--- NOTE | 2024-09-16 14:06 | DVHDSRES ---
Discharge Summary Date of Admission Resident Creating Document: HERI REGALADO RESIDENT Sep 13, 2024 at 01:27 Date of Discharge: Sep 16, 2024 Admitting Diagnosis leg cellulites Labs/Diagnostic Data: Laboratory Results Test 09/16/24 04:27 09/15/24 20:59 09/15/24 13:20 09/15/24 04:14 Sodium Level 142 mmol/L (136-145) Potassium Level 4.2 mmol/L (3.5-5.1) Chloride Level 108 mmol/L (98-107) Carbon Dioxide Level 26 mmol/L (20-31) Anion Gap 8 (5-15) Blood Urea Nitrogen 8 mg/dL (9-23) Creatinine 0.68 mg/dL (0.550-1.02) Glomerular Filtration Rate Calc 86 mL/min (>90) BUN/Creatinine Ratio 11.8 (10.0-20.0) Serum Glucose 94 mg/dL (74-106) Calcium Level 9.6 mg/dL (8.7-10.4) Vancomycin Level Trough 7.9 ug/mL (5-10) Urine Color Light-yellow (Yellow) Urine Clarity Clear (Clear) Urine pH 5.0 (5.0-9.0) Urine Specific [place] 1.008 (1.001-1.035) Urine Protein Negative (Negative) Urine Ketones Negative (Negative) Urine Blood Negative /uL (Negative) Urine Nitrite Negative (Negative) Urine Bilirubin Negative (Negative) Urine Urobilinogen Normal mg/dL (Negative) Urine Leukocyte Esterase Negative /uL (Negative) Urine RBC None seen /hpf (0 - 4) Urine Microscopic WBC 1 /HPF (0-5) Urine Squamous Epithelial Cells Few /hpf (<5) Urine Bacteria Few /hpf (None Seen) Urine Glucose Normal mg/dL (Normal) White Blood Count 5.5 10^3/uL (4.4-10.8) Red Blood Count 3.77 10^6/uL (4.0-5.20) Hemoglobin 11.9 g/dL (12.2-16.2) Hematocrit 34.6 % (36.0-46.0) Mean Corpuscular Volume 91.8 fL (80.0-100.0) Mean Corpuscular Hemoglobin 31.6 pg (28.0-32.0) Mean Corpuscular Hemoglobin Concent 34.4 g/dL (32.0-36.0) Red Cell Distribution Width 13.0 % (11.8-14.3) Platelet Count 286 10^3/uL (140-450) Mean Platelet Volume 9.1 fL (6.9-10.8) Neutrophils (%) (Auto) 41.7 % (37.0-80.0) Lymphocytes (%) (Auto) 42.2 % (10.0-50.0) Monocytes (%) (Auto) 8.7 % (0.0-12.0) Eosinophils (%) (Auto) 6.0 % (0.0-7.0) Basophils (%) (Auto) 1.4 % (0.0-2.0) Neutrophils # (Auto) 2.3 10 ^3/uL (1.6-8.6) Lymphocytes # (Auto) 2.3 10 ^3/uL (0.4-5.4) Monocytes # (Auto) 0.5 10 ^3/uL (0-1.3) Eosinophils # (Auto) 0.3 10 ^3/uL (0-0.8) Basophils # (Auto) 0.1 10 ^3/uL (0-0.2) Nucleated Red Blood Cells 0.1 % Magnesium Level 2.3 mg/dL (1.6-2.6) C-Reactive Protein High Sensitivity 5.31 mg/dL (<1.0) Test 09/14/24 17:14 09/14/24 11:50 09/13/24 02:48 09/12/24 21:39 Body Fluid Source Knee fluid Bile Fluid Crystals Negative Body Fluid pH 8.0 Body Fluid WBC (Manual) 3394 CUMM (0-200) Body Fluid RBC (Manual) 4213 CUMM (0-2000) Body Fluid Mononuclear Cells 31 % Body Fluid Polymorphonuclear Cells 69 % (0-25) Body Fluid Glucose 99 mg/dL (.) Body Fluid Creatinine 1.0 mg/dL (Not Estab.) Differential Total Cells Counted 100.0 (100) Neutrophils % (Manual) 66 (37.0-80.0) Band Neutrophils % (Manual) 2 Lymphocytes % (Manual) 22 (10.0-50.0) Monocytes % (Manual) 8 (0-12) Eosinophils % (Manual) 2 (0-7) Basophils % (Manual) 0 (0.0-2.0) Metamyelocytes % (manual) 0 Myelocytes % (Manual) 0 Promyelocytes % (Manual) 0 Blast Cells % (Manual) 0 Reactive Lymphocytes 0 Platelet Estimate Adequate Red Blood Cell Morphology Normal Erythrocyte Sedimentation Rate 62 mm/hr (0-20) Uric Acid 4.6 mg/dL (3.1-7.8) Total Bilirubin 0.5 mg/dL (0.2-1.0) Aspartate Amino Transferase (AST) 14 U/L (13-40) Alanine Aminotransferase (ALT) 14 U/L (7-40) Alkaline Phosphatase 59 U/L (46-116) B-Type Natriuretic Peptide 75.01 pg/mL (0-100) Total Protein 6.6 g/dL (5.7-8.2) Albumin 3.9 g/dL (3.2-4.8) Thyroid Stimulating Hormone (TSH) 2.97 uIU/mL (0.55-4.78) Troponin I High Sensitivity 4 ng/L (</=34) Test 09/12/24 19:05 Lactic Acid Level 1.1 mmol/L (0.4-2.0) Other Laboratory Tests 09/16/24 04:27 09/15/24 04:14 Brief Hx & Hospital Course: A 83-year-old female patient with PMHX lumbar stenosis, hypertension, diabetes, osteoarthritis, and asthma, was admitted for acute lower extremity cellulitis. She initially presented to the ER with complaints of bilateral swelling and pain in her lower extremities, which began after discharge from a recent hospitalization for lumbar stenosis. On admission, she was febrile with an elevated ESR and CRP. A CT scan of the lower extremity showed soft tissue edema and suspected cellulitis, prompting the initiation of IV vancomycin and cefepime. The patient's condition was monitored, and an aspiration study revealed no growth on culture. Additionally, physical therapy was consulted to assist with mobility, and joint aspiration was performed on 09/14, with the pre- valencia culture results showing no growth. The patient was continued on supportive measures, including IV fluids and analgesia. Her blood pressure, temperature, and respiratory status remained stable. Her lab work indicated a downtrend in ESR and CRP levels, and she received necessary medications, including atorvastatin and enalapril for her pre-existing conditions. Upon discussion with the patient, all questions regarding her treatment and care were answered, The patient was discharged on 09/16/24 to home with self-care instructions, follow-up outpatient spinal surgery was scheduled for her pre-existing lumbar stenosis and oral AB. Patient lying in bed, in no acute distress General: Well-built, afebrile, palor, mucosae are moist Cardiovascular: Regular S1 and S2. No murmurs, gallops or rubs. No JVD elevation. Respiratory: Normal B/L air entry on room air. Clear lung sounds on auscultation Abdomen: Soft, nontender, nondistended, normoactive bowel sounds, no rebound tenderness, no organomegaly, no masses Genitourinary: Deferred MSK/skin: Mobilizes 4 limbs. Skin is dry and warm. Left lower extremity swelling with pitting edema from toes to the level of knee. Neurological: No motor, no sensitive deficits, normal speech. Pupils are isocoric and reactive. Psych/Mental Status: A/Ox3 Case discussed with Dr Mora Operations or Procedures US US GUIDANCE FOR NEEDLE PLACEME, HISTORY: KNEE DRAINAGE PROCEDURE: An informed consent was obtained. The patient was placed supine on the interventional table. The left knee effusion was localized with ultrasound and the overlying skin prepped with chlorhexidine which was allowed to dry and draped in the usual sterile fashion. Time out was performed and infiltrated with 1% Xylocaine. With US guidance, 19-gauge centesis needle catheter was advanced into the effusion. Approximately 100 cc of thick serous fluid was aspirated. No immediate complication was identified. The catheter was removed. FINDINGS: Limited US scan of through the left knee demonstrates a moderate knee effusion. Collection appears simple. IMPRESSION: Successful US left knee arthrocentesis with 100 mL removed. Examination : LLEX CLINICAL INDICATION: r/o necrotizing faciitis COMPARISON: None. CONTRAST USED: None. TECHNIQUE: Spiral axial CT images through the lower leg were acquired without contrast, reconstructed in multiple projections, and imaged using soft tissue and bone algorithms. The CT scan was performed according to ALARA (As Low as Reasonably Achievable) principles. Reformatted/MPR images were performed. FINDINGS: Osseous Structures: Grossly unremarkable mineralization, architecture, and alignment are noted. There is no CT evidence of fracture or osseous lesion identified. The joints appear unremarkable with no evidence of dislocation. Soft Tissues: There is no CT evidence of a soft tissue mass. Limited CT evaluation of the muscles and tendons is grossly unremarkable. However, there is diffuse soft tissue edema around the ankle joint and dorsal aspect of the foot, suggestive of probable changes of cellulitis. No obvious drainable collection is identified. Degenerative Changes: Jskqafsy-tt-cwtqau degenerative changes are observed in the tibiotalar and talofibular joints with subchondral cystic changes. Moderate degenerative changes are present in the intertarsal joint, and mild degenerative changes are noted in the metatarsophalangeal and interphalangeal joints. [id number] tricompartmental osteoarthritic changes are seen in the knee joint, along with moderate knee joint effusion. Calcification of the medial and lateral meniscus is present, and meniscal injury cannot be excluded. 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 The muscles in the anterior and posterior compartments of the leg appear unremarkable. IMPRESSION: 1. No evidence of acute fracture or dislocation. No changes of osteo-myelitis. 2. Qngwnjop-cg-axbrgf degenerative changes in the tibiotalar and talofibular joints with subchondral cystic changes. 3. Moderate degenerative changes in the intertarsal joint and mild degenerative changes in the metatarsophalangeal and interphalangeal joints. 4. Diffuse soft tissue edema around the ankle joint and dorsal aspect of the foot, probable changes of cellulitis. No obvious drainable collection is identified. 5. Mild thickening and calcification of the tibialis posterior tendon consistent with calcific tendinopathy. 6. Xpkq-hv-tlfmozrt tricompartmental osteoarthritic changes in the knee joint with moderate knee joint effusion. Calcification of the medial and lateral meniscus is noted, and meniscal injury is not excluded. Condition at Discharge: Stable Final Diagnosis/Problems List Acute left lower extremity cellulitis Ruled out necrotizing fascitis Moderate knee effusion status post arthrocentesis Ruled out DVT left lower extremity Dyslipidemia Prediabetes mellitus Neural foraminal stenosis L4/L5/S1 Hypertension History of asthma-controlled Discharge Disposition: Home Discharge Instruct/Medications Diet: Cardiac 2g Na,low cholest Activity: No Restrictions, As Tolerated Follow Up/Referral: [facility] Medications: see prescritpion Discharge Statement: "Patient was advised to return to the ER or call 911 if any headaches, dizziness, shortness of breath, chest pain, abdominal pain, bleeding, fevers, or worsening of medical condition. Patient was counseled about treatment plan, medications, possible side effects, patientverbalized understanding. All questions were answered to the best of my ability. This discharge took greater then 30 minutes in planning, reviewing documentation, counseling the patient, and discussing with other team members." ASSESSMENT ASSESSMENT Assessment cellulitis Date of Service: Sep 16, 2024 Billing Provider: CAROL MORA DO Common Visit Codes: 36966-ONV/OBS DISCH DAY >30min MARK DAVE RESIDENT Sep 16, 2024 14:06 CAROL MORA DO Sep 20, 2024 07:16
== END 2024-09-16 17:55 | disposition home or self-care (01) | DRG 603 ==
LOC: ER 17:45 → EDBD 17:45 → OVERFLOW 09-13 01:27 → CENTRAL 09-13 02:30
PROVIDERS: ADMIT Internal Medicine; ATTEND Emergency Medicine
PROC: 0S9D3ZZ Drainage of Left Knee Joint, Percutaneous Approach (ICD-10-PCS; principal; 2024-09-14)
DX: L03.116 Cellulitis of left lower limb (principal); I10 Essential (primary) hypertension; J45.909 Unspecified asthma, uncomplicated; E78.5 Hyperlipidemia, unspecified; F41.9 Anxiety disorder, unspecified; M10.9 Gout, unspecified; M25.462 Effusion, left knee; M48.061 Spinal stenosis, lumbar region without neurogenic claudication; M48.08 Spinal stenosis, sacral and sacrococcygeal region; E11.9 Type 2 diabetes mellitus without complications; Z79.82 Long term (current) use of aspirin; Z79.899 Other long term (current) drug therapy; Z90.49 Acquired absence of other specified parts of digestive tract; Z98.891 History of uterine scar from previous surgery; Z87.442 Personal history of urinary calculi
CPT/HCPCS: 20611; 36415; 71045; 73610; 73700; 76942; 80048; 80053; 80202; 81001; 82570; 83605; 83735; 83880; 83986; 84443; 84484; 84550; 85007; 85025; 85027; 85652; 86141; 87040; 87081; 87205; 89051; 89060; 93925; 93971; 94640; 99291; C1729; G0378; J0692